=== PATIENT | female | born 1965 | race Caucasian/White ===

== ENCOUNTER 2018-09-20 08:34 | Inpatient (IN) ==
[2018-09-20] MEDS ORDERED: Sod Chloride 0.9% Inj 1,000 ML IV.SIG ONE (09:07)
[2018-09-20] MEDS ORDERED: HYDROmorphone PF Inj 2 MG/ML Vial IV.PUSH ONE ×2 (09:07→11:29)
[2018-09-20] MEDS ORDERED: Sod Chloride 0.9% Inj 1,000 ML IV.CONT SCH (09:15)
[2018-09-20 10:16] LABS: Baso # (Auto) 0.1 th/mm3 (0.0-0.2); Baso % (Auto) 0.9 % (0.0-2.0); Eos # (Auto) 0.1 th/mm3 (0.0-0.4); Eos % (Auto) 0.5 % (0.0-4.0); Hematocrit 38.1 % (35.0-46.0); Hemoglobin 12.7 gm/dL (11.6-15.3); Lymph # (Auto) 0.9 th/mm3 (1.0-4.8); Lymph % (Auto) 7.9 % (9.0-44.0); Mean Corpuscular HGB Conc 33.2 % (32.0-36.0); Mean Corpuscular Hemoglobin 32.4 pg (27.0-34.0); Mean Corpuscular Volume 97.5 fL (80.0-100.0); Mean Platelet Volume 8.7 fL (7.0-11.0); Mono # (Auto) 0.9 th/mm3 (0.0-0.9); Mono % (Auto) 7.9 % (0.0-8.0); Neut # (Auto) 9.1 th/mm3 (1.8-7.7); Neut % (Auto) 82.8 % (16.0-70.0); Platelet Count 534 th/mm3 (150-450); Red Blood Count 3.91 mil/mm3 (4.00-5.30); Red Cell Distribution Width 16.3 % (11.6-17.2)
[2018-09-20 10:45] LABS: Alanine Aminotransferase 22 U/L (10-53); Alkaline Phosphatase 183 U/L (45-117); Total Protein 8.3 g/dL (6.4-8.2)
[2018-09-20 10:50] LABS: Albumin 2.8 g/dL (3.4-5.0); Anion Gap 12 meq/L (5-15); Aspartate Aminotransferase 58 U/L (15-37); Blood Urea Nitrogen 14 mg/dL (7-18); Calcium 8.9 mg/dL (8.5-10.1); Carbon Dioxide 25.1 meq/L (21.0-32.0); Chloride 104 meq/L (98-107); Glomerular Filtration Rate 57 mL/min (>89); Glucose,Random 136 mg/dL (74-106); Lipase 25 U/L (73-393); Magnesium 1.8 mg/dL (1.5-2.5); Sodium 141 meq/L (136-145)
[2018-09-20 11:01] LABS: Potassium 5.1 meq/L (3.5-5.1)
[2018-09-20] MEDS ORDERED: Sod Chloride 0.9% Inj 1,000 ML IV.SIG SCH (11:30)
--- NOTE | 2018-09-20 11:39 | ED ---
HPI General Chief complaint: Weakness Stated complaint: weakness/back pain Time Seen by Provider: 09/20/18 08:55 Source: patient, family and RN notes reviewed Mode of arrival: ambulatory Limitations: no limitations History of Present Illness HPI Narrative: Is a 52-year-old woman presents emergency department complaining of back and abdominal pain, and generalized weakness. In January of this year she reportedly had a bowel perforation treated with abdominal surgery complicated by wound infection and fistula formation. This was done in [place]. She also then had recurring surgeries for repair. Her most recent surgery was August 07 for repair of the fistula. She still has a wound but apparently is no longer having drainage of fluid. She has had persistent abdominal pain. She had a history of chronic abdominal pain prior to her surgery in January. They have been weaning her off opiates. She has not been on opiates for the past month or so since her surgery. She states today she is been having worsening generalized weakness, unable to walk for the past several days, with worsening back pain that she attributes to her pain. They apparently did some kind of muscle flap feels a rib puller to cover the abdominal wound. She had back pain since. Other abdominal surgical history includes hysterectomy, gastric bypass surgery in 2003, as well as a gallbladder removal. Related Data Home Medications Medication Instructions Recorded Confirmed amitriptyline 200 mg PO DAILY 09/20/18 09/20/18 baclofen 20 mg PO TID 09/20/18 09/20/18 levothyroxine 50 mcg PO DAILY 09/20/18 09/20/18 metoprolol tartrate 25 mg PO BID 09/20/18 09/20/18 Allergies Allergy/AdvReac Type Severity Reaction Status Date / Time bee venom protein (honey bee) Allergy Unconscious Verified 09/20/18 08:43 codeine Allergy Itching Verified 09/20/18 08:43 Penicillins Allergy Itching Verified 09/20/18 08:43 Review of Systems ROS: all other systems reviewed are negative [facility] Medical History Medical History Patient denies medical problems (Acute) Surgical History Surgical History H/O abdominal surgery (Acute) Social History Social History Second Hand Smoke Exposure: No Smoking Status: Never smoker How Often Do You Have a Drink Containing Alcohol: Never Recent Travel in [place] within the Last 8 Weeks: No Recent Out of Country Travel within the Last 8 Weeks: No Immunization History Tetanus Immunization: Unsure Exam Narrative Exam Narrative: GENERAL: Frail 52-year-old woman, moaning in pain, nontoxic. SKIN: Focused skin assessment warm/dry. HEAD: Atraumatic. Normocephalic. EYES: Pupils equal and round. No scleral icterus. No injection or drainage. ENT: No nasal bleeding or discharge. Mucous membranes pink and moist. NECK: Trachea midline. No JVD. CARDIOVASCULAR: Rapid but regular rate. No murmur appreciated. RESPIRATORY: No accessory muscle use. Clear to auscultation. Breath sounds equal bilaterally. GASTROINTESTINAL: Abdomen soft. Mild diffuse tenderness. No rebound or guarding. There is an abdominal wound in the middle. There is a gauze dressing over that. Wound is about 3 x 3 cm in size or so. No drainage. MUSCULOSKELETAL: No obvious deformities. No clubbing. No cyanosis. No edema. NEUROLOGICAL: Awake and alert. No obvious cranial nerve deficits. Motor grossly within normal limits. Normal speech. PSYCHIATRIC: Appropriate mood and affect; insight and judgment normal. Course Initial Documented Vital Signs Temperature 97.9 F 09/20/18 08:38 Pulse Rate 144 H 09/20/18 08:38 Respiratory Rate 22 09/20/18 08:38 Blood Pressure 131/73 09/20/18 08:38 Pulse Oximetry 100 09/20/18 08:38 Last Documented Vital Signs Temperature 97.9 F 09/20/18 08:38 Pulse Rate 120 H 09/20/18 12:57 Respiratory Rate 17 09/20/18 12:57 Blood Pressure 133/81 09/20/18 12:57 Pulse Oximetry 100 09/20/18 12:57 Medical Decision Making [facility] Narrative Medical decision making narrative: 52-year-old woman with complex abdominal surgical history presented with worsening abdominal and back pain associate with generalized weakness. She eats normal food now. Has since her last surgery. She was on TPN in the past. She states her bowel movements been relatively normal for her, she does have some alternating constipation and diarrhea since her surgeries. She looks dehydrated. Heart rate rapid. We will give IV fluid rehydration, pain control, imaging, electrolyte check, reassess. Medical Screen Exam Complete: Yes Emergency Medical Condition: Yes Lab Data Result diagrams: 09/20/18 09:30 09/20/18 09:30 Lab Results 09/20/18 09/20/18 Range/Units 09:30 09:30 WBC 11.0 (4.0-11.0) th/mm3 RBC 3.91 L (4.00-5.30) mil/mm3 Hgb 12.7 (11.6-15.3) gm/dL Hct 38.1 (35.0-46.0) % MCV 97.5 (80.0-100.0) fL MCH 32.4 (27.0-34.0) pg MCHC 33.2 (32.0-36.0) % RDW 16.3 (11.6-17.2) % Plt Count 534 H (150-450) th/mm3 MPV 8.7 (7.0-11.0) fL Neut % (Auto) 82.8 H (16.0-70.0) % Lymph % (Auto) 7.9 L (9.0-44.0) % [place] % (Auto) 7.9 (0.0-8.0) % Eos % (Auto) 0.5 (0.0-4.0) % Baso % (Auto) 0.9 (0.0-2.0) % Neut # (Auto) 9.1 H (1.8-7.7) th/mm3 Lymph # (Auto) 0.9 L (1.0-4.8) th/mm3 [place] # (Auto) 0.9 (0.0-0.9) th/mm3 Eos # (Auto) 0.1 (0.0-0.4) th/mm3 Baso # (Auto) 0.1 (0.0-0.2) th/mm3 WBC Differential . Differential Comment Auto diff final Sodium 141 (136-145) meq/L Potassium 5.1 (3.5-5.1) meq/L Chloride 104 (98-107) meq/L Carbon Dioxide 25.1 (21.0-32.0) meq/L Anion Gap 12 (5-15) meq/L BUN 14 (7-18) mg/dL Creatinine 1.02 H (0.50-1.00) mg/dL Estimated GFR 57 L (>89) mL/min Random Glucose 136 H (74-106) mg/dL Calcium 8.9 (8.5-10.1) mg/dL Magnesium 1.8 (1.5-2.5) mg/dL Total Bilirubin 0.4 (0.2-1.0) mg/dL AST 58 H (15-37) U/L ALT 22 (10-53) U/L Alkaline Phosphatase 183 H (45-117) U/L Total Protein 8.3 H (6.4-8.2) g/dL Albumin 2.8 L (3.4-5.0) g/dL Lipase 25 L (73-393) U/L Imaging Data Radiologist's impression: Abdomen/Pelvis CT 09/20/18 09:07 CONCLUSION: 1. Status post extensive abdominal surgery with partial bowel resection. There is a nonspecific bowel gas pattern present with a high density structure in the right mid pelvis of unclear significance. This could represent inspissated barium outside the bowel. Correlation with any old outside studies and clinical history would be helpful. 2. Status post splenectomy. 3. The osseous structures are intact. There is mild osteopenia and scoliosis. 4. Status post cholecystectomy with gas in the central biliary system which may be secondary to anastomosis. 5. Moderate hepatic steatosis. ECG Data Attestation: I personally reviewed and interpreted this ECG as follows: Interpretation: Sinus tachycardia 133, nonspecific lateral ST changes could represent rate ischemia, no definite ischemia, normal axis, and normal intervals. Discharge Plan Discharge Disposition Patient Disposition: 30 Still Patient Physicians Team ED Provider: Antoine Fontaine Primary Care Provider: UNKNOWN, Attending Provider: Blaine Freeman Interventions Interventions: Vital Signs Last Done: 09/20/18 12:57 Status ED Status: Admitted Observation Patient
--- NOTE | 2018-09-20 12:46 | CT ---
EXAM DATE: 09/20/2018 12:09 PM EDT AGE/SEX: 52 years / Female INDICATIONS: Fatigue and back pain since yesterday CLINICAL DATA: This is the patient's initial encounter. Patient reports that signs and symptoms have been present for 1 day and indicates a pain score of 10/10. MEDICAL/SURGICAL HISTORY: None. . Abdomen surgery ORAL CONTRAST: No oral contrast ingested. RADIATION DOSE: 9.46 CTDI (mGy) COMPARISON: No prior exams available for comparison. TECHNIQUE: Multiple contiguous axial images were obtained through the abdomen and pelvis following b olus infusion of 97 ml Omnipaque 350 (iohexol) nonionic water-soluble contrast as a single exam dos e. No oral contrast ingested. Using automated exposure control and adjustment of the mA and/or kV ac cording to patient size, radiation dose was kept as low as reasonably achievable to obtain optimal di agnostic quality images. DICOM format image data is available electronically for review and comparis on. FINDINGS: Lower Lungs: The visualized lower lungs are clear. Liver: The liver has a homogeneous density without space-occupying lesion. There is no dilation of th e biliary tree. There is moderate hepatic steatosis. The patient is status post cholecystectomy and t here is air in the central biliary system. Spleen: The patient is status post splenectomy. Pancreas: Unremarkable without mass or calcification. Kidneys: Normal in size and shape. No evidence of mass or hydronephrosis. Adrenal Glands: Unremarkable. Aorta: The aorta and proximal iliac vessels are grossly unremarkable without aneurysmal dilation. T here is an inferior vena caval filter present. Bowel/Mesentery: No oral contrast was given limiting the sensitivity of the exam. Extensive postsurg ical changes are noted with multiple surgical clips and chandan. There are multiple loops of nondilat ed air-containing small bowel with several small air-fluid levels. The patient is status post partial bowel resection. There is no free air or fluid. There is a high density structure in the right mid p ree measuring up to approximately 1.5 x 2.3 cm in greatest diameter. This measures 3000 Hounsfield units. Abdominal Wall: Intact. Retroperitoneum: No evidence of adenopathy in the retrocrural, para-aortic, or deep pelvic regions. Bladder: Contours are smooth. Reproductive Organs: No abnormal masses or calcifications seen. Inguinal: The inguinal region is unremarkable without evidence of adenopathy. Bony Structures: Osteopenia, degenerative changes and mild scoliosis are present. Patient is status post left hip arthroplasty. There is an old healed right inferior pubic rami fracture. CONCLUSION: 1. Status post extensive abdominal surgery with partial bowel resection. There is a nonspecific raya l gas pattern present with a high density structure in the right mid pelvis of unclear significance. This could represent inspissated barium outside the bowel. Correlation with any old outside studies a nd clinical history would be helpful. 2. Status post splenectomy. 3. The osseous structures are intact. There is mild osteopenia and scoliosis. 4. Status post cholecystectomy with gas in the central biliary system which may be secondary to anas tomosis. 5. Moderate hepatic steatosis. Electronically signed by: Blaine Cameron MD 09/20/2018 12:44 PM EDT
[2018-09-20] MEDS ORDERED: Acetaminophen 325 MG Tablet PO PRN (14:32)
[2018-09-20] MEDS ORDERED: Vancomycin Consult Pharmacy OTHER PRN (15:28)
--- NOTE | 2018-09-20 15:33 | P.HPIM ---
History of Present Illness Primary Care Physician: UNKNOWN Chief Complaint: Abdominal and back pain History of Present Illness: The patient is a 52-year-old female with past medical history of bowel obstruction and fistula formation who is presenting to the hospital with severe back and abdominal pain. She says yesterday she developed upper back pain. She says she noticed it when she was trying to ambulate. She associated weakness with it. She says the upper back pain is a 10 out of 10 in severity and has no radiation. She describes it as a squeezing type of ache. She denies any shortness of breath or chest pain. She does endorse palpitations. The patient says she also developed abdominal pain about 2 weeks ago. She says in July she had abdominal surgery which led to fistula formation. She says over the past couple of weeks she developed generalized severe abdominal pain. She is able to tolerate a diet. She has not been nauseous. She has been having normal bowel movements. She says she follows up with a surgeon at an outside hospital but has not seen the surgeon since she started to have the abdominal pain. She says she has an abdominal wound which has been bandaged. She follows up with her surgeon for that. She denies any drainage from the wound. Review of Systems All other systems reviewed negative except as stated in HPI PMFSH - History History Provided By: Patient, Family Member - Medical History Medical History: Medical History (Last Updated 09/20/18 @ 15:37 by Blaine Freeman DO) Bowel obstruction Hypothyroidism Pulmonary embolism TIA (transient ischemic attack) - Surgical History Surgical History: Surgical History (Last Reviewed 09/20/18 @ 15:37 by Blaine Freeman DO) H/O abdominal surgery - Family History Family History: Family History (Last Updated 09/20/18 @ 15:37 by Blaine Freeman DO) Other No pertinent family history - Social History I have reviewed the patient's Social History: Yes - Tobacco History Second Hand Smoke Exposure: No Tobacco Use In Past 30 Days: No Smoking Status: Never smoker - Alcohol History How Often Do You Have a Drink Containing Alcohol: Never - Travel History Recent Travel in the [place] Within the Last 8 Weeks: No Recent Travel Out of the Country Within the Last 8 Weeks: No - Immunization History Tetanus Immunization: Unsure Medications and Allergies Active Medications: Active Medications Acetaminophen (Tylenol) 650 mg PO Q4H PRN PRN Reason: Temp > 100.4, pain 1-2 Amitriptyline HCl (Elavil) 200 mg PO DAILY [facility] Baclofen (Lioresal) 20 mg PO TID [facility] Enoxaparin Sodium (Lovenox Inj) 30 mg SQ Q24H [facility] Sodium Chloride (Ns Inj) 1,000 mls @ 125 mls/hr IV.CONT .Q8H [facility] Stop: 09/20/18 17:14 Last Admin: 09/20/18 09:40 Dose: 125 mls/hr Cefepime HCl 2,000 mg/ Sodium (Chloride) 100 mls @ 200 mls/hr IV.SIG Q8H [facility] Levothyroxine Sodium (Synthroid) 50 mcg PO DAILY@0600 [facility] Metoprolol Tartrate (Lopressor) 25 mg PO BID [facility] Ondansetron HCl (Zofran Inj) 4 mg IV.PUSH Q6H PRN PRN Reason: NAUSEA OR VOMITING Pharmacy Profile Note (Vancomycin Consult Pharmacy) 1 each OTHER UNSCH PRN PRN Reason: Pharmacy to dose Senna/Docusate Sodium (Lin-Colace) 1 tab PO BID [facility] Sodium Chloride (Ns Flush) 2 ml IV.FLUSH PRN PRN PRN Reason: FLUSH AFTER USING IV ACCESS Allergies Allergy/AdvReac Type Severity Reaction Status Date / Time bee venom protein (honey bee) Allergy Unconscious Verified 09/20/18 08:43 codeine Allergy Itching Verified 09/20/18 08:43 Penicillins Allergy Itching Verified 09/20/18 08:43 Home Medications Medication Instructions Recorded Confirmed Type amitriptyline 200 mg PO DAILY 09/20/18 09/20/18 History baclofen 20 mg PO TID 09/20/18 09/20/18 History levothyroxine 50 mcg PO DAILY 09/20/18 09/20/18 History metoprolol tartrate 25 mg PO BID 09/20/18 09/20/18 History Exam Vital signs: Vital Signs 09/20/18 08:38 09/20/18 10:26 09/20/18 12:57 Temperature 97.9 F Pulse Rate 144 H 120 H 120 H Respiratory Rate 22 17 17 Blood Pressure 131/73 118/82 133/81 Pulse Oximetry 100 100 100 09/20/18 15:25 Temperature Pulse Rate 107 H Respiratory Rate 18 Blood Pressure 132/78 Pulse Oximetry 99 Intake & Output 09/19/18 09/20/18 09/20/18 18:59 06:59 18:59 Intake Total 1999 Balance 1999 Weight 54.431 kg Intake: IV 1999 NS Inj 1,000 ML @ 1000 mls/hr 1999 IV.SIG BOLUS [facility] Rx#:[id number] Narrative: GENERAL: No distress. SKIN: Focused skin assessment warm/dry. HEAD: Atraumatic. Normocephalic. EYES: Pupils equal and round. No scleral icterus. No injection or drainage. ENT: No nasal bleeding or discharge. Mucous membranes pink and moist. NECK: Trachea midline. No JVD. CARDIOVASCULAR: Tachycardic. No murmur appreciated. RESPIRATORY: No accessory muscle use. Clear to auscultation. Breath sounds equal bilaterally. GASTROINTESTINAL: Abdomen soft. Mild diffuse tenderness. No rebound or guarding. There is an abdominal wound in the middle. Wound is about 3 x 3 cm with purulent drainage. MUSCULOSKELETAL: No obvious deformities. No clubbing. No cyanosis. No edema. NEUROLOGICAL: Awake and alert. No obvious cranial nerve deficits. Motor grossly within normal limits. Normal speech. PSYCHIATRIC: Appropriate mood and affect; insight and judgment normal. Results - Labs CBC & Chem 7: 09/20/18 09:30 09/20/18 09:30 Labs: Short CBC 09/20/18 Range/Units 09:30 WBC 11.0 (4.0-11.0) th/mm3 Hgb 12.7 (11.6-15.3) gm/dL Hct 38.1 (35.0-46.0) % Plt Count 534 H (150-450) th/mm3 BMP 09/20/18 09:30 Sodium 141 Potassium 5.1 Chloride 104 Carbon Dioxide 25.1 BUN 14 Creatinine 1.02 H Calcium 8.9 Liver Function 09/20/18 Range/Units 09:30 Total Bilirubin 0.4 (0.2-1.0) mg/dL AST 58 H (15-37) U/L ALT 22 (10-53) U/L Alkaline Phosphatase 183 H (45-117) U/L Albumin 2.8 L (3.4-5.0) g/dL - Imaging Impressions Abdomen/Pelvis CT 09/20/18 09:07 CONCLUSION: 1. Status post extensive abdominal surgery with partial bowel resection. There is a nonspecific bowel gas pattern present with a high density structure in the right mid pelvis of unclear significance. This could represent inspissated barium outside the bowel. Correlation with any old outside studies and clinical history would be helpful. 2. Status post splenectomy. 3. The osseous structures are intact. There is mild osteopenia and scoliosis. 4. Status post cholecystectomy with gas in the central biliary system which may be secondary to anastomosis. 5. Moderate hepatic steatosis. Caprini VTE Risk Assessment Caprini VTE Risk Assessment: Moderate/High Risk (score >= 2) Caprini Risk Assessment Model: Point Value = 1 Point Value = 2 Point Value = 3 Point Value = 5 Age 41-60 Minor surgery BMI > 25 kg/m2 Swollen legs Varicose veins or History of unexplained or recurrent spontaneous Oral contraceptives or hormone replacement Sepsis (< 1 month) Serious lung disease, including pneumonia (< 1 month) Abnormal pulmonary function Acute myocardial infarction Congestive heart failure (< 1 month) History of inflammatory bowel disease Medical patient at bed rest Age 61-74 Arthroscopic surgery Major open surgery (> 45 min) Laparoscopic surgery (> 45 min) Malignancy Confined to bed (> 72 hours) Immobilizing plaster cast Central venous access Age >= 75 History of VTE Family history of VTE Factor V Leiden Prothrombin [id number] Lupus anticoagulant Anticardiolipin antibodies Elevated serum homocysteine Heparin-induced thrombocytopenia Other congenital or acquired thrombophilia Stroke (< 1 month) Elective arthroplasty Hip, pelvis, or leg fracture Acute spinal cord injury (< 1 month) Prophylaxis Regimen: Total Risk Factor Score Risk Level Prophylaxis Regimen 0-1 Low Early ambulation 2 Moderate Order ONE of the following: *Sequential Compression Device (SCD) *Heparin 5000 units SQ BID 3-4 Higher Order ONE of the following medications: *Heparin 5000 units SQ TID *Enoxaparin/Lovenox 40 mg SQ daily (WT < 150 kg, CrCl > 30 mL/min) *Enoxaparin/Lovenox 30 mg SQ daily (WT < 150 kg, CrCl > 10-29 mL/min) *Enoxaparin/Lovenox 30 mg SQ BID (WT < 150 kg, CrCl > 30 mL/min) AND/OR *Sequential Compression Device (SCD) 5 or more Highest Order ONE of the following medications: *Heparin 5000 units SQ TID (Preferred with Epidurals) *Enoxaparin/Lovenox 40 mg SQ daily (WT < 150 kg, CrCl > 30 mL/min) *Enoxaparin/Lovenox 30 mg SQ daily (WT < 150 kg, CrCl > 10-29 mL/min) *Enoxaparin/Lovenox 30 mg SQ BID (WT < 150 kg, CrCl > 30 mL/min) AND *Sequential Compression Device (SCD) Assessment and Plan - Plan Abdominal fistula/Abdominal pain The pt says she had surgery in July. She has had severe abdominal pain for two weeks. CT abdomen: Status post extensive abdominal surgery with partial bowel resection; There is a nonspecific bowel gas pattern present with a high density structure in the right mid pelvis of unclear significance, this could represent inspissated barium outside the bowel. She has an abdominal fistula with purulent drainage. -general surgery evaluation requested. -wound and blood cultures. -IV cefepime and vancomycin. -IVFs. -pain control with a bowel regimen. Severe back pain Pain in the upper back starting one day prior to admission. EKG with sinus tachycardia. Oxygen saturation is normal. No chest pain or shortness of breath. Tender to palpation of upper back, may be musculoskeletal. -trend trops. -CXR pending. -telemetry. -pain control. -PT eval. -check a D-dimer. CTA if positive. The pt does have a history of PE. Renal insufficiency Creatinine is elevated. -IVFs and monitor. -avoid nephrotoxins. Tachycardia Sinus, likely s/t above. -telemetry. -continue Lopressor. PPx: Lovenox
--- NOTE | 2018-09-20 15:55 | XR ---
EXAM DATE: 09/20/2018 3:51 PM EDT AGE/SEX: 52 years / Female INDICATIONS: Chest pain. CLINICAL DATA: This is the patient's initial encounter. Patient reports that signs and symptoms have been present for 1 day and indicates a pain score of 6/10. MEDICAL/SURGICAL HISTORY: None. . Abdominal surgery. COMPARISON: No prior exams available for comparison. FINDINGS: The heart is minimally enlarged. There is mild interstitial prominence. There is no evidence consolid ation, pleural effusion or pneumothorax. Degenerative changes are present about the right shoulder. Surgical clips are seen in the left hemidiaphragm. CONCLUSION: Cardiomegaly with probable mild interstitial edema. Electronically signed by: Aditya Dougherty MD 09/20/2018 3:54 PM EDT
[2018-09-20] MEDS: Enoxaparin Inj 30 MG/0.3 ML Syringe SQ SCH (15:57)
[2018-09-20] MEDS ORDERED: Vancomycin Inj 1,000 MG in Sodium Chlor 0.9% Inj 250 ML IV.SIG SCH (17:00)
[2018-09-20] MEDS ORDERED: Morphine Inj 4 MG/ML Vial IV.PUSH PRN (17:00)
[2018-09-20] MEDS: HYDROmorphone PF Inj 1 MG/ML Ampul IV.PUSH PRN (17:03)
--- NOTE | 2018-09-20 17:45 | P.CONGS ---
[facility] Gen Surgery Consult Note Consult date: 09/20/18 Narrative: 52 yo F extensive previous surgical history presented with abdominal pain and abdominal wound. She has had worsening abdominal pain for the last 2 weeks. She has continued to have bowel movements and seems to be tolerating diet. Unfortunately, she has had a extensive surgical history and she is not a very good historian. It sounds like she has had a gastric bypass, and exploratory laparotomy for bowel obstruction including a splenectomy, and 6 months ago in [place] exploratory laparotomy for small bowel obstruction. She relates that she followed up with her surgeon once. She does not remember his name. She has had a large abdominal wound possible fistula since that time and it sounds like she may be following up with another physician for this. Again it is hard to obtain an accurate history as far as what has been going on in the distant past and recently. CT abdomen and pelvis was performed showing extensive previous surgery, clips throughout the abdomen, history of splenectomy and cholecystectomy, air in the central biliary tree, some calcified mass in the right lower abdomen quite possibly outside the bowel. Review of Systems All other systems reviewed negative except as stated in [facility] - History History Provided By: Patient - Medical History Medical History: Medical History (Last Updated 09/20/18 @ 15:37 by Blaine rFeeman DO) Bowel obstruction Hypothyroidism Pulmonary embolism TIA (transient ischemic attack) - Surgical History Surgical History: Surgical History (Last Reviewed 09/20/18 @ 15:37 by Blaine Freeman DO) H/O abdominal surgery - Family History Family History: Family History (Last Updated 09/20/18 @ 15:37 by Blaine Freeman DO) Other No pertinent family history - Tobacco History Second Hand Smoke Exposure: No Tobacco Use In Past 30 Days: No Smoking Status: Never smoker - Alcohol History How Often Do You Have a Drink Containing Alcohol: Never - Substance Use History Substance History: No History of Abuse - Travel History Recent Travel in the [place] Within the Last 8 Weeks: No Recent Travel Out of the Country Within the Last 8 Weeks: No - Immunization History Tetanus Immunization: Unsure Medications and Allergies Active Medications: Active Medications Acetaminophen (Tylenol) 650 mg PO Q4H PRN PRN Reason: Temp > 100.4, pain 1-2 Hydrocodone Bitart/Acetaminophen ([place] 7.5/325) 1 tab PO Q4H PRN PRN Reason: pain 3-10 Amitriptyline HCl (Elavil) 200 mg PO DAILY [facility] Baclofen (Lioresal) 20 mg PO TID [facility] Last Admin: 09/20/18 16:41 Dose: 20 mg Enoxaparin Sodium (Lovenox Inj) 30 mg SQ Q24H [facility] Last Admin: 09/20/18 15:57 Dose: 30 mg Hydromorphone HCl (Dilaudid Pf Inj) 1 mg IV.PUSH Q4H PRN PRN Reason: BREAKTHROUGH PAIN Last Admin: 09/20/18 17:03 Dose: 1 mg Cefepime HCl 2,000 mg/ Sodium (Chloride) 100 mls @ 200 mls/hr IV.SIG Q8H [facility] Last Admin: 09/20/18 16:37 Dose: Not Given Vancomycin HCl 1,000 mg/ (Sodium Chloride) 250 mls @ 250 mls/hr IV.SIG Q24H [facility] Last Admin: 09/20/18 16:41 Dose: 250 mls/hr Levothyroxine Sodium (Synthroid) 50 mcg PO DAILY@0600 [facility] Metoprolol Tartrate (Lopressor) 25 mg PO BID [facility] Miscellaneous Information ([facility] Ordered Lab Info) 0 each OTHER ONCE ONE Stop: 09/23/18 16:46 Ondansetron HCl (Zofran Inj) 4 mg IV.PUSH Q6H PRN PRN Reason: NAUSEA OR VOMITING Pharmacy Profile Note (Vancomycin Consult Pharmacy) 1 each OTHER UNSCH PRN PRN Reason: Pharmacy to dose Senna/Docusate Sodium (Lin-Colace) 1 tab PO BID [facility] Sodium Chloride (Ns Flush) 2 ml IV.FLUSH PRN PRN PRN Reason: FLUSH AFTER USING IV ACCESS Allergies Allergy/AdvReac Type Severity Reaction Status Date / Time bee venom protein (honey bee) Allergy Unconscious Verified 09/20/18 08:43 codeine Allergy Itching Verified 09/20/18 08:43 Penicillins Allergy Itching Verified 09/20/18 08:43 Home Medications Medication Instructions Recorded Confirmed Type amitriptyline 200 mg PO DAILY 09/20/18 09/20/18 History baclofen 20 mg PO TID 09/20/18 09/20/18 History levothyroxine 50 mcg PO DAILY 09/20/18 09/20/18 History metoprolol tartrate 25 mg PO BID 09/20/18 09/20/18 History Exam Vital signs: Vital Signs 09/20/18 08:38 09/20/18 10:26 09/20/18 12:57 Temperature 97.9 F Pulse Rate 144 H 120 H 120 H Respiratory Rate 22 17 17 Blood Pressure 131/73 118/82 133/81 Pulse Oximetry 100 100 100 09/20/18 15:25 09/20/18 16:17 09/20/18 16:25 Temperature 98.9 F Pulse Rate 107 H 120 H 123 H Respiratory Rate 18 18 Blood Pressure 132/78 115/91 H Pulse Oximetry 99 100 Intake & Output 09/19/18 09/20/18 09/20/18 18:59 06:59 18:59 Intake Total 2099 Balance 2099 Weight 54.431 kg Intake: IV 2099 Maxipime Inj 2,000 MG In NS Inj 100 / 100 100 ML @ 200 mls/hr IV.SIG Q8H [facility] Rx#:[id number] NS Inj 1,000 ML @ 1000 mls/hr 1999 IV.SIG BOLUS [facility] Rx#:[id number] Narrative: GENERAL: Awake and alert. No acute distress. Cooperative. Somewhat chronically ill-appearing. Appears older than stated age. HEAD: Normocephalic. Atraumatic. EYES: Pupils equal round and reactive to light bilaterally. No scleral icterus. ENT: Moist oral mucosa. NECK: Trachea midline. CHEST: Nonlabored breathing. No respiratory distress. CARDIOVASCULAR: Regular rate and rhythm. ABDOMEN: Diffuse moderate tenderness. Extensive scarring of the abdominal wall. Granulating wound with some exudate in the midportion as well as visible fascial suture deeply. This is in the midline approximately 10 x 6 cm. No obvious intestinal drainage from this wound. EXTREMITIES: No cyanosis or edema. SKIN: Warm, dry, nonjaundiced. Results - Labs 09/20/18 09:30 09/21/18 03:12 Laboratory Results - last 24 hr 09/20/18 09/20/18 09/20/18 09:30 09:30 16:14 WBC 11.0 RBC 3.91 L Hgb 12.7 Hct 38.1 MCV 97.5 MCH 32.4 MCHC 33.2 RDW 16.3 Plt Count 534 H MPV 8.7 Neut % (Auto) 82.8 H Lymph % (Auto) 7.9 L [place] % (Auto) 7.9 Eos % (Auto) 0.5 Baso % (Auto) 0.9 Neut # (Auto) 9.1 H Lymph # (Auto) 0.9 L [place] # (Auto) 0.9 Eos # (Auto) 0.1 Baso # (Auto) 0.1 WBC Differential . Differential Comment Auto diff final Sodium 141 Potassium 5.1 Chloride 104 Carbon Dioxide 25.1 Anion Gap 12 BUN 14 Creatinine 1.02 H Estimated GFR 57 L POC Glucose 94 Random Glucose 136 H Calcium 8.9 Magnesium 1.8 Total Bilirubin 0.4 AST 58 H ALT 22 Alkaline Phosphatase 183 H Total Protein 8.3 H Albumin 2.8 L Lipase 25 L - Imaging Imaging: ITS Impressions Abdomen/Pelvis CT 09/20/18 09:07 CONCLUSION: 1. Status post extensive abdominal surgery with partial bowel resection. There is a nonspecific bowel gas pattern present with a high density structure in the right mid pelvis of unclear significance. This could represent inspissated barium outside the bowel. Correlation with any old outside studies and clinical history would be helpful. 2. Status post splenectomy. 3. The osseous structures are intact. There is mild osteopenia and scoliosis. 4. Status post cholecystectomy with gas in the central biliary system which may be secondary to anastomosis. 5. Moderate hepatic steatosis. Chest X-Ray 09/20/18 15:31 CONCLUSION: Cardiomegaly with probable mild interstitial edema. CT scan - abdomen: report reviewed, image reviewed CT scan - pelvis: report reviewed, image reviewed Assessment and Plan - Assessment (1) Open abdominal wall wound Code(s): S31.109A - Unspecified open wound of abdominal wall, unspecified quadrant without penetration into peritoneal cavity, initial encounter Status : Acute (2) History of splenectomy Code(s): Z90.81 - Acquired absence of spleen Status: Acute (3) History of gastric bypass Code(s): Z98.84 - Bariatric surgery status Status: Acute (4) Abdominal pain Code(s): R10.9 - Unspecified abdominal pain Status: Acute - Plan Large deep abdominal wall wound possible fistula. It is unclear who has been caring for this. Will consult wound care. Monitor for intestinal drainage. Abdominal pain with extensive abdominal surgical history. Obtain recent op reports from [place] and from [facility] in [place]. Ok for soft diet for now. Will repeat CT a/p with oral contrast for better evaluation.
[2018-09-21] MEDS: Metoprolol Tartrate 25 MG Tablet PO SCH ×3 (00:07→22:32)
[2018-09-21] MEDS: Senna/Docusate Sodium 8.6/50 MG Tablet PO SCH ×3 (00:07→22:47)
[2018-09-21 01:16] LABS: Bilirubin,Urine Negative (Negative); Clarity,Urine Slightly Cloudy (Clear); Glucose,Urine (UA) Negative (Negative); Leukocyte Esterase,Urine Small (Negative); Nitrite,Urine Negative (Negative); PH,Urine 6.5 (5.0-8.5); Urobilinogen,Urine 0.2 mg/dL (Less than 2)
[2018-09-21] MEDS: HYDROmorphone PF Inj 1 MG/ML Ampul IV.PUSH PRN ×3 (01:36→10:56)
[2018-09-21 01:52] LABS: Specific Gravity,Urine 1.019 (1.002-1.035); WBC,Urine 21-50 /hpf (0-5)
[2018-09-21 01:53] LABS: Squamous Epithelial Cell,Urine 0-5 /hpf (0-5)
[2018-09-21 01:54] LABS: Bacteria,Urine Few /hpf
[2018-09-21 04:25] LABS: Alanine Aminotransferase 16 U/L (10-53); Albumin 2.6 g/dL (3.4-5.0); Alkaline Phosphatase 161 U/L (45-117); Anion Gap 11 meq/L (5-15); Aspartate Aminotransferase 19 U/L (15-37); Blood Urea Nitrogen 8 mg/dL (7-18); Calcium 7.8 mg/dL (8.5-10.1); Carbon Dioxide 27.5 meq/L (21.0-32.0); Chloride 106 meq/L (98-107); Glomerular Filtration Rate Greater Than 89 mL/min (>89); Glucose,Random 94 mg/dL (74-106); Sodium 144 meq/L (136-145); Total Protein 7.3 g/dL (6.4-8.2)
[2018-09-21] MEDS: Levothyroxine 50 MCG Tablet PO SCH (05:32)
[2018-09-21 07:26] LABS: Baso # (Auto) 0.1 th/mm3 (0.0-0.2); Baso % (Auto) 1.5 % (0.0-2.0); Eos # (Auto) 0.6 th/mm3 (0.0-0.4); Eos % (Auto) 6.1 % (0.0-4.0); Hematocrit 34.6 % (35.0-46.0); Hemoglobin 11.5 gm/dL (11.6-15.3); Lymph # (Auto) 1.7 th/mm3 (1.0-4.8); Lymph % (Auto) 17.2 % (9.0-44.0); Mean Corpuscular HGB Conc 33.1 % (32.0-36.0); Mean Corpuscular Hemoglobin 31.7 pg (27.0-34.0); Mean Corpuscular Volume 95.7 fL (80.0-100.0); Mono # (Auto) 0.9 th/mm3 (0.0-0.9); Mono % (Auto) 8.8 % (0.0-8.0); Neut # (Auto) 6.5 th/mm3 (1.8-7.7); Neut % (Auto) 66.4 % (16.0-70.0); Platelet Count 424 th/mm3 (150-450); Red Blood Count 3.62 mil/mm3 (4.00-5.30); White Blood Count 9.8 th/mm3 (4.0-11.0)
[2018-09-21] MEDS ORDERED: Diatrizoate Meglum/Diatrizoate Sod Liq 9 ML UDC PO ONE (07:27)
[2018-09-21] MEDS: Amitriptyline 100 MG Tablet PO SCH (09:33)
--- NOTE | 2018-09-21 12:47 | P.PNIM ---
Subjective Interval history: Mrs. Morrison is a 52-year-old female admitted secondary to abdominal pain related to fistula Abdominal fistula Abdominal pain General surgery following Continue wound care Continue Comycin Continue cefepime Continue IV hydration Continue pain control Chronic back pain Continue pain management Follow clinically D-dimer is positive CTA of chest ordered Renal insufficiency IV hydration Continue monitoring renal function Avoid nephrotoxins Tachycardia May be related to pain Continue Lopressor Continue on telemetry DVT prophylaxis SCDs Lovenox Physical Exam Vital signs: Vital Signs 09/20/18 12:57 09/20/18 15:25 09/20/18 16:17 Temperature 98.9 F Pulse Rate 120 H 107 H 120 H Respiratory Rate 17 18 18 Blood Pressure 133/81 132/78 115/91 H Pulse Oximetry 100 99 100 09/20/18 16:25 09/20/18 20:00 09/20/18 22:35 Temperature 98.1 F 98.1 F Pulse Rate 123 H 104 H 109 H Respiratory Rate 14 14 Blood Pressure 133/75 149/78 H Pulse Oximetry 98 09/21/18 00:00 09/21/18 04:00 09/21/18 05:30 Temperature 98.0 F 97.9 F 98.7 F Pulse Rate 93 H 100 H 85 Respiratory Rate 20 20 20 Blood Pressure 142/82 H 118/77 122/63 Pulse Oximetry 98 99 95 09/21/18 08:00 09/21/18 11:55 Temperature 98.8 F 98.3 F Pulse Rate 105 H 106 H Respiratory Rate 18 18 Blood Pressure 145/89 H 108/67 Pulse Oximetry 99 96 Intake & Output 09/20/18 09/21/18 09/21/18 18:59 06:59 18:59 Intake Total 2350 / 2350 100 / 100 100 / 100 Balance 2350 / 2350 100 / 100 100 / 100 Weight 54.431 kg Intake: IV 2350 / 2350 100 / 100 100 / 100 Maxipime Inj 2,000 MG In NS Inj 100 / 100 100 / 100 100 / 100 100 ML @ 200 mls/hr IV.SIG Q8H [facility] Rx#:[id number] NS Inj 1,000 ML @ 1000 mls/hr 2000 / 1999 IV.SIG BOLUS [facility] Rx#:[id number] Vancomycin Inj 1,000 MG In NS 250 / 250 Inj 250 ML @ 250 mls/hr IV.SIG Q24H [facility] Rx#:[id number] Results - Labs CBC & Chem 7: 09/21/18 05:41 09/21/18 03:12 Laboratory Results - last 24 hr 09/20/18 09/20/18 09/20/18 16:14 21:09 21:09 WBC RBC Hgb Hct MCV MCH MCHC RDW Plt Count MPV Neut % (Auto) Lymph % (Auto) [place] % (Auto) Eos % (Auto) Baso % (Auto) Neut # (Auto) Lymph # (Auto) [place] # (Auto) Eos # (Auto) Baso # (Auto) WBC Differential Differential Comment D-Dimer Quant (PE/DVT) 1.36 H Sodium Potassium Chloride Carbon Dioxide Anion Gap BUN Creatinine Estimated GFR POC Glucose 94 Random Glucose Calcium Total Bilirubin AST ALT Alkaline Phosphatase Troponin I Less than 0.02 L Total Protein Albumin Urine Color Urine Clarity Urine pH Ur Specific [place] Urine Protein Urine Glucose (UA) Urine Ketones Urine Occult Blood Urine Nitrate Urine Bilirubin Urine Urobilinogen Ur Leukocyte Esterase Urine WBC Urine WBC Clumps Ur Squamous Epith Cells Urine Bacteria Micro UA Comment Ur Microscopic Review Urine Culture Comments 09/20/18 09/21/18 09/21/18 22:37 00:41 03:12 WBC RBC Hgb Hct MCV MCH MCHC RDW Plt Count MPV Neut % (Auto) Lymph % (Auto) [place] % (Auto) Eos % (Auto) Baso % (Auto) Neut # (Auto) Lymph # (Auto) [place] # (Auto) Eos # (Auto) Baso # (Auto) WBC Differential Differential Comment D-Dimer Quant (PE/DVT) Sodium 144 Potassium 3.0 L D Chloride 106 Carbon Dioxide 27.5 Anion Gap 11 BUN 8 Creatinine 0.62 Estimated GFR Greater than 89 POC Glucose 89 Random Glucose 94 Calcium 7.8 L D Total Bilirubin 0.3 AST 19 ALT 16 Alkaline Phosphatase 161 H Troponin I Less than 0.02 L Total Protein 7.3 D Albumin 2.6 L Urine Color Light-yellow Urine Clarity Slightly cloudy Urine pH 6.5 Ur Specific [place] 1.019 Urine Protein Negative Urine Glucose (UA) Negative Urine Ketones 15 H Urine Occult Blood Negative Urine Nitrate Negative Urine Bilirubin Negative Urine Urobilinogen 0.2 Ur Leukocyte Esterase Small H Urine WBC 21-50 H Urine WBC Clumps Few H Ur Squamous Epith Cells 0-5 Urine Bacteria Few H Micro UA Comment Culture indicated Ur Microscopic Review Not Reportable Urine Culture Comments Culture indicated 09/21/18 09/21/18 09/21/18 05:38 05:41 10:53 WBC 9.8 RBC 3.62 L Hgb 11.5 L Hct 34.6 L MCV 95.7 MCH 31.7 MCHC 33.1 RDW 16.0 Plt Count 424 MPV 9.0 Neut % (Auto) 66.4 Lymph % (Auto) 17.2 [place] % (Auto) 8.8 H Eos % (Auto) 6.1 H Baso % (Auto) 1.5 Neut # (Auto) 6.5 Lymph # (Auto) 1.7 [place] # (Auto) 0.9 Eos # (Auto) 0.6 H Baso # (Auto) 0.1 WBC Differential . Differential Comment Auto diff final D-Dimer Quant (PE/DVT) Sodium Potassium Chloride Carbon Dioxide Anion Gap BUN Creatinine Estimated GFR POC Glucose 81 Random Glucose Calcium Total Bilirubin AST ALT Alkaline Phosphatase Troponin I Less than 0.02 L Total Protein Albumin Urine Color Urine Clarity Urine pH Ur Specific [place] Urine Protein Urine Glucose (UA) Urine Ketones Urine Occult Blood Urine Nitrate Urine Bilirubin Urine Urobilinogen Ur Leukocyte Esterase Urine WBC Urine WBC Clumps Ur Squamous Epith Cells Urine Bacteria Micro UA Comment Ur Microscopic Review Urine Culture Comments 09/21/18 11:37 WBC RBC Hgb Hct MCV MCH MCHC RDW Plt Count MPV Neut % (Auto) Lymph % (Auto) [place] % (Auto) Eos % (Auto) Baso % (Auto) Neut # (Auto) Lymph # (Auto) [place] # (Auto) Eos # (Auto) Baso # (Auto) WBC Differential Differential Comment D-Dimer Quant (PE/DVT) Sodium Potassium Chloride Carbon Dioxide Anion Gap BUN Creatinine Estimated GFR POC Glucose 102 Random Glucose Calcium Total Bilirubin AST ALT Alkaline Phosphatase Troponin I Total Protein Albumin Urine Color Urine Clarity Urine pH Ur Specific [place] Urine Protein Urine Glucose (UA) Urine Ketones Urine Occult Blood Urine Nitrate Urine Bilirubin Urine Urobilinogen Ur Leukocyte Esterase Urine WBC Urine WBC Clumps Ur Squamous Epith Cells Urine Bacteria Micro UA Comment Ur Microscopic Review Urine Culture Comments Microbiology 09/20/18 21:05 Blood - Peripheral Aerobic Blood Culture - Preliminary No growth in 1 day 09/20/18 21:05 Blood - Peripheral Anaerobic Blood Culture - Preliminary No growth in 1 day 09/20/18 20:50 Blood - Peripheral Aerobic Blood Culture - Preliminary No growth in 1 day 09/20/18 20:50 Blood - Peripheral Anaerobic Blood Culture - Preliminary No growth in 1 day 09/20/18 16:00 Wound - Abdominal Gram Stain - Final - Imaging Impressions Abdomen/Pelvis CT 09/20/18 09:07 CONCLUSION: 1. Status post extensive abdominal surgery with partial bowel resection. There is a nonspecific bowel gas pattern present with a high density structure in the right mid pelvis of unclear significance. This could represent inspissated barium outside the bowel. Correlation with any old outside studies and clinical history would be helpful. 2. Status post splenectomy. 3. The osseous structures are intact. There is mild osteopenia and scoliosis. 4. Status post cholecystectomy with gas in the central biliary system which may be secondary to anastomosis. 5. Moderate hepatic steatosis. Chest X-Ray 09/20/18 15:31 CONCLUSION: Cardiomegaly with probable mild interstitial edema.
[2018-09-21] MEDS: oxyCODONE/Acetaminophen 10/325 Tablet PO PRN ×2 (13:27→17:03)
--- NOTE | 2018-09-21 13:39 | P.PNGS ---
Subjective Interval history: Persistent pain. Stable. WBC nml. No outside records yet despite request last night. Physical Exam Vital signs: Vital Signs 09/20/18 15:25 09/20/18 16:17 09/20/18 16:25 Temperature 98.9 F Pulse Rate 107 H 120 H 123 H Respiratory Rate 18 18 Blood Pressure 132/78 115/91 H Pulse Oximetry 99 100 09/20/18 20:00 09/20/18 22:35 09/21/18 00:00 Temperature 98.1 F 98.1 F 98.0 F Pulse Rate 104 H 109 H 93 H Respiratory Rate 14 14 20 Blood Pressure 133/75 149/78 H 142/82 H Pulse Oximetry 98 98 09/21/18 04:00 09/21/18 05:30 09/21/18 08:00 Temperature 97.9 F 98.7 F 98.8 F Pulse Rate 100 H 85 105 H Respiratory Rate 20 20 18 Blood Pressure 118/77 122/63 145/89 H Pulse Oximetry 99 95 99 09/21/18 11:55 Temperature 98.3 F Pulse Rate 106 H Respiratory Rate 18 Blood Pressure 108/67 Pulse Oximetry 96 Intake & Output 09/20/18 09/21/18 09/21/18 18:59 06:59 18:59 Intake Total 2350 / 2350 100 / 100 100 / 100 Balance 2350 / 2350 100 / 100 100 / 100 Weight 54.431 kg Intake: IV 2350 / 2350 100 / 100 100 / 100 Maxipime Inj 2,000 MG In NS Inj 100 / 100 100 / 100 100 / 100 100 ML @ 200 mls/hr IV.SIG Q8H [facility] Rx#:[id number] NS Inj 1,000 ML @ 1000 mls/hr 1999 / 1999 IV.SIG BOLUS [facility] Rx#:[id number] Vancomycin Inj 1,000 MG In NS 250 / 250 Inj 250 ML @ 250 mls/hr IV.SIG Q24H [facility] Rx#:[id number] Narrative: NAD Abd: soft, moderate diffuse ttp, midline wound granulating, purulent drainage, fascial suture visible. Results - Labs 09/21/18 05:41 09/21/18 03:12 Laboratory Results - last 24 hr 09/20/18 09/20/18 09/20/18 16:14 21:09 21:09 WBC RBC Hgb Hct MCV MCH MCHC RDW Plt Count MPV Neut % (Auto) Lymph % (Auto) [place] % (Auto) Eos % (Auto) Baso % (Auto) Neut # (Auto) Lymph # (Auto) [place] # (Auto) Eos # (Auto) Baso # (Auto) WBC Differential Differential Comment D-Dimer Quant (PE/DVT) 1.36 H Sodium Potassium Chloride Carbon Dioxide Anion Gap BUN Creatinine Estimated GFR POC Glucose 94 Random Glucose Calcium Total Bilirubin AST ALT Alkaline Phosphatase Troponin I Less than 0.02 L Total Protein Albumin Urine Color Urine Clarity Urine pH Ur Specific [place] Urine Protein Urine Glucose (UA) Urine Ketones Urine Occult Blood Urine Nitrate Urine Bilirubin Urine Urobilinogen Ur Leukocyte Esterase Urine WBC Urine WBC Clumps Ur Squamous Epith Cells Urine Bacteria Micro UA Comment Ur Microscopic Review Urine Culture Comments 09/20/18 09/21/18 09/21/18 22:37 00:41 03:12 WBC RBC Hgb Hct MCV MCH MCHC RDW Plt Count MPV Neut % (Auto) Lymph % (Auto) [place] % (Auto) Eos % (Auto) Baso % (Auto) Neut # (Auto) Lymph # (Auto) [place] # (Auto) Eos # (Auto) Baso # (Auto) WBC Differential Differential Comment D-Dimer Quant (PE/DVT) Sodium 144 Potassium 3.0 L D Chloride 106 Carbon Dioxide 27.5 Anion Gap 11 BUN 8 Creatinine 0.62 Estimated GFR Greater than 89 POC Glucose 89 Random Glucose 94 Calcium 7.8 L D Total Bilirubin 0.3 AST 19 ALT 16 Alkaline Phosphatase 161 H Troponin I Less than 0.02 L Total Protein 7.3 D Albumin 2.6 L Urine Color Light-yellow Urine Clarity Slightly cloudy Urine pH 6.5 Ur Specific [place] 1.019 Urine Protein Negative Urine Glucose (UA) Negative Urine Ketones 15 H Urine Occult Blood Negative Urine Nitrate Negative Urine Bilirubin Negative Urine Urobilinogen 0.2 Ur Leukocyte Esterase Small H Urine WBC 21-50 H Urine WBC Clumps Few H Ur Squamous Epith Cells 0-5 Urine Bacteria Few H Micro UA Comment Culture indicated Ur Microscopic Review Not Reportable Urine Culture Comments Culture indicated 09/21/18 09/21/18 09/21/18 05:38 05:41 10:53 WBC 9.8 RBC 3.62 L Hgb 11.5 L Hct 34.6 L MCV 95.7 MCH 31.7 MCHC 33.1 RDW 16.0 Plt Count 424 MPV 9.0 Neut % (Auto) 66.4 Lymph % (Auto) 17.2 [place] % (Auto) 8.8 H Eos % (Auto) 6.1 H Baso % (Auto) 1.5 Neut # (Auto) 6.5 Lymph # (Auto) 1.7 [place] # (Auto) 0.9 Eos # (Auto) 0.6 H Baso # (Auto) 0.1 WBC Differential . Differential Comment Auto diff final D-Dimer Quant (PE/DVT) Sodium Potassium Chloride Carbon Dioxide Anion Gap BUN Creatinine Estimated GFR POC Glucose 81 Random Glucose Calcium Total Bilirubin AST ALT Alkaline Phosphatase Troponin I Less than 0.02 L Total Protein Albumin Urine Color Urine Clarity Urine pH Ur Specific [place] Urine Protein Urine Glucose (UA) Urine Ketones Urine Occult Blood Urine Nitrate Urine Bilirubin Urine Urobilinogen Ur Leukocyte Esterase Urine WBC Urine WBC Clumps Ur Squamous Epith Cells Urine Bacteria Micro UA Comment Ur Microscopic Review Urine Culture Comments 09/21/18 11:37 WBC RBC Hgb Hct MCV MCH MCHC RDW Plt Count MPV Neut % (Auto) Lymph % (Auto) [place] % (Auto) Eos % (Auto) Baso % (Auto) Neut # (Auto) Lymph # (Auto) [place] # (Auto) Eos # (Auto) Baso # (Auto) WBC Differential Differential Comment D-Dimer Quant (PE/DVT) Sodium Potassium Chloride Carbon Dioxide Anion Gap BUN Creatinine Estimated GFR POC Glucose 102 Random Glucose Calcium Total Bilirubin AST ALT Alkaline Phosphatase Troponin I Total Protein Albumin Urine Color Urine Clarity Urine pH Ur Specific [place] Urine Protein Urine Glucose (UA) Urine Ketones Urine Occult Blood Urine Nitrate Urine Bilirubin Urine Urobilinogen Ur Leukocyte Esterase Urine WBC Urine WBC Clumps Ur Squamous Epith Cells Urine Bacteria Micro UA Comment Ur Microscopic Review Urine Culture Comments - Imaging Imaging: ITS Impressions Abdomen/Pelvis CT 09/20/18 09:07 CONCLUSION: 1. Status post extensive abdominal surgery with partial bowel resection. There is a nonspecific bowel gas pattern present with a high density structure in the right mid pelvis of unclear significance. This could represent inspissated barium outside the bowel. Correlation with any old outside studies and clinical history would be helpful. 2. Status post splenectomy. 3. The osseous structures are intact. There is mild osteopenia and scoliosis. 4. Status post cholecystectomy with gas in the central biliary system which may be secondary to anastomosis. 5. Moderate hepatic steatosis. Chest X-Ray 09/20/18 15:31 CONCLUSION: Cardiomegaly with probable mild interstitial edema. Assessment and Plan - Assessment (1) Open abdominal wall wound Code(s): S31.109A - Unspecified open wound of abdominal wall, unspecified quadrant without penetration into peritoneal cavity, initial encounter Status : Acute (2) History of splenectomy Code(s): Z90.81 - Acquired absence of spleen Status: Acute (3) History of gastric bypass Code(s): Z98.84 - Bariatric surgery status Status: Acute (4) Abdominal pain Code(s): R10.9 - Unspecified abdominal pain Status: Acute - Plan Large deep abdominal wall wound possible fistula. She has given more information now- was operated on most recently by Dr. Mackenzie at [facility] for fistula takedown. She most recently saw him two weeks ago and has another visit in a month or so. I called his office and spoke with his director of medical education who will be faxing medical records and we've also requested records from the hospital. Repeat CT a/p now with oral contrast for further evaluation.
--- NOTE | 2018-09-21 14:27 | P.PNWCN ---
Wound Care Nurse Consult Description: Consult for Wound Management of abdomen per Dr Chang Communicated with: DR Kevin Berry, RN Patient Recommendation: Cleanse abdominal wound with Normal Saline and gauze daily. Apply Santyl nickel thick to NS moistened 4x4 gauze [address] down into wound bed. Cover with Optifoam gentle border. Additional information: Patient seen in [facility] for wound evaluation of abdomen. Wound/Pressure Injury - Patient Status Premedicated for Pain Prior to Dressing Change: No - Wound Midline Abdomen Wound Assessment: Admission (post surgical closure of fistula at other surgical center) Requested from Provider a Wound Care Consult: Yes (Dr Chang) Length (cm): 9 (cm) Width (cm): 5 (cm) Depth (cm): 1.4 (cm) Wound Bed Appearance: Red (~60% non granulation tissue), Yellow (~40% adherent slough) Wound Bed Appearance: moist, not actively draining, fascial suture visible, pieces of wound VAC still in wound were removed. No odor noted. Hypergranulation tissue noted @6 o'clock and 8 o'clock. Wound margins are open. Surrounding Tissue Appearance: Shiny, Taut Drainage Description: removed dressing of gauze had dark yellow thin exudate Drainage Amount: Scant Drainage Odor: No Odor Dressing Status: Changed Cleansing Solution: Saline Wound Packing Type: Gauze Pads (Normal Saline moistened gauze ) Primary Dressing: Gauze Pad Cover Dressing: Gauze Pads Tape Type: Paper Wound Dressing Change Date: 09/21/18
[2018-09-21] MEDS: Collagenase Oint 30 GM Tube TOPICAL SCH (15:08)
[2018-09-21] MEDS: Enoxaparin Inj 30 MG/0.3 ML Syringe SQ SCH (15:08)
[2018-09-21] MEDS: Vancomycin Inj 750 MG in Sodium Chlor 0.9% Inj 250 ML IV.SIG SCH (15:29)
--- NOTE | 2018-09-21 17:41 | CT ---
EXAM DATE: 09/21/2018 5:33 PM EDT AGE/SEX: 52 years / Female INDICATIONS: Elevated D dimer. Back pain. CLINICAL DATA: This is the patient's initial encounter. Patient reports that signs and symptoms have been present for 1 day and indicates a pain score of 7/10. MEDICAL/SURGICAL HISTORY: Transient ischemic attack. Pulmonary emboli, bowel obstruction. . Left h ip surgery, stent. RADIATION DOSE: 14.31 CTDI (mGy) COMPARISON: . TECHNIQUE: Volumetric scanning was performed using a multi-row detector CT scanner during bolus infu abhay of 75 ml Omnipaque 350 (iohexol) nonionic water-soluble contrast as a cumulative dose for multi ple exams. The data was post processed with a variety of visualization algorithms including full volu me maximum intensity projection and sliding thin slab reformation. Using automated exposure control a nd adjustment of the mA and/or kV according to patient size, radiation dose was kept as low as reason ably achievable to obtain optimal diagnostic quality images. DICOM format image data is available el ectronically for review and comparison. FINDINGS: Pulmonary Arteries: No filling defects are seen in the pulmonary arteries out to the subsegmental ve ssels. The left and right pulmonary arteries are normal in diameter. Lung: No infiltrates seen. Effusion: None. Mediastinum: No evidence of mediastinal or hilar adenopathy. Other: The axilla is unremarkable. There are numerous surgical chandan and IVC filter in the upper a bdomen. There is air within the biliary tree in the liver I suspect related previous surgery or inter vention. Chronic compression fracture of T10. CONCLUSION: 1. No evidence of pulmonary embolism. Lungs are grossly clear. No concerning infiltrate or mass. No substantial pleural effusion. 2. There is a 6 mm pulmonary nodule in the right upper lobe (image 36). There is a 6 mm pulmonary no dule along the major fissure on the right (image 65). 3 mm pulmonary nodule in the left upper lobe on image 39. Follow-up noncontrast chest CT in 6 months is recommended. Electronically signed by: Antoine Cardona MD 09/21/2018 5:39 PM EDT
--- NOTE | 2018-09-21 17:51 | CT ---
EXAM DATE: 09/21/2018 5:41 PM EDT AGE/SEX: 52 years / Female INDICATIONS: Abdominal pain. CLINICAL DATA: This is the patient's initial encounter. Patient reports that signs and symptoms have been present for 1 day and indicates a pain score of 6/10. MEDICAL/SURGICAL HISTORY: Transient ischemic attack. Pulmonary emboli, bowel obstruction. . Le ft hip surgery, stent. ORAL CONTRAST: Prescribed oral contrast ingested. RADIATION DOSE: 8.11 CTDI (mGy) COMPARISON: [facility] [place] & PELVIS W CONTRAST, 09/20/2018. . TECHNIQUE: Multiple contiguous axial images were obtained through the abdomen and pelvis following b olus infusion of 75 ml Omnipaque 350 (iohexol) nonionic water-soluble contrast as a cumulative dose for multiple exams. Prescribed oral contrast ingested. Using automated exposure control and adjustm ent of the mA and/or kV according to patient size, radiation dose was kept as low as reasonably achie vable to obtain optimal diagnostic quality images. DICOM format image data is available electronical ly for review and comparison. FINDINGS: Lower Lungs: The visualized lower lungs are clear. Liver: There are some air within the liver I suspect in the biliary tree related to previous surgery. There are numerous surgical clips in the josé hepatis. There is no fluid around the liver. Spleen: Surgically absent. Pancreas: Unremarkable without mass or calcification. No obvious ductal dilatation. Kidneys: Normal in size and shape. No evidence of mass or hydronephrosis. Adrenal Glands: Unremarkable. Aorta: The aorta and proximal iliac vessels are grossly unremarkable without aneurysmal dilation. Bowel/Mesentery: There is a prominent area of inflammation in the left anterior pelvis. This retract ion with some small bowel (image 62). There is contrast now surrounding the dense calcifications seen on the previous days film. There is also significant contrast throughout the colon. Surgical clips left upper abdomen Abdominal Wall: Diffuse edema throughout the subcutaneous fat. No drainable fluid collections are id entified. Retroperitoneum: No evidence of adenopathy in the retrocrural, para-aortic, or deep pelvic regions. IVC filter in place. Bladder: Contours are smooth. Reproductive Organs: No abnormal masses or calcifications seen. Inguinal: The inguinal region is unremarkable without evidence of adenopathy. Bony Structures: Patient is a left hip arthroplasty. CONCLUSION: 1. The left anterior pelvis there is a area of distortion with some small bowel thickening. There is a large calcification that is actually slightly smaller today but most of the midline that was noted on the last study. There is a small locule of air (series 606 image 35) which is mildly concerning f or air within the mesentery. There certainly is some soft tissue thickening around that region. There is also dense contrast throughout the colon. Patient is not obstructed. There are some loops of smal l bowel that are distended but not dilated. Electronically signed by: Antoine Cardona MD 09/21/2018 5:49 PM EDT
[2018-09-21] MEDS ORDERED: HYDROmorphone PF Inj 2 MG/ML Vial IV.PUSH ONE (20:45)
[2018-09-22] MEDS: Vancomycin Inj 750 MG in Sodium Chlor 0.9% Inj 250 ML IV.SIG SCH ×2 (03:40→14:54)
[2018-09-22] MEDS: oxyCODONE/Acetaminophen 10/325 Tablet PO PRN ×5 (05:21→23:56)
[2018-09-22] MEDS: Levothyroxine 50 MCG Tablet PO SCH (05:21)
[2018-09-22 06:59] LABS: Baso # (Auto) 0.1 th/mm3 (0.0-0.2); Baso % (Auto) 1.5 % (0.0-2.0); Eos # (Auto) 0.7 th/mm3 (0.0-0.4); Eos % (Auto) 7.9 % (0.0-4.0); Hematocrit 33.6 % (35.0-46.0); Hemoglobin 11.3 gm/dL (11.6-15.3); Lymph # (Auto) 0.8 th/mm3 (1.0-4.8); Lymph % (Auto) 8.3 % (9.0-44.0); Mean Corpuscular HGB Conc 33.8 % (32.0-36.0); Mean Corpuscular Hemoglobin 32.2 pg (27.0-34.0); Mean Corpuscular Volume 95.3 fL (80.0-100.0); Mean Platelet Volume 9.3 fL (7.0-11.0); Mono # (Auto) 0.9 th/mm3 (0.0-0.9); Mono % (Auto) 9.2 % (0.0-8.0); Neut # (Auto) 6.8 th/mm3 (1.8-7.7); Neut % (Auto) 73.1 % (16.0-70.0); Platelet Count 386 th/mm3 (150-450); Red Blood Count 3.52 mil/mm3 (4.00-5.30); Red Cell Distribution Width 16.3 % (11.6-17.2); White Blood Count 9.3 th/mm3 (4.0-11.0)
[2018-09-22 07:33] LABS: Alanine Aminotransferase 16 U/L (10-53); Albumin 2.3 g/dL (3.4-5.0); Anion Gap 9 meq/L (5-15); Aspartate Aminotransferase 14 U/L (15-37); Blood Urea Nitrogen 11 mg/dL (7-18); Calcium 7.8 mg/dL (8.5-10.1); Carbon Dioxide 28.1 meq/L (21.0-32.0); Chloride 105 meq/L (98-107); Glomerular Filtration Rate Greater Than 89 mL/min (>89); Glucose,Random 80 mg/dL (74-106); Sodium 142 meq/L (136-145)
[2018-09-22 07:40] LABS: Alkaline Phosphatase 149 U/L (45-117); Total Protein 6.7 g/dL (6.4-8.2)
[2018-09-22 07:43] LABS: Potassium 2.8 meq/L (3.5-5.1)
[2018-09-22] MEDS ORDERED: Mag Sulf 1 gm/100 ml Premix 100 ML IV.SIG ONE (08:00)
[2018-09-22] MEDS: Amitriptyline 100 MG Tablet PO SCH (09:57)
[2018-09-22] MEDS: Senna/Docusate Sodium 8.6/50 MG Tablet PO SCH ×2 (09:58→21:12)
[2018-09-22] MEDS: Metoprolol Tartrate 25 MG Tablet PO SCH ×2 (09:58→21:12)
--- NOTE | 2018-09-22 10:03 | P.PNGS ---
Subjective Interval history: C/o pain throughout abdomen and in left thigh. Physical Exam Vital signs: Vital Signs 09/21/18 11:55 09/21/18 16:00 09/21/18 20:00 Temperature 98.3 F 98.2 F 98.7 F Pulse Rate 106 H 104 H 110 H Respiratory Rate 18 18 20 Blood Pressure 108/67 118/77 113/71 Pulse Oximetry 96 97 97 09/22/18 00:00 09/22/18 02:42 09/22/18 03:51 Temperature 98.7 F 99.0 F Pulse Rate 79 84 86 Respiratory Rate 16 16 Blood Pressure 109/60 122/64 Pulse Oximetry 97 97 09/22/18 07:20 Temperature 98.6 F Pulse Rate 103 H Respiratory Rate 20 Blood Pressure 98/71 L Pulse Oximetry 95 Intake & Output 09/21/18 09/22/18 09/22/18 18:59 06:59 18:59 Intake Total 1957.5 / 1957.5 357.5 / 357.5 Output Total 950 / 950 Balance 1007.5 / 1007.5 357.5 / 357.5 Intake: IV 1457.5 / 1457.5 357.5 / 357.5 Maxipime Inj 2,000 MG In NS Inj 200 / 200 100 / 100 100 ML @ 200 mls/hr IV.SIG Q8H [facility] Rx#:[id number] Vancomycin Inj 750 MG In NS Inj 257.5 / 257.5 257.5 / 257.5 250 ML @ 250 mls/hr IV.SIG Q12H [facility] Rx#:[id number] Oral 500 / 500 Output: Urine 950 / 950 Other: # Voids 3 Narrative: NAD Abd: bandage in place. Moderate diffuse ttp. LLE no erythema or obvious edema Results - Labs 09/22/18 05:47 09/22/18 05:47 Laboratory Results - last 24 hr 09/21/18 09/21/18 09/21/18 10:53 11:37 18:08 WBC RBC Hgb Hct MCV MCH MCHC RDW Plt Count MPV Neut % (Auto) Lymph % (Auto) [place] % (Auto) Eos % (Auto) Baso % (Auto) Neut # (Auto) Lymph # (Auto) [place] # (Auto) Eos # (Auto) Baso # (Auto) WBC Differential Differential Comment Sodium Potassium Chloride Carbon Dioxide Anion Gap BUN Creatinine Estimated GFR POC Glucose 102 94 Random Glucose Calcium Magnesium Total Bilirubin AST ALT Alkaline Phosphatase Troponin I Less than 0.02 L Total Protein Albumin 09/22/18 09/22/18 09/22/18 00:50 05:27 05:47 WBC 9.3 RBC 3.52 L Hgb 11.3 L Hct 33.6 L MCV 95.3 MCH 32.2 MCHC 33.8 RDW 16.3 Plt Count 386 MPV 9.3 Neut % (Auto) 73.1 H Lymph % (Auto) 8.3 L [place] % (Auto) 9.2 H Eos % (Auto) 7.9 H Baso % (Auto) 1.5 Neut # (Auto) 6.8 Lymph # (Auto) 0.8 L [place] # (Auto) 0.9 Eos # (Auto) 0.7 H Baso # (Auto) 0.1 WBC Differential . Differential Comment Auto diff final Sodium Potassium Chloride Carbon Dioxide Anion Gap BUN Creatinine Estimated GFR POC Glucose 88 80 Random Glucose Calcium Magnesium Total Bilirubin AST ALT Alkaline Phosphatase Troponin I Total Protein Albumin 09/22/18 09/22/18 09/22/18 05:47 05:47 08:38 WBC RBC Hgb Hct MCV MCH MCHC RDW Plt Count MPV Neut % (Auto) Lymph % (Auto) [place] % (Auto) Eos % (Auto) Baso % (Auto) Neut # (Auto) Lymph # (Auto) [place] # (Auto) Eos # (Auto) Baso # (Auto) WBC Differential Differential Comment Sodium 142 Potassium 2.8 L* Chloride 105 Carbon Dioxide 28.1 Anion Gap 9 BUN 11 Creatinine 0.50 Estimated GFR Greater than 89 POC Glucose 84 Random Glucose 80 Calcium 7.8 L Magnesium 2.1 Total Bilirubin 0.3 AST 14 L ALT 16 Alkaline Phosphatase 149 H Troponin I Total Protein 6.7 D Albumin 2.3 L - Imaging Imaging: ITS Impressions Chest X-Ray 09/20/18 15:31 CONCLUSION: Cardiomegaly with probable mild interstitial edema. Abdomen/Pelvis CT 09/21/18 00:00 CONCLUSION: 1. The left anterior pelvis there is a area of distortion with some small bowel thickening. There is a large calcification that is actually slightly smaller today but most of the midline that was noted on the last study. There is a small locule of air (series 606 image 35) which is mildly concerning for air within the mesentery. There certainly is some soft tissue thickening around that region. There is also dense contrast throughout the colon. Patient is not obstructed. There are some loops of small bowel that are distended but not dilated. Chest CTA 09/21/18 00:00 CONCLUSION: 1. No evidence of pulmonary embolism. Lungs are grossly clear. No concerning infiltrate or mass. No substantial pleural effusion. 2. There is a 6 mm pulmonary nodule in the right upper lobe (image 36). There is a 6 mm pulmonary nodule along the major fissure on the right (image 65). 3 mm pulmonary nodule in the left upper lobe on image 39. Follow-up noncontrast chest CT in 6 months is recommended. Assessment and Plan - Assessment (1) Open abdominal wall wound Code(s): S31.109A - Unspecified open wound of abdominal wall, unspecified quadrant without penetration into peritoneal cavity, initial encounter Status : Acute (2) History of splenectomy Code(s): Z90.81 - Acquired absence of spleen Status: Acute (3) History of gastric bypass Code(s): Z98.84 - Bariatric surgery status Status: Acute (4) Abdominal pain Code(s): R10.9 - Unspecified abdominal pain Status: Acute - Plan Abdominal painextremely extensive surgical history primarily associated with complications of previous Chivo-en-Y gastric bypass. I spoke with her surgeon who she is still following with Dr. Mackenzie in [place]. He initially saw her for perforated jejunojejunostomy where he performed extensive lysis of adhesions and repair. She developed enterocutaneous fistula in about 6 months ago she underwent an enterocutaneous fistula takedown. She had a wound VAC on the large abdominal wound until about 2 weeks ago where it was removed at his office. She has been on chronic narcotics until about 2 weeks ago when he stopped her narcotics. She had recently also seen a pain management physician but she was not given a prescription for narcotics. CT abdomen and pelvis repeated with oral contrast was reviewed by me as well as in person discussed with Dr. Navarro of radiology. There is evidence of complicated and extensive multiple prior surgeries. In the lower abdomen there is an area of some bowel wall thickening possible fistulous tracts between bowel loops. There does not appear to be any acute perforation. I have placed her on Flagyl to see if this inflammation could be improved. Will consult gastroenterology to consider upper endoscopy to be sure she does not have complications such as gastric jejunal marginal ulcer. I do think there could be a component of drug-seeking here due to chronic narcotic dependence with recent cessation of narcotics. History of DVT PE complaint of left thigh pain and concern for DVTwill order left lower extremity venous Doppler. The patient does not require any acute surgical intervention. She does not have a current enterocutaneous fistula.. I am going to follow peripherally. She requires continued wound care and she needs to follow-up closely with her surgeon.
--- NOTE | 2018-09-22 10:43 | US ---
EXAM DATE: 09/22/2018 10:35 AM EDT AGE/SEX: 52 years / Female INDICATIONS: Left leg pain. CLINICAL DATA: This is the patient's initial encounter. Patient reports that signs and symptoms have been present for 1 day and indicates a pain score of 4/10. MEDICAL/SURGICAL HISTORY: Hypothyroidism. Bowel obstruction. Pulmonary embolism. Transient isch emic attack. . Abdominal surgery. COMPARISON: No prior exams available for comparison. TECHNIQUE: Venous ultrasound of both lower extremities was performed from the inguinal ligament to t he proximal calf. Real-time, color Doppler and spectral tracing, compression and augmentation techni ques were used. FINDINGS: Normal compression of the deep venous system from the inguinal region to the proximal calf . No echogenic clot is seen. Normal response of the venous system to augmentation and respiration. CONCLUSION: No venous thrombosis is identified within the left lower extremity. Electronically signed by: Avinash Bass MD 09/22/2018 10:42 AM EDT
[2018-09-22] MEDS: Potassium Chlor 20 mEq Premix 20 MEQ/100 ML PIGGYBACK IV.SIG SCH ×2 (11:02→13:30)
[2018-09-22] MEDS: Sod Chloride 0.9% Inj 1,000 ML IV.CONT SCH ×2 (11:03→19:48)
--- NOTE | 2018-09-22 11:52 | P.PNIM ---
Subjective Interval history: Chief Complaint: Abdominal and back pain History of Present Illness: The patient is a 52-year-old female with past medical history of bowel obstruction and fistula formation who is presenting to the hospital with severe back and abdominal pain. She says yesterday she developed upper back pain. She says she noticed it when she was trying to ambulate. She associated weakness with it. She says the upper back pain is a 10 out of 10 in severity and has no radiation. She describes it as a squeezing type of ache. She denies any shortness of breath or chest pain. She does endorse palpitations. The patient says she also developed abdominal pain about 2 weeks ago. She says in July she had abdominal surgery which led to fistula formation. She says over the past couple of weeks she developed generalized severe abdominal pain. She is able to tolerate a diet. She has not been nauseous. She has been having normal bowel movements. She says she follows up with a surgeon at an outside hospital but has not seen the surgeon since she started to have the abdominal pain. She says she has an abdominal wound which has been bandaged. She follows up with her surgeon for that. She denies any drainage from the wound. 11-2 SEEN BY SURGERY AND MY [employer]LE[employer]UE HAD CAT SCANS GI WILL BE CONSULTED LEFT LE SHOWS NO DVT SEEN BY A SURGEON AT [facility] AM LABS HYPOKALEMIA WILL REPLACE WITH IV DUE TO ?ABSORPTION AM LABS Physical Exam Vital signs: Vital Signs 09/21/18 11:55 09/21/18 16:00 09/21/18 20:00 Temperature 98.3 F 98.2 F 98.7 F Pulse Rate 106 H 104 H 110 H Respiratory Rate 18 18 20 Blood Pressure 108/67 118/77 113/71 Pulse Oximetry 96 97 97 09/22/18 00:00 09/22/18 02:42 09/22/18 03:51 Temperature 98.7 F 99.0 F Pulse Rate 79 84 86 Respiratory Rate 16 16 Blood Pressure 109/60 122/64 Pulse Oximetry 97 97 09/22/18 07:20 09/22/18 11:11 Temperature 98.6 F 98.5 F Pulse Rate 103 H 105 H Respiratory Rate 20 16 Blood Pressure 98/71 L 106/61 Pulse Oximetry 95 95 Intake & Output 09/21/18 09/22/18 09/22/18 18:59 06:59 18:59 Intake Total 1957.5 / 1957.5 357.5 / 357.5 100 / 100 Output Total 950 / 950 Balance 1007.5 / 1007.5 357.5 / 357.5 100 / 100 Intake: IV 1457.5 / 1457.5 357.5 / 357.5 100 / 100 Maxipime Inj 2,000 MG In NS Inj 200 / 200 100 / 100 100 ML @ 200 mls/hr IV.SIG Q8H [facility] Rx#:[id number] Magnesium Sulfate 1 gm/D5W 100 100 / 100 ml Premix 100 ML @ 100 mls/hr IV.SIG ONCE ONE Rx#:[id number] Vancomycin Inj 750 MG In NS Inj 257.5 / 257.5 257.5 / 257.5 250 ML @ 250 mls/hr IV.SIG Q12H [facility] Rx#:[id number] Oral 500 / 500 Output: Urine 950 / 950 Other: # Voids 3 Narrative: GENERAL: No distress. SKIN: Focused skin assessment warm/dry. HEAD: Atraumatic. Normocephalic. EYES: Pupils equal and round. No scleral icterus. No injection or drainage. ENT: No nasal bleeding or discharge. Mucous membranes pink and moist. NECK: Trachea midline. No JVD. CARDIOVASCULAR: Tachycardic. No murmur appreciated. RESPIRATORY: No accessory muscle use. Clear to auscultation. Breath sounds equal bilaterally. GASTROINTESTINAL: Abdomen soft. Mild diffuse tenderness. No rebound or guarding. There is an abdominal wound in the middle. Wound is about 3 x 3 cm with purulent drainage. CURRENTLY DRESSED MUSCULOSKELETAL: No obvious deformities. No clubbing. No cyanosis. No edema. NEUROLOGICAL: Awake and alert. No obvious cranial nerve deficits. Motor grossly within normal limits. Normal speech. PSYCHIATRIC: Appropriate mood and affect; insight and judgment normal. Results - Labs CBC & Chem 7: 09/22/18 05:47 09/22/18 05:47 Laboratory Results - last 24 hr 09/21/18 09/21/18 09/21/18 00:41 10:53 11:37 WBC RBC Hgb Hct MCV MCH MCHC RDW Plt Count MPV Neut % (Auto) Lymph % (Auto) [place] % (Auto) Eos % (Auto) Baso % (Auto) Neut # (Auto) Lymph # (Auto) [place] # (Auto) Eos # (Auto) Baso # (Auto) WBC Differential Differential Comment Sodium Potassium Chloride Carbon Dioxide Anion Gap BUN Creatinine Estimated GFR POC Glucose 102 Random Glucose Calcium Magnesium Total Bilirubin AST ALT Alkaline Phosphatase Troponin I Less than 0.02 L Total Protein Albumin Urine Color Light-yellow Urine Clarity Slightly cloudy Urine pH 6.5 Ur Specific [place] 1.019 Urine Protein Negative Urine Glucose (UA) Negative Urine Ketones 15 H Urine Occult Blood Negative Urine Nitrate Negative Urine Bilirubin Negative Urine Urobilinogen 0.2 Ur Leukocyte Esterase Small H Urine WBC 21-50 H Urine WBC Clumps Few H Ur Squamous Epith Cells 0-5 Urine Bacteria Few H Micro UA Comment Culture indicated Urine Culture Comments Culture indicated 09/21/18 09/22/18 09/22/18 18:08 00:50 05:27 WBC RBC Hgb Hct MCV MCH MCHC RDW Plt Count MPV Neut % (Auto) Lymph % (Auto) [place] % (Auto) Eos % (Auto) Baso % (Auto) Neut # (Auto) Lymph # (Auto) [place] # (Auto) Eos # (Auto) Baso # (Auto) WBC Differential Differential Comment Sodium Potassium Chloride Carbon Dioxide Anion Gap BUN Creatinine Estimated GFR POC Glucose 94 88 80 Random Glucose Calcium Magnesium Total Bilirubin AST ALT Alkaline Phosphatase Troponin I Total Protein Albumin Urine Color Urine Clarity Urine pH Ur Specific [place] Urine Protein Urine Glucose (UA) Urine Ketones Urine Occult Blood Urine Nitrate Urine Bilirubin Urine Urobilinogen Ur Leukocyte Esterase Urine WBC Urine WBC Clumps Ur Squamous Epith Cells Urine Bacteria Micro UA Comment Urine Culture Comments 09/22/18 09/22/18 09/22/18 05:47 05:47 05:47 WBC 9.3 RBC 3.52 L Hgb 11.3 L Hct 33.6 L MCV 95.3 MCH 32.2 MCHC 33.8 RDW 16.3 Plt Count 386 MPV 9.3 Neut % (Auto) 73.1 H Lymph % (Auto) 8.3 L [place] % (Auto) 9.2 H Eos % (Auto) 7.9 H Baso % (Auto) 1.5 Neut # (Auto) 6.8 Lymph # (Auto) 0.8 L [place] # (Auto) 0.9 Eos # (Auto) 0.7 H Baso # (Auto) 0.1 WBC Differential . Differential Comment Auto diff final Sodium 142 Potassium 2.8 L* Chloride 105 Carbon Dioxide 28.1 Anion Gap 9 BUN 11 Creatinine 0.50 Estimated GFR Greater than 89 POC Glucose Random Glucose 80 Calcium 7.8 L Magnesium 2.1 Total Bilirubin 0.3 AST 14 L ALT 16 Alkaline Phosphatase 149 H Troponin I Total Protein 6.7 D Albumin 2.3 L Urine Color Urine Clarity Urine pH Ur Specific [place] Urine Protein Urine Glucose (UA) Urine Ketones Urine Occult Blood Urine Nitrate Urine Bilirubin Urine Urobilinogen Ur Leukocyte Esterase Urine WBC Urine WBC Clumps Ur Squamous Epith Cells Urine Bacteria Micro UA Comment Urine Culture Comments 09/22/18 08:38 WBC RBC Hgb Hct MCV MCH MCHC RDW Plt Count MPV Neut % (Auto) Lymph % (Auto) [place] % (Auto) Eos % (Auto) Baso % (Auto) Neut # (Auto) Lymph # (Auto) [place] # (Auto) Eos # (Auto) Baso # (Auto) WBC Differential Differential Comment Sodium Potassium Chloride Carbon Dioxide Anion Gap BUN Creatinine Estimated GFR POC Glucose 84 Random Glucose Calcium Magnesium Total Bilirubin AST ALT Alkaline Phosphatase Troponin I Total Protein Albumin Urine Color Urine Clarity Urine pH Ur Specific [place] Urine Protein Urine Glucose (UA) Urine Ketones Urine Occult Blood Urine Nitrate Urine Bilirubin Urine Urobilinogen Ur Leukocyte Esterase Urine WBC Urine WBC Clumps Ur Squamous Epith Cells Urine Bacteria Micro UA Comment Urine Culture Comments Microbiology 09/21/18 00:41 Clean Catch Urine Urine Culture - Preliminary Group D Enterococcus 09/20/18 21:05 Blood - Peripheral Aerobic Blood Culture - Preliminary No growth in 2 days 09/20/18 21:05 Blood - Peripheral Anaerobic Blood Culture - Preliminary No growth in 2 days 09/20/18 20:50 Blood - Peripheral Aerobic Blood Culture - Preliminary No growth in 2 days 09/20/18 20:50 Blood - Peripheral Anaerobic Blood Culture - Preliminary No growth in 2 days 09/20/18 16:00 Wound - Abdominal Gram Stain - Final 09/20/18 16:00 Wound - Abdominal Wound Culture - Preliminary Staphylococcus aureus - Imaging Impressions Abdomen/Pelvis CT 09/21/18 00:00 CONCLUSION: 1. The left anterior pelvis there is a area of distortion with some small bowel thickening. There is a large calcification that is actually slightly smaller today but most of the midline that was noted on the last study. There is a small locule of air (series 606 image 35) which is mildly concerning for air within the mesentery. There certainly is some soft tissue thickening around that region. There is also dense contrast throughout the colon. Patient is not obstructed. There are some loops of small bowel that are distended but not dilated. Chest CTA 09/21/18 00:00 CONCLUSION: 1. No evidence of pulmonary embolism. Lungs are grossly clear. No concerning infiltrate or mass. No substantial pleural effusion. 2. There is a 6 mm pulmonary nodule in the right upper lobe (image 36). There is a 6 mm pulmonary nodule along the major fissure on the right (image 65). 3 mm pulmonary nodule in the left upper lobe on image 39. Follow-up noncontrast chest CT in 6 months is recommended. Venous Doppler Study 09/22/18 00:00 CONCLUSION: No venous thrombosis is identified within the left lower extremity. Assessment and Plan - Plan Mrs. Morrison is a 52-year-old female admitted secondary to abdominal pain related to fistula Abdominal fistula Abdominal pain General surgery following Continue wound care Continue Comycin Continue cefepime Continue IV hydration Continue pain control Chronic back pain Continue pain management Follow clinically D-dimer is positive CTA of chest ordered Renal insufficiency IV hydration Continue monitoring renal function Avoid nephrotoxins Tachycardia May be related to pain Continue Lopressor Continue on telemetry HYPOKALEMIA- REPLACE WITH IV MEDS DVT prophylaxis SCDs Lovenox AM LABS Code Status: FULL CODE Discussed Condition With: RN AND PT AND CM Discharge Planning: CONSULTED GI BY SURGERY AND US OF LEFT LE WAS NEGATIVE AM LABS
--- NOTE | 2018-09-22 13:25 | P.CONGI ---
History of Present Illness Consult date: 09/22/18 Consult reason: History of gastric bypass Abdominal pain Chief complaint: Abdominal pain, Tachycardia History of Present Illness: This patient is a 52-year-old female with a past medical history of small bowel obstruction with resection and fistula formation. Patient presented to the emergency room at [facility] on 09/20/2018 with complaint of back and abdominal pain. Patient endorses that she had small bowel resection done in July 2018. This surgery led to a formation of a fistula. She had a wound vacuum but surgeon removed the same and abdominal wound is now covered with bandage. Upon consultation patient endorses gastric bypass surgery in 2002. She states that she has been experiencing epigastric pain with generalized weakness for 1 week. She endorses nausea but denies any associated vomiting. Patient describes her epigastric pain is burning and aching. She denies any aggravating or alleviating factors. States she takes pantoprazole twice daily and has been doing so for 6 months. She reports EGD done in 2016 at a hospital in [place] where she needed dilation of stricture. Patient states she has been having the sensation of food getting stuck in her throat(solid food and medications) for a few months. She reports multiple EGDs in the past done for esophageal strictures. Patient denies odynophagia or unintended weight loss. Patient reports last colonoscopy done estimated 10 years ago and to her recollection the findings were normal. Patient states she has normal soft brown bowel movements daily and denies any constipation or diarrhea. Patient denies any noted bleeding. Denies any tobacco use or use of alcohol products. Discussed possible need for EGD with dilation, patient verbalizes understanding and agreement. <Gela Lizarraga - Last Filed: 09/22/18 13:13> Review of Systems All other systems reviewed negative except as stated in HPI <Gela Lizarraga - Last Filed: 09/22/18 13:13> PMFSH - History History Provided By: Patient - Medical History Medical History: Medical History (Last Reviewed 09/21/18 @ 07:47 by Jael Brito) Bowel obstruction Hypothyroidism Pulmonary embolism TIA (transient ischemic attack) - Surgical History Surgical History: Surgical History (Last Reviewed 09/21/18 @ 07:47 by Jael Brito) H/O abdominal surgery - Family History Family History: Family History (Last Updated 09/20/18 @ 15:37 by Blaine Freeman DO) Other No pertinent family history - Tobacco History Second Hand Smoke Exposure: No Tobacco Use In Past 30 Days: No Smoking Status: Never smoker - Alcohol History How Often Do You Have a Drink Containing Alcohol: Never - Substance Use History Substance History: No History of Abuse - Travel History Recent Travel in the [place] Within the Last 8 Weeks: No Recent Travel Out of the Country Within the Last 8 Weeks: No - Immunization History Tetanus Immunization: Unsure <Gela Lizarraga - Last Filed: 09/22/18 13:13> - Medical History Medical History: Medical History (Last Reviewed 09/21/18 @ 07:47 by Jael Brito) Bowel obstruction Hypothyroidism Pulmonary embolism TIA (transient ischemic attack) - Surgical History Surgical History: Surgical History (Last Reviewed 09/21/18 @ 07:47 by Jael Brito) H/O abdominal surgery - Family History Family History: Family History (Last Updated 09/20/18 @ 15:37 by Blaine Freeman DO) Other No pertinent family history <Yony Garcia - Last Filed: 09/22/18 18:46> Medications and Allergies Active Medications: Active Medications Acetaminophen (Tylenol) 650 mg PO Q4H PRN PRN Reason: Temp > 100.4, pain 1-2 Amitriptyline HCl (Elavil) 200 mg PO DAILY [facility] Last Admin: 09/22/18 09:57 Dose: 200 mg Baclofen (Lioresal) 20 mg PO TID [facility] Last Admin: 09/22/18 09:57 Dose: 20 mg Collagenase (Santyl Oint) 1 applicatio TOPICAL DAILY [facility] Last Admin: 09/21/18 15:08 Dose: 1 applicatio Enoxaparin Sodium (Lovenox Inj) 30 mg SQ Q24H [facility] Last Admin: 09/21/18 15:08 Dose: 30 mg Cefepime HCl 2,000 mg/ Sodium (Chloride) 100 mls @ 200 mls/hr IV.SIG Q8H [facility] Last Infusion: 09/22/18 12:56 Dose: Infused Vancomycin HCl 750 mg/ Sodium (Chloride) 257.5 mls @ 250 mls/hr IV.SIG Q12H [facility] Last Infusion: 09/22/18 06:31 Dose: Infused Potassium Chloride (Kcl 10 Meq Premix Inj) 10 meq in 100 mls @ 100 mls/hr IV.SIG Q1H [facility] Stop: 09/22/18 15:59 Sodium Chloride (Ns Inj) 1,000 mls @ 100 mls/hr IV.CONT .Q10H [facility] Last Admin: 09/22/18 11:03 Dose: 100 mls/hr Levothyroxine Sodium (Synthroid) 50 mcg PO DAILY@0600 [facility] Last Admin: 09/22/18 05:21 Dose: 50 mcg Metoprolol Tartrate (Lopressor) 25 mg PO BID [facility] Last Admin: 09/22/18 09:58 Dose: 25 mg Metronidazole (Flagyl) 500 mg PO Q8HR [facility] Miscellaneous Information ([facility] Ordered Lab Info) 0 each OTHER ONCE ONE Stop: 09/23/18 02:46 Ondansetron HCl (Zofran Inj) 4 mg IV.PUSH Q6H PRN PRN Reason: NAUSEA OR VOMITING Last Admin: 09/22/18 10:05 Dose: 4 mg Oxycodone/Acetaminophen (Percocet 5/325 Mg) 1 tab PO Q4H PRN PRN Reason: Pain 3 to 6 Oxycodone/Acetaminophen (Percocet 10/325 Mg) 1 tab PO Q4H PRN PRN Reason: Pain 7 to 10 Last Admin: 09/22/18 09:15 Dose: 1 tab Pharmacy Profile Note (Vancomycin Consult Pharmacy) 1 each OTHER UNSCH PRN PRN Reason: Pharmacy to dose Senna/Docusate Sodium (Lin-Colace) 1 tab PO BID [facility] Last Admin: 09/22/18 09:58 Dose: 1 tab Sodium Chloride (Ns Flush) 2 ml IV.FLUSH PRN PRN PRN Reason: FLUSH AFTER USING IV ACCESS <Gela Lizarraga - Last Filed: 09/22/18 13:13> Active Medications: Active Medications Acetaminophen (Tylenol) 650 mg PO Q4H PRN PRN Reason: Temp > 100.4, pain 1-2 Amitriptyline HCl (Elavil) 200 mg PO DAILY [facility] Last Admin: 09/22/18 09:57 Dose: 200 mg Baclofen (Lioresal) 20 mg PO TID [facility] Last Admin: 09/22/18 13:52 Dose: 20 mg Collagenase (Santyl Oint) 1 applicatio TOPICAL DAILY [facility] Last Admin: 09/22/18 13:32 Dose: 1 applicatio Enoxaparin Sodium (Lovenox Inj) 30 mg SQ Q24H [facility] Last Admin: 09/21/18 15:08 Dose: 30 mg Cefepime HCl 2,000 mg/ Sodium (Chloride) 100 mls @ 200 mls/hr IV.SIG Q8H [facility] Last Infusion: 09/22/18 16:56 Dose: Infused Vancomycin HCl 750 mg/ Sodium (Chloride) 257.5 mls @ 250 mls/hr IV.SIG Q12H [facility] Last Infusion: 09/22/18 16:56 Dose: Infused Sodium Chloride (Ns Inj) 1,000 mls @ 100 mls/hr IV.CONT .Q10H [facility] Last Admin: 09/22/18 11:03 Dose: 100 mls/hr Potassium Chloride (Kcl 10 Meq Premix Inj) 10 meq in 100 mls @ 100 mls/hr IV.SIG Q1H [facility] Stop: 09/22/18 18:59 Last Infusion: 09/22/18 18:22 Dose: Infused Levothyroxine Sodium (Synthroid) 50 mcg PO DAILY@0600 [facility] Last Admin: 09/22/18 05:21 Dose: 50 mcg Metoprolol Tartrate (Lopressor) 25 mg PO BID [facility] Last Admin: 09/22/18 09:58 Dose: 25 mg Metronidazole (Flagyl) 500 mg PO Q8HR [facility] Last Admin: 09/22/18 13:52 Dose: 500 mg Miscellaneous Information ([facility] Ordered Lab Info) 0 each OTHER ONCE ONE Stop: 09/23/18 02:46 Ondansetron HCl (Zofran Inj) 4 mg IV.PUSH Q6H PRN PRN Reason: NAUSEA OR VOMITING Last Admin: 09/22/18 10:05 Dose: 4 mg Oxycodone/Acetaminophen (Percocet 5/325 Mg) 1 tab PO Q4H PRN PRN Reason: Pain 3 to 6 Oxycodone/Acetaminophen (Percocet 10/325 Mg) 1 tab PO Q4H PRN PRN Reason: Pain 7 to 10 Last Admin: 09/22/18 15:04 Dose: 1 tab Pantoprazole Sodium (Protonix) 40 mg PO BID [facility] Pharmacy Profile Note (Vancomycin Consult Pharmacy) 1 each OTHER UNSCH PRN PRN Reason: Pharmacy to dose Senna/Docusate Sodium (Lin-Colace) 1 tab PO BID [facility] Last Admin: 09/22/18 09:58 Dose: 1 tab Sodium Chloride (Ns Flush) 2 ml IV.FLUSH PRN PRN PRN Reason: FLUSH AFTER USING IV ACCESS <JoseYony mcdonnell - Last Filed: 09/22/18 18:46> Allergies Allergy/AdvReac Type Severity Reaction Status Date / Time bee venom protein (honey bee) Allergy Unconscious Verified 09/20/18 08:43 codeine Allergy Itching Verified 09/20/18 08:43 Penicillins Allergy Itching Verified 09/20/18 08:43 Home Medications Medication Instructions Recorded Confirmed Type amitriptyline 200 mg PO DAILY 09/20/18 09/20/18 History baclofen 20 mg PO TID 09/20/18 09/20/18 History levothyroxine 50 mcg PO DAILY 09/20/18 09/20/18 History metoprolol tartrate 25 mg PO BID 09/20/18 09/20/18 History Exam Vital signs: Vital Signs 09/21/18 16:00 09/21/18 20:00 09/22/18 00:00 Temperature 98.2 F 98.7 F 98.7 F Pulse Rate 104 H 110 H 79 Respiratory Rate 18 20 16 Blood Pressure 118/77 113/71 109/60 Pulse Oximetry 97 97 97 09/22/18 02:42 09/22/18 03:51 09/22/18 07:20 Temperature 99.0 F 98.6 F Pulse Rate 84 86 103 H Respiratory Rate 16 20 Blood Pressure 122/64 98/71 L Pulse Oximetry 97 95 09/22/18 11:11 Temperature 98.5 F Pulse Rate 105 H Respiratory Rate 16 Blood Pressure 106/61 Pulse Oximetry 95 Intake & Output 09/21/18 09/22/18 09/22/18 18:59 06:59 18:59 Intake Total 1957.5 / 1957.5 357.5 / 357.5 300 / 300 Output Total 950 / 950 Balance 1007.5 / 1007.5 357.5 / 357.5 300 / 300 Intake: IV 1457.5 / 1457.5 357.5 / 357.5 300 / 300 Maxipime Inj 2,000 MG In NS Inj 200 / 200 100 / 100 100 / 100 100 ML @ 200 mls/hr IV.SIG Q8H [facility] Rx#:[id number] Magnesium Sulfate 1 gm/D5W 100 100 / 100 ml Premix 100 ML @ 100 mls/hr IV.SIG ONCE ONE Rx#:[id number] KCl 20 mEq Premix Inj 20 meq In 100 / 100 100 ml @ 50 mls/hr IV.SIG Q2H [facility] Rx#:[id number] Vancomycin Inj 750 MG In NS Inj 257.5 / 257.5 257.5 / 257.5 250 ML @ 250 mls/hr IV.SIG Q12H [facility] Rx#:[id number] Oral 500 / 500 Output: Urine 950 / 950 Other: # Voids 3 - Constitutional no acute distress - Routine HEENT Exam Head: Present: normocephalic - Routine Neck Exam Present: supple - Routine Respiratory Exam Present: CTA bilaterally. Absent: accessory muscle use - Routine Cardiovascular Exam Present: S1, S2 - Routine Abdominal Exam Present: soft, normoactive bowel sounds, surgical scars, wound. Absent: tenderness, distended, guarding, firm - Routine Extremities Exam Present: full ROM, pulses intact. Absent: edema - Routine Skin Exam Present: dry, warm - Routine Neurological Exam Present: alert, oriented X3 <Lizarraga,Gela - Last Filed: 09/22/18 13:13> Vital signs: Vital Signs 09/21/18 20:00 09/22/18 00:00 09/22/18 02:42 Temperature 98.7 F 98.7 F Pulse Rate 110 H 79 84 Respiratory Rate 20 16 Blood Pressure 113/71 109/60 Pulse Oximetry 97 97 09/22/18 03:51 09/22/18 07:20 09/22/18 08:00 Temperature 99.0 F 98.6 F Pulse Rate 86 103 H 107 H Respiratory Rate 16 20 Blood Pressure 122/64 98/71 L Pulse Oximetry 97 95 09/22/18 11:11 09/22/18 15:00 Temperature 98.5 F 98.5 F Pulse Rate 105 H 102 H Respiratory Rate 16 18 Blood Pressure 106/61 118/61 Pulse Oximetry 95 98 Intake & Output 09/21/18 09/22/18 09/22/18 18:59 06:59 18:59 Intake Total 1957.5 / 1957.5 357.5 / 357.5 757.5 / 757.5 Output Total 950 / 950 Balance 1007.5 / 1007.5 357.5 / 357.5 757.5 / 757.5 Weight 63.1 kg Intake: IV 1457.5 / 1457.5 357.5 / 357.5 757.5 / 757.5 Maxipime Inj 2,000 MG In NS Inj 200 / 200 100 / 100 200 / 200 100 ML @ 200 mls/hr IV.SIG Q8H [facility] Rx#:[id number] Magnesium Sulfate 1 gm/D5W 100 100 / 100 ml Premix 100 ML @ 100 mls/hr IV.SIG ONCE ONE Rx#:[id number] KCl 10 mEq Premix Inj 10 meq In 100 / 100 100 ml @ 100 mls/hr IV.SIG Q1H [facility] Rx#:[id number] KCl 20 mEq Premix Inj 20 meq In 100 / 100 100 ml @ 50 mls/hr IV.SIG Q2H [facility] Rx#:[id number] Vancomycin Inj 750 MG In NS Inj 257.5 / 257.5 257.5 / 257.5 257.5 / 257.5 250 ML @ 250 mls/hr IV.SIG Q12H [facility] Rx#:[id number] Oral 500 / 500 Output: Urine 950 / 950 Other: # Voids 3 <Yony Garcia E - Last Filed: 09/22/18 18:46> Results - Labs CBC & Chem 7: 09/22/18 05:47 09/22/18 05:47 Labs: Laboratory Results - last 24 hr 09/21/18 09/21/18 09/22/18 00:41 18:08 00:50 WBC RBC Hgb Hct MCV MCH MCHC RDW Plt Count MPV Neut % (Auto) Lymph % (Auto) [place] % (Auto) Eos % (Auto) Baso % (Auto) Neut # (Auto) Lymph # (Auto) [place] # (Auto) Eos # (Auto) Baso # (Auto) WBC Differential Differential Comment Sodium Potassium Chloride Carbon Dioxide Anion Gap BUN Creatinine Estimated GFR POC Glucose 94 88 Random Glucose Calcium Magnesium Total Bilirubin AST ALT Alkaline Phosphatase Total Protein Albumin Urine Color Light-yellow Urine Clarity Slightly cloudy Urine pH 6.5 Ur Specific [place] 1.019 Urine Protein Negative Urine Glucose (UA) Negative Urine Ketones 15 H Urine Occult Blood Negative Urine Nitrate Negative Urine Bilirubin Negative Urine Urobilinogen 0.2 Ur Leukocyte Esterase Small H Urine WBC 21-50 H Urine WBC Clumps Few H Ur Squamous Epith Cells 0-5 Urine Bacteria Few H Micro UA Comment Culture indicated Urine Culture Comments Culture indicated 09/22/18 09/22/18 09/22/18 05:27 05:47 05:47 WBC 9.3 RBC 3.52 L Hgb 11.3 L Hct 33.6 L MCV 95.3 MCH 32.2 MCHC 33.8 RDW 16.3 Plt Count 386 MPV 9.3 Neut % (Auto) 73.1 H Lymph % (Auto) 8.3 L [place] % (Auto) 9.2 H Eos % (Auto) 7.9 H Baso % (Auto) 1.5 Neut # (Auto) 6.8 Lymph # (Auto) 0.8 L [place] # (Auto) 0.9 Eos # (Auto) 0.7 H Baso # (Auto) 0.1 WBC Differential . Differential Comment Auto diff final Sodium 142 Potassium 2.8 L* Chloride 105 Carbon Dioxide 28.1 Anion Gap 9 BUN 11 Creatinine 0.50 Estimated GFR Greater than 89 POC Glucose 80 Random Glucose 80 Calcium 7.8 L Magnesium Total Bilirubin 0.3 AST 14 L ALT 16 Alkaline Phosphatase 149 H Total Protein 6.7 D Albumin 2.3 L Urine Color Urine Clarity Urine pH Ur Specific [place] Urine Protein Urine Glucose (UA) Urine Ketones Urine Occult Blood Urine Nitrate Urine Bilirubin Urine Urobilinogen Ur Leukocyte Esterase Urine WBC Urine WBC Clumps Ur Squamous Epith Cells Urine Bacteria Micro UA Comment Urine Culture Comments 09/22/18 09/22/18 05:47 08:38 WBC RBC Hgb Hct MCV MCH MCHC RDW Plt Count MPV Neut % (Auto) Lymph % (Auto) [place] % (Auto) Eos % (Auto) Baso % (Auto) Neut # (Auto) Lymph # (Auto) [place] # (Auto) Eos # (Auto) Baso # (Auto) WBC Differential Differential Comment Sodium Potassium Chloride Carbon Dioxide Anion Gap BUN Creatinine Estimated GFR POC Glucose 84 Random Glucose Calcium Magnesium 2.1 Total Bilirubin AST ALT Alkaline Phosphatase Total Protein Albumin Urine Color Urine Clarity Urine pH Ur Specific [place] Urine Protein Urine Glucose (UA) Urine Ketones Urine Occult Blood Urine Nitrate Urine Bilirubin Urine Urobilinogen Ur Leukocyte Esterase Urine WBC Urine WBC Clumps Ur Squamous Epith Cells Urine Bacteria Micro UA Comment Urine Culture Comments - Imaging Impressions Abdomen/Pelvis CT 09/21/18 00:00 CONCLUSION: 1. The left anterior pelvis there is a area of distortion with some small bowel thickening. There is a large calcification that is actually slightly smaller today but most of the midline that was noted on the last study. There is a small locule of air (series 606 image 35) which is mildly concerning for air within the mesentery. There certainly is some soft tissue thickening around that region. There is also dense contrast throughout the colon. Patient is not obstructed. There are some loops of small bowel that are distended but not dilated. Chest CTA 09/21/18 00:00 CONCLUSION: 1. No evidence of pulmonary embolism. Lungs are grossly clear. No concerning infiltrate or mass. No substantial pleural effusion. 2. There is a 6 mm pulmonary nodule in the right upper lobe (image 36). There is a 6 mm pulmonary nodule along the major fissure on the right (image 65). 3 mm pulmonary nodule in the left upper lobe on image 39. Follow-up noncontrast chest CT in 6 months is recommended. Venous Doppler Study 09/22/18 00:00 CONCLUSION: No venous thrombosis is identified within the left lower extremity. <Gela Lizarraga - Last Filed: 09/22/18 13:13> - Labs CBC & Chem 7: 09/22/18 05:47 09/22/18 05:47 Labs: Laboratory Results - last 24 hr 09/21/18 09/22/18 09/22/18 00:41 00:50 05:27 WBC RBC Hgb Hct MCV MCH MCHC RDW Plt Count MPV Neut % (Auto) Lymph % (Auto) [place] % (Auto) Eos % (Auto) Baso % (Auto) Neut # (Auto) Lymph # (Auto) [place] # (Auto) Eos # (Auto) Baso # (Auto) WBC Differential Differential Comment Sodium Potassium Chloride Carbon Dioxide Anion Gap BUN Creatinine Estimated GFR POC Glucose 88 80 Random Glucose Calcium Magnesium Total Bilirubin AST ALT Alkaline Phosphatase Total Protein Albumin Urine Color Light-yellow Urine Clarity Slightly cloudy Urine pH 6.5 Ur Specific [place] 1.019 Urine Protein Negative Urine Glucose (UA) Negative Urine Ketones 15 H Urine Occult Blood Negative Urine Nitrate Negative Urine Bilirubin Negative Urine Urobilinogen 0.2 Ur Leukocyte Esterase Small H Urine WBC 21-50 H Urine WBC Clumps Few H Ur Squamous Epith Cells 0-5 Urine Bacteria Few H Micro UA Comment Culture indicated Urine Culture Comments Culture indicated 09/22/18 09/22/18 09/22/18 05:47 05:47 05:47 WBC 9.3 RBC 3.52 L Hgb 11.3 L Hct 33.6 L MCV 95.3 MCH 32.2 MCHC 33.8 RDW 16.3 Plt Count 386 MPV 9.3 Neut % (Auto) 73.1 H Lymph % (Auto) 8.3 L [place] % (Auto) 9.2 H Eos % (Auto) 7.9 H Baso % (Auto) 1.5 Neut # (Auto) 6.8 Lymph # (Auto) 0.8 L [place] # (Auto) 0.9 Eos # (Auto) 0.7 H Baso # (Auto) 0.1 WBC Differential . Differential Comment Auto diff final Sodium 142 Potassium 2.8 L* Chloride 105 Carbon Dioxide 28.1 Anion Gap 9 BUN 11 Creatinine 0.50 Estimated GFR Greater than 89 POC Glucose Random Glucose 80 Calcium 7.8 L Magnesium 2.1 Total Bilirubin 0.3 AST 14 L ALT 16 Alkaline Phosphatase 149 H Total Protein 6.7 D Albumin 2.3 L Urine Color Urine Clarity Urine pH Ur Specific [place] Urine Protein Urine Glucose (UA) Urine Ketones Urine Occult Blood Urine Nitrate Urine Bilirubin Urine Urobilinogen Ur Leukocyte Esterase Urine WBC Urine WBC Clumps Ur Squamous Epith Cells Urine Bacteria Micro UA Comment Urine Culture Comments 09/22/18 08:38 WBC RBC Hgb Hct MCV MCH MCHC RDW Plt Count MPV Neut % (Auto) Lymph % (Auto) [place] % (Auto) Eos % (Auto) Baso % (Auto) Neut # (Auto) Lymph # (Auto) [place] # (Auto) Eos # (Auto) Baso # (Auto) WBC Differential Differential Comment Sodium Potassium Chloride Carbon Dioxide Anion Gap BUN Creatinine Estimated GFR POC Glucose 84 Random Glucose Calcium Magnesium Total Bilirubin AST ALT Alkaline Phosphatase Total Protein Albumin Urine Color Urine Clarity Urine pH Ur Specific [place] Urine Protein Urine Glucose (UA) Urine Ketones Urine Occult Blood Urine Nitrate Urine Bilirubin Urine Urobilinogen Ur Leukocyte Esterase Urine WBC Urine WBC Clumps Ur Squamous Epith Cells Urine Bacteria Micro UA Comment Urine Culture Comments - Imaging Impressions Venous Doppler Study 09/22/18 00:00 CONCLUSION: No venous thrombosis is identified within the left lower extremity. <Yony Garcia E - Last Filed: 09/22/18 18:46> Assessment and Plan (1) Abdominal pain Status: Acute Code(s): R10.9 - Unspecified abdominal pain - Plan This patient is a 52-year-old female with a past medical history of small bowel obstruction with resection and fistula formation. Patient presented to the emergency room at [facility] on 09/20/2018 with complaint of back and abdominal pain. Patient endorses that she had small bowel resection done in July 2018. This surgery led to a formation of a fistula. She had a wound vacuum but surgeon removed the same and abdominal wound is now covered with bandage. Upon consultation patient endorses gastric bypass surgery in 2002. She states that she has been experiencing epigastric pain with generalized weakness for 1 week. She endorses nausea but denies any associated vomiting. Patient describes her epigastric pain is burning and aching. She denies any aggravating or alleviating factors. States she takes pantoprazole twice daily and has been doing so for 6 months. She reports EGD done in 2017 at a hospital in [place] where she needed dilation of stricture. Patient states she has been having the sensation of food getting stuck in her throat(solid food and medications) for a few months. She reports multiple EGDs in the past done for esophageal strictures. Patient denies odynophagia or unintended weight loss. Patient reports last colonoscopy done estimated 10 years ago and to her recollection the findings were normal. Patient states she has normal soft brown bowel movements daily and denies any constipation or diarrhea. Patient denies any noted bleeding. Denies any tobacco use or use of alcohol products. Discussed possible need for EGD with dilation, patient verbalizes understanding and agreement. Abdominal pain Patient reporting epigastric pain times 1 week describes same as burning sensation. Associated nausea but denies vomiting. Patient endorses history of esophageal strictures with need for dilation. Last EGD 2017 done for same. States she currently takes pantoprazole twice daily and has been doing so for the last 6 months. Plan -N.p.o. -Obtain consent for EGD -EGD planned for today -PPI -Antiemetics as per attending -Supportive care -Further recommendations to follow based on patient status and findings This patient has been seen by myself and Dr. Garcia and this note is written on his behalf - Attending Attestation Dr. Garcia <Gela Lizarraga - Last Filed: 09/22/18 13:13> (1) Abdominal pain Status: Acute Code(s): R10.9 - Unspecified abdominal pain - Plan Patient seen and examined Agree with above Continue with current supportive care Monitor labs We will proceed with an upper endoscopy <Yony Garcia - Last Filed: 09/22/18 18:46>
[2018-09-22] MEDS: Collagenase Oint 30 GM Tube TOPICAL SCH (13:32)
[2018-09-22] MEDS: Potassium Chlor 10 mEq Premix 10 MEQ/100 ML PIGGYBACK IV.SIG SCH ×7 (13:51→23:08)
[2018-09-22] MEDS: metroNIDAZOLE 500 MG Tablet PO SCH ×2 (13:52→21:12)
--- NOTE | 2018-09-22 18:50 | P.PCN ---
Date of procedure: 09/22/18 Pre-op diagnosis: Abdominal pain Procedure: PROCEDURE PERFORMED EGD with biopsy PROCEDURE: The procedure, risks and benefits were discussed with Patient/POA and informed consent was obtained. Anesthesia sedated Patient with Diprivan. Patient was placed in the left lateral decubitus position. EGD: The Pentax videoscope was introduced through the oropharynx and advanced to the second portion of the duodenum under direct visualization. Retroflexion was performed in the stomach. FINDINGS: The esophagus this appeared to be unremarkable but the Z line was irregular and this was biopsied The stomach there were surgical changes consistent with subtotal gastrectomy with direct anastomosis to the small bowel the gastric pouch was normal and the anastomosis was normal The small bowel this appeared to be unremarkable and within normal limits ESTIMATED BLOOD LOSS: None SPECIMENS REMOVED: Esophageal biopsies COMPLICATIONS: None IMPRESSION: Irregular Z line Surgical changes of the stomach consistent with subtotal gastrectomy and gastric duodenal or jejunal anastomosis PLAN: Await biopsies Continue with current supportive care Anesthesia: MAC Surgeon: Yony Garcia Condition: stable Disposition: floor
[2018-09-22] MEDS: Potassium Chloride Inj 10 MEQ in Dextrose 5%/NaCl 0.9% Inj 1,000 ML IV.CONT SCH (22:04)
[2018-09-23] MEDS ORDERED: Butalbital/APAP/Caff 50/325/40 MG Tablet PO ONE (00:05)
[2018-09-23] MEDS ORDERED: Pharmacy Ordered Lab Info OTHER ONE (02:45)
[2018-09-23] MEDS: oxyCODONE/Acetaminophen 10/325 Tablet PO PRN ×5 (04:01→21:49)
[2018-09-23 04:10] LABS: Alanine Aminotransferase 13 U/L (10-53); Albumin 1.9 g/dL (3.4-5.0); Anion Gap 7 meq/L (5-15); Aspartate Aminotransferase 16 U/L (15-37); Blood Urea Nitrogen 11 mg/dL (7-18); Calcium 7.4 mg/dL (8.5-10.1); Carbon Dioxide 26.1 meq/L (21.0-32.0); Chloride 110 meq/L (98-107); Glomerular Filtration Rate Greater Than 89 mL/min (>89); Glucose,Random 98 mg/dL (74-106); Magnesium 1.8 mg/dL (1.5-2.5); Phosphorus 2.3 mg/dL (2.5-4.9); Potassium 3.6 meq/L (3.5-5.1); Sodium 143 meq/L (136-145)
[2018-09-23 04:14] LABS: Alkaline Phosphatase 118 U/L (45-117); Total Protein 5.9 g/dL (6.4-8.2); Vancomycin,Trough 11.9 mcg/mL (5.0-10.0)
[2018-09-23] MEDS: Vancomycin Inj 750 MG in Sodium Chlor 0.9% Inj 250 ML IV.SIG SCH (04:43)
[2018-09-23] MEDS: metroNIDAZOLE 500 MG Tablet PO SCH ×3 (05:40→21:48)
[2018-09-23] MEDS: Levothyroxine 50 MCG Tablet PO SCH (05:40)
[2018-09-23 07:31] LABS: Baso # (Auto) 0.1 th/mm3 (0.0-0.2); Baso % (Auto) 1.5 % (0.0-2.0); Eos # (Auto) 0.8 th/mm3 (0.0-0.4); Eos % (Auto) 12.9 % (0.0-4.0); Hematocrit 31.4 % (35.0-46.0); Hemoglobin 10.3 gm/dL (11.6-15.3); Lymph # (Auto) 0.8 th/mm3 (1.0-4.8); Lymph % (Auto) 13.1 % (9.0-44.0); Mean Corpuscular HGB Conc 32.8 % (32.0-36.0); Mean Corpuscular Volume 97.4 fL (80.0-100.0); Mean Platelet Volume 9.1 fL (7.0-11.0); Mono # (Auto) 0.8 th/mm3 (0.0-0.9); Mono % (Auto) 12.4 % (0.0-8.0); Neut # (Auto) 3.7 th/mm3 (1.8-7.7); Neut % (Auto) 60.1 % (16.0-70.0); Platelet Count 348 th/mm3 (150-450); Red Blood Count 3.23 mil/mm3 (4.00-5.30); Red Cell Distribution Width 16.3 % (11.6-17.2); White Blood Count 6.2 th/mm3 (4.0-11.0)
[2018-09-23 08:08] LABS: Free T4 (Free Thyroxine) 0.92 ng/dL (0.76-1.46); Thyroid Stimulating Hormone 0.407 uIU/mL (0.358-3.740)
[2018-09-23] MEDS: Metoprolol Tartrate 25 MG Tablet PO SCH ×2 (08:16→21:48)
[2018-09-23] MEDS: Senna/Docusate Sodium 8.6/50 MG Tablet PO SCH ×2 (08:16→21:49)
[2018-09-23] MEDS: Amitriptyline 100 MG Tablet PO SCH (08:17)
[2018-09-23] MEDS: Potassium Chloride Inj 10 MEQ in Dextrose 5%/NaCl 0.9% Inj 1,000 ML IV.CONT SCH ×3 (08:36→20:09)
[2018-09-23] MEDS: Collagenase Oint 30 GM Tube TOPICAL SCH (09:46)
--- NOTE | 2018-09-23 12:06 | P.PN ---
Subjective Interval history: Follow up for abdominal pain, s/p EGD 09/22-Pt. seen and examined, c/o epigastric discomfort with occ. spasms radiating. Mild nausea, no vomiting. No fever. Some pain around abdominal wound, which is chronic. Was seen by Dr. Mackenzie in [place] who has been managing wound vac and weaning off Dilaudid. Saw Dr. Bland pain management approx 1 week ago, was not prescribed any narcotics. Indicates that she is being considered for spinal cord stimulator placement for chronic pain. At this point, pain management doctor wants the wound to heal before proceeding with insertion of stimulator. Patient is asking for something to eat. No fever overnight. No acute changes. Did have a headache overnight that Fioricet resolved Physical Exam Vital signs: Vital Signs 09/22/18 15:00 09/22/18 18:49 09/22/18 19:00 Temperature 98.5 F 98.5 F Pulse Rate 102 H 98 H 97 H Respiratory Rate 18 14 14 Blood Pressure 118/61 123/67 124/64 Pulse Oximetry 98 100 100 09/22/18 19:15 09/22/18 20:00 09/23/18 00:00 Temperature 98.5 F 98.2 F 98.3 F Pulse Rate 100 H 114 H 92 H Respiratory Rate 14 18 18 Blood Pressure 133/66 120/65 121/65 Pulse Oximetry 100 100 97 09/23/18 04:00 09/23/18 08:00 Temperature 98.3 F 97.7 F Pulse Rate 100 H 83 Respiratory Rate 18 18 Blood Pressure 133/70 143/67 H Pulse Oximetry 96 100 Intake & Output 09/22/18 09/23/18 09/23/18 18:59 06:59 18:59 Intake Total 1257.5 / 1257.5 2057.5 / 2057.5 1105 / 1105 Output Total 200 / 200 1050 / 1050 Balance 1057.5 / 1057.5 1007.5 / 1007.5 1105 / 1105 Weight 63.1 kg 61.3 kg Intake: IV 857.5 / 857.5 1857.5 / 1857.5 1105 / 1105 KCl Inj 10 MEQ In D5W/Normal 1005 / 1005 Saline Inj 1,000 ML @ 100 mls/ hr IV.CONT .Q10H3M [facility] Rx#: [id number] NS Inj 1,000 ML @ 100 mls/hr IV 1200 / 1200 .CONT .Q10H [facility] Rx#:[id number] Maxipime Inj 2,000 MG In NS Inj 200 / 200 100 / 100 100 / 100 100 ML @ 200 mls/hr IV.SIG Q8H [facility] Rx#:[id number] Magnesium Sulfate 1 gm/D5W 100 100 / 100 ml Premix 100 ML @ 100 mls/hr IV.SIG ONCE ONE Rx#:[id number] KCl 10 mEq Premix Inj 10 meq In 100 / 100 300 / 300 100 ml @ 100 mls/hr IV.SIG Q1H [facility] Rx#:[id number] KCl 20 mEq Premix Inj 20 meq In 200 / 200 100 ml @ 50 mls/hr IV.SIG Q2H [facility] Rx#:[id number] Vancomycin Inj 750 MG In NS Inj 257.5 / 257.5 257.5 / 257.5 250 ML @ 250 mls/hr IV.SIG Q12H [facility] Rx#:[id number] Oral 200 / 200 Anesthesia Amount 400 / 400 Output: Urine 200 / 200 1050 / 1050 Other: # Voids 6 Narrative: GENERAL: 52-year-old female, frail-appearing. SKIN: Focused skin assessment warm/dry. HEAD: Atraumatic. Normocephalic. EYES: Pupils equal and round. No scleral icterus. No injection or drainage. ENT: No nasal bleeding or discharge. Mucous membranes pink and moist. NECK: Trachea midline. No JVD. CARDIOVASCULAR: Tachycardic. No murmur appreciated. RESPIRATORY: No accessory muscle use. Clear to auscultation. Breath sounds equal bilaterally. GASTROINTESTINAL: Abdomen soft. Mild diffuse tenderness. No rebound or guarding. There is an abdominal wound in the middle. Wound is about 3 x 3 cm with with bellamy drainage, granulation tissue noted. MUSCULOSKELETAL: No obvious deformities. No clubbing. No cyanosis. No edema. NEUROLOGICAL: Awake and alert and oriented x 3. No obvious cranial nerve deficits. Motor grossly within normal limits. Normal speech. PSYCHIATRIC: Appropriate mood and affect; insight and judgment normal. Results - Labs CBC & Chem 7: 09/23/18 05:29 09/23/18 03:20 Laboratory Results - last 24 hr 09/22/18 09/23/18 09/23/18 19:40 00:04 03:20 WBC RBC Hgb Hct MCV MCH MCHC RDW Plt Count MPV Neut % (Auto) Lymph % (Auto) [place] % (Auto) Eos % (Auto) Baso % (Auto) Neut # (Auto) Lymph # (Auto) [place] # (Auto) Eos # (Auto) Baso # (Auto) WBC Differential Differential Comment Sodium 143 Potassium 3.6 D Chloride 110 H Carbon Dioxide 26.1 Anion Gap 7 BUN 11 Creatinine 0.43 L Estimated GFR Greater than 89 POC Glucose 72 120 H Random Glucose 98 Calcium 7.4 L* Prot Corrected Calcium 8.1 L Phosphorus 2.3 L Magnesium 1.8 Total Bilirubin 0.3 AST 16 ALT 13 Alkaline Phosphatase 118 H Total Protein 5.9 L D Albumin 1.9 L TSH Free T4 Vancomycin Trough 11.9 H 09/23/18 09/23/18 09/23/18 05:29 05:29 05:53 WBC 6.2 RBC 3.23 L Hgb 10.3 L Hct 31.4 L MCV 97.4 MCH 32.0 MCHC 32.8 RDW 16.3 Plt Count 348 MPV 9.1 Neut % (Auto) 60.1 Lymph % (Auto) 13.1 [place] % (Auto) 12.4 H Eos % (Auto) 12.9 H Baso % (Auto) 1.5 Neut # (Auto) 3.7 Lymph # (Auto) 0.8 L [place] # (Auto) 0.8 Eos # (Auto) 0.8 H Baso # (Auto) 0.1 WBC Differential . Differential Comment Auto diff final Sodium Potassium Chloride Carbon Dioxide Anion Gap BUN Creatinine Estimated GFR POC Glucose 104 Random Glucose Calcium Prot Corrected Calcium Phosphorus Magnesium Total Bilirubin AST ALT Alkaline Phosphatase Total Protein Albumin TSH 0.407 Free T4 0.92 Vancomycin Trough Microbiology 09/20/18 21:05 Blood - Peripheral Aerobic Blood Culture - Preliminary No growth in 3 days 09/20/18 21:05 Blood - Peripheral Anaerobic Blood Culture - Preliminary No growth in 3 days 09/20/18 20:50 Blood - Peripheral Aerobic Blood Culture - Preliminary No growth in 3 days 09/20/18 20:50 Blood - Peripheral Anaerobic Blood Culture - Preliminary No growth in 3 days 09/21/18 00:41 Clean Catch Urine Urine Culture - Final Enterococcus faecalis 09/20/18 16:00 Wound - Abdominal Gram Stain - Final 09/20/18 16:00 Wound - Abdominal Wound Culture - Final Staphylococcus aureus Group B beta Strep Assessment and Plan - Assessment (1) Abdominal pain Code(s): R10.9 - Unspecified abdominal pain Status: Acute (2) Chronic pain Code(s): G89.29 - Other chronic pain Status: Chronic (3) Open abdominal wall wound Code(s): S31.109A - Unspecified open wound of abdominal wall, unspecified quadrant without penetration into peritoneal cavity, initial encounter Status : Chronic (4) History of splenectomy Code(s): Z90.81 - Acquired absence of spleen Status: Chronic (5) History of gastric bypass Code(s): Z98.84 - Bariatric surgery status Status: Chronic (6) Hypokalemia Code(s): E87.6 - Hypokalemia Status: Acute - Plan Mrs. Morrison is a 52-year-old female admitted secondary to abdominal pain related to fistula, hx of extensive surgical history primarily associated with complications of previous Chivo-en-Y gastric bypass. Abdominal pain, patient describes epigastric pain with spasms. 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 Had a wound VAC placed which was discontinued about [address] of abdomen completed with findings as noted. -Appreciate surgical input, discussed with Dr. Chang. He was able to speak to her surgeon. He reviewed CT findings, No acute perforation. There was some small bowel thickening possible fistulous tracts between bowel loops. Flagyl was added. Per Dr. Chang, he will sign off and follow peripherally. -GI evaluated patient. Input appreciated Status post EGD, no significant findings other than irregular Z line, biopsy pending Continue with PPI -We will start clear liquid diet Continue with hydration Replace electrolytes as needed If patient tolerates clears today, will advance as tolerated -Continue with empiric antibiotics for now, cefepime and Flagyl. -Continue with localized wound care per recommendations Chronic back pain Patient follows up with Dr. Marcus as outpatient, he is considering a spinal cord stimulator once her wound heals. She had been weaned off her Dilaudid by her surgeon, her last refill was on September 15. d-dimer positive, CTA negative for PE Could be that her symptoms may be withdrawal. -Continue pain management with Percocet Discussed with patient about weaning off narcotics and not continuing any upon discharge, she would like only a few days wort of narcotis She understands about concern with dependency. -Eforce verified. -Needs to follow-up as outpatient with pain management Renal insufficiency Renal function improving -Continue with IV hydration -Continue monitoring renal function -Avoid nephrotoxins Tachycardia, possibly withdrawal from narcotics May be related to pain Heart rate improving -Continue Lopressor -Continue on telemetry Hypokalemia Potassium stable Replace electrolytes as needed Left thigh pain Ultrasound negative for DVT DVT prophylaxis SCDs Lovenox Labs reviewed, stable We will see how she tolerates diet and advance as tolerated Possible discharge tomorrow Discussed with patient at length, she is encouraged to follow-up with her surgeon for future needs as she has a complex surgical history. She is encouraged to continue weaning of narcotics. Code Status: Full code Discussed Condition With: RN, pt, Dr. Chang Discharge Planning: Poss dc tomorrow (1) Abdominal pain Qualifiers: Abdominal location: epigastric Qualified Code(s): R10.13 - Epigastric pain (2) Chronic pain Qualifiers: Chronic pain type: chronic pain syndrome Qualified Code(s): G89.4 - Chronic pain syndrome (3) Open abdominal wall wound Qualifiers: Encounter type: sequela Qualified Code(s): S31.109S - Unspecified open wound of abdominal wall, unspecified quadrant without penetration into peritoneal cavity, sequela
[2018-09-23 13:16] LABS: Hemoglobin A1c 4.8 % (4.3-6.0)
[2018-09-23] MEDS: Vancomycin Inj 1,000 MG in Sodium Chlor 0.9% Inj 250 ML IV.SIG SCH (14:08)
--- NOTE | 2018-09-23 14:48 | P.PNGI ---
Subjective Interval history: Pt is resting in bed, still with abd pain , but no nausea or vomiting Physical Exam Vital signs: Vital Signs 09/22/18 15:00 09/22/18 18:49 09/22/18 19:00 Temperature 98.5 F 98.5 F Pulse Rate 102 H 98 H 97 H Respiratory Rate 18 14 14 Blood Pressure 118/61 123/67 124/64 Pulse Oximetry 98 100 100 09/22/18 19:15 09/22/18 20:00 09/23/18 00:00 Temperature 98.5 F 98.2 F 98.3 F Pulse Rate 100 H 114 H 92 H Respiratory Rate 14 18 18 Blood Pressure 133/66 120/65 121/65 Pulse Oximetry 100 100 97 09/23/18 04:00 09/23/18 08:00 09/23/18 12:00 Temperature 98.3 F 97.7 F Pulse Rate 100 H 83 87 Respiratory Rate 18 18 Blood Pressure 133/70 143/67 H Pulse Oximetry 96 100 Intake & Output 09/22/18 09/23/18 09/23/18 18:59 06:59 18:59 Intake Total 1257.5 / 1257.5 2057.5 / 2057.5 1105 / 1105 Output Total 200 / 200 1050 / 1050 Balance 1057.5 / 1057.5 1007.5 / 1007.5 1105 / 1105 Weight 63.1 kg 61.3 kg Intake: IV 857.5 / 857.5 1857.5 / 1857.5 1105 / 1105 KCl Inj 10 MEQ In D5W/Normal 1005 / 1005 Saline Inj 1,000 ML @ 100 mls/ hr IV.CONT .Q10H3M [facility] Rx#: [id number] NS Inj 1,000 ML @ 100 mls/hr IV 1200 / 1200 .CONT .Q10H [facility] Rx#:[id number] Maxipime Inj 2,000 MG In NS Inj 200 / 200 100 / 100 100 / 100 100 ML @ 200 mls/hr IV.SIG Q8H [facility] Rx#:[id number] Magnesium Sulfate 1 gm/D5W 100 100 / 100 ml Premix 100 ML @ 100 mls/hr IV.SIG ONCE ONE Rx#:[id number] KCl 10 mEq Premix Inj 10 meq In 100 / 100 300 / 300 100 ml @ 100 mls/hr IV.SIG Q1H [facility] Rx#:[id number] KCl 20 mEq Premix Inj 20 meq In 200 / 200 100 ml @ 50 mls/hr IV.SIG Q2H [facility] Rx#:[id number] Vancomycin Inj 750 MG In NS Inj 257.5 / 257.5 257.5 / 257.5 250 ML @ 250 mls/hr IV.SIG Q12H [facility] Rx#:[id number] Oral 200 / 200 Anesthesia Amount 400 / 400 Output: Urine 200 / 200 1050 / 1050 Other: # Voids 6 Narrative: GENERAL: 52-year-old female, in no acute distress ENT: No nasal bleeding or discharge. Mucous membranes pink and moist. NECK: Trachea midline. No JVD. CARDIOVASCULAR: Tachycardic. No murmur appreciated. RESPIRATORY: No accessory muscle use. Clear to auscultation. Breath sounds equal bilaterally. GASTROINTESTINAL: Abdomen soft. Mild diffuse tenderness. No rebound or guarding. There is an abdominal wound in the middle with gauze dressing MUSCULOSKELETAL: No obvious deformities. No clubbing. No cyanosis. No edema. NEUROLOGICAL: Awake and alert and oriented x 3. PSYCHIATRIC: Appropriate mood and affect; insight and judgment normal. Results - Labs CBC & Chem 7: 09/23/18 05:29 09/23/18 03:20 Laboratory Results - last 24 hr 09/22/18 09/23/18 09/23/18 19:40 00:04 03:20 WBC RBC Hgb Hct MCV MCH MCHC RDW Plt Count MPV Neut % (Auto) Lymph % (Auto) [place] % (Auto) Eos % (Auto) Baso % (Auto) Neut # (Auto) Lymph # (Auto) [place] # (Auto) Eos # (Auto) Baso # (Auto) WBC Differential Differential Comment Sodium 143 Potassium 3.6 D Chloride 110 H Carbon Dioxide 26.1 Anion Gap 7 BUN 11 Creatinine 0.43 L Estimated GFR Greater than 89 POC Glucose 72 120 H Random Glucose 98 Calcium 7.4 L* Prot Corrected Calcium 8.1 L Phosphorus 2.3 L Magnesium 1.8 Total Bilirubin 0.3 AST 16 ALT 13 Alkaline Phosphatase 118 H Total Protein 5.9 L D Albumin 1.9 L TSH Free T4 Vancomycin Trough 11.9 H 09/23/18 09/23/18 09/23/18 05:29 05:29 05:53 WBC 6.2 RBC 3.23 L Hgb 10.3 L Hct 31.4 L MCV 97.4 MCH 32.0 MCHC 32.8 RDW 16.3 Plt Count 348 MPV 9.1 Neut % (Auto) 60.1 Lymph % (Auto) 13.1 [place] % (Auto) 12.4 H Eos % (Auto) 12.9 H Baso % (Auto) 1.5 Neut # (Auto) 3.7 Lymph # (Auto) 0.8 L [place] # (Auto) 0.8 Eos # (Auto) 0.8 H Baso # (Auto) 0.1 WBC Differential . Differential Comment Auto diff final Sodium Potassium Chloride Carbon Dioxide Anion Gap BUN Creatinine Estimated GFR POC Glucose 104 Random Glucose Calcium Prot Corrected Calcium Phosphorus Magnesium Total Bilirubin AST ALT Alkaline Phosphatase Total Protein Albumin TSH 0.407 Free T4 0.92 Vancomycin Trough Microbiology 09/20/18 21:05 Blood - Peripheral Aerobic Blood Culture - Preliminary No growth in 3 days 09/20/18 21:05 Blood - Peripheral Anaerobic Blood Culture - Preliminary No growth in 3 days 09/20/18 20:50 Blood - Peripheral Aerobic Blood Culture - Preliminary No growth in 3 days 09/20/18 20:50 Blood - Peripheral Anaerobic Blood Culture - Preliminary No growth in 3 days 09/21/18 00:41 Clean Catch Urine Urine Culture - Final Enterococcus faecalis 09/20/18 16:00 Wound - Abdominal Gram Stain - Final 09/20/18 16:00 Wound - Abdominal Wound Culture - Final Staphylococcus aureus Group B beta Strep - Imaging Abdomen/Pelvis CT 09/20/18 09:07 CONCLUSION: 1. Status post extensive abdominal surgery with partial bowel resection. There is a nonspecific bowel gas pattern present with a high density structure in the right mid pelvis of unclear significance. This could represent inspissated barium outside the bowel. Correlation with any old outside studies and clinical history would be helpful. 2. Status post splenectomy. 3. The osseous structures are intact. There is mild osteopenia and scoliosis. 4. Status post cholecystectomy with gas in the central biliary system which may be secondary to anastomosis. 5. Moderate hepatic steatosis. Chest X-Ray 09/20/18 15:31 CONCLUSION: Cardiomegaly with probable mild interstitial edema. Abdomen/Pelvis CT 09/21/18 00:00 CONCLUSION: 1. The left anterior pelvis there is a area of distortion with some small bowel thickening. There is a large calcification that is actually slightly smaller today but most of the midline that was noted on the last study. There is a small locule of air (series 606 image 35) which is mildly concerning for air within the mesentery. There certainly is some soft tissue thickening around that region. There is also dense contrast throughout the colon. Patient is not obstructed. There are some loops of small bowel that are distended but not dilated. Chest CTA 09/21/18 00:00 CONCLUSION: 1. No evidence of pulmonary embolism. Lungs are grossly clear. No concerning infiltrate or mass. No substantial pleural effusion. 2. There is a 6 mm pulmonary nodule in the right upper lobe (image 36). There is a 6 mm pulmonary nodule along the major fissure on the right (image 65). 3 mm pulmonary nodule in the left upper lobe on image 39. Follow-up noncontrast chest CT in 6 months is recommended. Venous Doppler Study 09/22/18 00:00 CONCLUSION: No venous thrombosis is identified within the left lower extremity. Assessment and Plan (1) Abdominal pain Status: Acute Code(s): R10.9 - Unspecified abdominal pain - Plan This patient is a 52-year-old female with a past medical history of small bowel obstruction with resection and fistula formation. Patient presented to the emergency room at [facility] [place] on 09/20/2018 with complaint of back and abdominal pain. Patient endorses that she had small bowel resection done in July 2018. This surgery led to a formation of a fistula. She had a wound vacuum but surgeon removed the same and abdominal wound is now covered with bandage. Upon consultation patient endorses gastric bypass surgery in 2002. She states that she has been experiencing epigastric pain with generalized weakness for 1 week. She endorses nausea but denies any associated vomiting. Patient describes her epigastric pain is burning and aching. She denies any aggravating or alleviating factors. States she takes pantoprazole twice daily and has been doing so for 6 months. She reports EGD done in 2017 at a hospital in [place] where she needed dilation of stricture. Patient states she has been having the sensation of food getting stuck in her throat(solid food and medications) for a few months. She reports multiple EGDs in the past done for esophageal strictures. Patient denies odynophagia or unintended weight loss. Patient reports last colonoscopy done estimated 10 years ago and to her recollection the findings were normal. Patient states she has normal soft brown bowel movements daily and denies any constipation or diarrhea. Patient denies any noted bleeding. Denies any tobacco use or use of alcohol products. Discussed possible need for EGD with dilation, patient verbalizes understanding and agreement. Abdominal pain EGD on 09/22/18 - Irregular Z line, bx Surgical changes of the stomach consistent with subtotal gastrectomy and gastric duodenal or jejunal anastomosis Abdomen/Pelvis CT 09/20/18 1. Status post extensive abdominal surgery with partial bowel resection. There is a nonspecific bowel gas pattern present with a high density structure in the right mid pelvis of unclear significance. This could represent inspissated barium outside the bowel. Correlation with any old outside studies and clinical history would be helpful. 2. Status post splenectomy. 3. The osseous structures are intact. There is mild osteopenia and scoliosis. 4. Status post cholecystectomy with gas in the central biliary system which may be secondary to anastomosis. 5. Moderate hepatic steatosis. GS on the case, no intervention planned, possibly secondary to narcotics cessation Plan: - Advance diet, discussed with Mrs. Holly - Await bx - GS on the case - Supportive care - Pt seen and examined by Dr. Ochoa and myself and this note is written on her behalf. (1) Abdominal pain Qualifiers: Abdominal location: epigastric Qualified Code(s): R10.13 - Epigastric pain
[2018-09-23] MEDS: Enoxaparin Inj 30 MG/0.3 ML Syringe SQ SCH (16:20)
[2018-09-24] MEDS: oxyCODONE/Acetaminophen 10/325 Tablet PO PRN ×2 (01:46→05:51)
[2018-09-24] MEDS: Vancomycin Inj 1,000 MG in Sodium Chlor 0.9% Inj 250 ML IV.SIG SCH (02:00)
[2018-09-24] MEDS: Levothyroxine 50 MCG Tablet PO SCH (05:51)
[2018-09-24] MEDS: metroNIDAZOLE 500 MG Tablet PO SCH (05:51)
[2018-09-24] MEDS: Potassium Chloride Inj 10 MEQ in Dextrose 5%/NaCl 0.9% Inj 1,000 ML IV.CONT SCH (06:22)
[2018-09-24 07:28] LABS: Anion Gap 6 meq/L (5-15); Blood Urea Nitrogen 5 mg/dL (7-18); Calcium 7.8 mg/dL (8.5-10.1); Carbon Dioxide 29.8 meq/L (21.0-32.0); Chloride 106 meq/L (98-107); Glomerular Filtration Rate Greater Than 89 mL/min (>89); Glucose,Random 106 mg/dL (74-106); Potassium 3.3 meq/L (3.5-5.1); Sodium 142 meq/L (136-145)
--- NOTE | 2018-09-24 08:07 | P.PN ---
Subjective Interval history: Follow up for abdominal pain, s/p EGD 09/22-Pt. seen and examined, tolerating regular diet well, no nausea, no vomiting. Minimal epigastric discomfort. No fever overnight. No chest pain, no shortness of breath. Physical Exam Vital signs: Vital Signs 09/23/18 12:00 09/23/18 16:00 09/23/18 20:00 Temperature 97.9 F 97.5 F L 98.2 F Pulse Rate 83 88 88 Respiratory Rate 18 18 18 Blood Pressure 135/73 145/75 H 133/68 Pulse Oximetry 100 100 99 09/24/18 00:00 09/24/18 04:00 Temperature 97.2 F L 98.3 F Pulse Rate 84 89 Respiratory Rate 18 20 Blood Pressure 125/62 137/64 Pulse Oximetry 98 99 Intake & Output 09/23/18 09/24/18 09/24/18 19:59 06:59 18:59 Intake Total Output Total Balance Weight Intake: IV KCl Inj 10 MEQ In D5W/Normal Saline Inj 1,000 ML @ 100 mls/ hr IV.CONT .Q10H3M MARIELLA Rx#: [id number] Maxipime Inj 2,000 MG In NS Inj 100 ML @ 200 mls/hr IV.SIG Q8H MARIELLA Rx#:[id number] Vancomycin Inj 1,000 MG In NS Inj 250 ML @ 250 mls/hr IV.SIG Q12H MARIELLA Rx#:[id number] Oral Output: Urine Other: Date of Last Bowel Movement # Bowel Movements Narrative: GENERAL: 52-year-old female, frail-appearing. SKIN: Focused skin assessment warm/dry. HEAD: Atraumatic. Normocephalic. EYES: Pupils equal and round. No scleral icterus. No injection or drainage. ENT: No nasal bleeding or discharge. Mucous membranes pink and moist. NECK: Trachea midline. No JVD. CARDIOVASCULAR: S1-S2, RRR, no murmur appreciated. RESPIRATORY: No accessory muscle use. Clear to auscultation. Breath sounds equal bilaterally. GASTROINTESTINAL: Abdomen soft. Mild diffuse tenderness. No rebound or guarding. There is an abdominal wound in the middle. Wound is about 3 x 3 cm with with bellamy drainage, granulation tissue noted. MUSCULOSKELETAL: No obvious deformities. No clubbing. No cyanosis. No edema. NEUROLOGICAL: Awake and alert and oriented x 3. No obvious cranial nerve deficits. Motor grossly within normal limits. Normal speech. PSYCHIATRIC: Appropriate mood and affect; insight and judgment normal. Results - Labs CBC & Chem 7: 09/23/18 05:29 09/24/18 06:30 Laboratory Results - last 24 hr 09/23/18 09/24/18 05:29 06:30 Sodium 142 Potassium 3.3 L Chloride 106 Carbon Dioxide 29.8 Anion Gap 6 BUN 5 L Creatinine 0.53 Estimated GFR Greater than 89 Random Glucose 106 Hemoglobin A1c 4.8 Calcium 7.8 L Microbiology 09/20/18 21:05 Blood - Peripheral Aerobic Blood Culture - Preliminary No growth in 3 days 09/20/18 21:05 Blood - Peripheral Anaerobic Blood Culture - Preliminary No growth in 3 days 09/20/18 20:50 Blood - Peripheral Aerobic Blood Culture - Preliminary No growth in 3 days 09/20/18 20:50 Blood - Peripheral Anaerobic Blood Culture - Preliminary No growth in 3 days 09/21/18 00:41 Clean Catch Urine Urine Culture - Final Enterococcus faecalis Assessment and Plan - Assessment (1) Abdominal pain Code(s): R10.9 - Unspecified abdominal pain Status: Acute (2) Chronic pain Code(s): G89.29 - Other chronic pain Status: Chronic (3) Open abdominal wall wound Code(s): S31.109A - Unspecified open wound of abdominal wall, unspecified quadrant without penetration into peritoneal cavity, initial encounter Status : Chronic (4) History of splenectomy Code(s): Z90.81 - Acquired absence of spleen Status: Chronic (5) History of gastric bypass Code(s): Z98.84 - Bariatric surgery status Status: Chronic (6) Hypokalemia Code(s): E87.6 - Hypokalemia Status: Acute - Plan Mrs. Morrison is a 52-year-old female admitted secondary to abdominal pain related to fistula, hx of extensive surgical history primarily associated with complications of previous Chivo-en-Y gastric bypass. Abdominal pain, patient describes epigastric pain with spasms. 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 Had a wound VAC placed which was discontinued about [address] of abdomen completed with findings as noted. -Appreciate surgical input, discussed with Dr. Chang. He was able to speak to her surgeon. He reviewed CT findings, No acute perforation. There was some small bowel thickening possible fistulous tracts between bowel loops. Flagyl was added. Per Dr. Chang, he will sign off and follow peripherally. -GI evaluated patient. Input appreciated Status post EGD, no significant findings other than irregular Z line, biopsy pending Continue with PPI -Tolerated diet well, no nausea no vomiting. Appreciate GI and surgical input, cleared for surgery. -We will give Rx for 2 more days of Flagyl. -Continue with localized wound care per home health care Chronic back pain Patient follows up with Dr. Marcus as outpatient, he is considering a spinal cord stimulator once her wound heals. She had been weaned off her Dilaudid by her surgeon, her last refill was on September 15. d-dimer positive, CTA negative for PE Could be that her symptoms may be withdrawal. -Continue pain management with Percocet, will give 3 days. Instructed to wean off. Try to use Tylenol in between as needed. Discussed with patient about weaning off narcotics and not continuing any upon discharge, she would like only a few days wort of narcotis She understands about concern with dependency. -Eforce verified. -Needs to follow-up as outpatient with pain management Renal insufficiency Renal function improving -Continue with IV hydration -Continue monitoring renal function -Avoid nephrotoxins Tachycardia, possibly withdrawal from narcotics May be related to pain Tachycardia resolved -Continue Lopressor -Continue on telemetry Hypokalemia Potassium stable Replace electrolytes as needed Left thigh pain Ultrasound negative for DVT DVT prophylaxis SCDs Lovenox Vital signs stable, afebrile. Tolerating diet well Patient stable for discharge Discharge home today with home health care Case management to resume home health care Heart healthy diet Activity as tolerated Continue with wound care Follow-up with her surgeon as well as pain management Heart healthy diet Activity as tolerated Code Status: Full code Discussed Condition With: RN, pt Discharge Planning: DC today [facility] Prescription Drug Monitoring Database has been queried and verified prior to prescribing the controlled substance. Acute pain exception. This patient has normal, predicted, physiological, and time limited response to an adverse mechanical stimulus associated with surgery, trauma, or acute illness as described in my notes. There is a lack of alternative treatment options other than to include the prescribed narcotic treatment for this condition. Last Rx for Dilaudid 2 mg po # 18 for 3 days on 09/15/2018 (1) Abdominal pain Qualifiers: Abdominal location: epigastric Qualified Code(s): R10.13 - Epigastric pain (2) Chronic pain Qualifiers: Chronic pain type: chronic pain syndrome Qualified Code(s): G89.4 - Chronic pain syndrome (3) Open abdominal wall wound Qualifiers: Encounter type: sequela Qualified Code(s): S31.109S - Unspecified open wound of abdominal wall, unspecified quadrant without penetration into peritoneal cavity, sequela
--- NOTE | 2018-09-24 08:13 | P.DCO ---
- Diagnosis (1) Open abdominal wall wound Status: Chronic - Home Health Nursing Order: Medical education, Wound care and dressing changes, Nursing assessment with vital signs - Case Management Consult Yes - Certification I have seen patient Jael Morrison on 09/24/18. My clinical findings support the need for the requested home health care services because: complex abdominal wound Deconditioned with increased weakness I certify that my clinical findings support that this patient is homebound because: Need for psychosocial assistance (1) Open abdominal wall wound Qualifiers: Encounter type: sequela Qualified Code(s): S31.109S - Unspecified open wound of abdominal wall, unspecified quadrant without penetration into peritoneal cavity, sequela
[2018-09-24] MEDS: Senna/Docusate Sodium 8.6/50 MG Tablet PO SCH (08:25)
[2018-09-24] MEDS: Metoprolol Tartrate 25 MG Tablet PO SCH (08:25)
[2018-09-24] MEDS: Collagenase Oint 30 GM Tube TOPICAL SCH (08:27)
[2018-09-24] MEDS: Amitriptyline 100 MG Tablet PO SCH (09:14)
[2018-09-24] MEDS ORDERED: Pharmacy Ordered Lab Info OTHER ONE (13:45)
--- NOTE | 2018-09-24 15:49 | P.DS ---
Date of admission: 09/20/18 15:26 Primary care physician: UNKNOWN Attending physician on discharge: Russ Curry Anticipated date of discharge: 09/24/18 Brief History from admission: The patient is a 52-year-old female with past medical history of bowel obstruction and fistula formation who is presenting to the hospital with severe back and abdominal pain. She says yesterday she developed upper back pain. She says she noticed it when she was trying to ambulate. She associated weakness with it. She says the upper back pain is a 10 out of 10 in severity and has no radiation. She describes it as a squeezing type of ache. She denies any shortness of breath or chest pain. She does endorse palpitations. The patient says she also developed abdominal pain about 2 weeks ago. She says in July she had abdominal surgery which led to fistula formation. She says over the past couple of weeks she developed generalized severe abdominal pain. She is able to tolerate a diet. She has not been nauseous. She has been having normal bowel movements. She says she follows up with a surgeon at an outside hospital but has not seen the surgeon since she started to have the abdominal pain. She says she has an abdominal wound which has been bandaged. She follows up with her surgeon for that. She denies any drainage from the wound. DS: Diagnosis - Discharge Diagnosis (1) Abdominal pain Status: Acute (2) Chronic pain Status: Chronic (3) Open abdominal wall wound Status: Chronic (4) History of splenectomy Status: Chronic (5) History of gastric bypass Status: Chronic (6) Hypokalemia Status: Acute DS: Medications - Discharge Medications Prescriptions: metronidazole 500 mg PO Q8HR 2 Days #6 tab oxycodone-acetaminophen [Percocet] 1 tab PO Q6H PRN 3 Days #12 tab PRN Reason: PAIN 6 TO 10 DS: Summary Hospital Course: Mrs. Morrison is a 52-year-old female admitted secondary to abdominal pain related to fistula, hx of extensive surgical history primarily associated with complications of previous Chivo-en-Y gastric bypass. Abdominal pain, patient describes epigastric pain with spasms. 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 Had a wound VAC placed which was discontinued about [address] of abdomen completed with findings as noted. -Appreciated surgical input, discussed with Dr. Chang. He was able to speak to her surgeon. He reviewed CT findings, No acute perforation. There was some small bowel thickening possible fistulous tracts between bowel loops. Flagyl was added. Recommended GI evaluation Per Dr. Chang, he sign off and follow peripherally. -GI evaluated patient. EGD recommended Status post EGD, no significant findings other than irregular Z line, biopsy pending Continued with PPI -diet initiated, Tolerated well, no nausea no vomiting. -was given Rx for 2 more days of Flagyl. -Continued with localized wound care per home health care. Resumed HHC at home Chronic back pain Patient follows up with Dr. Marcus as outpatient, he is considering a spinal cord stimulator once her wound heals. She had been weaned off her Dilaudid by her surgeon, her last refill was on September 15. d-dimer positive, CTA negative for PE Could be that her symptoms may be withdrawal. -Was continued on pain management with Percocet, Given 3 more days upon discharge. Instructed to wean off. Try to use Tylenol in between as needed. Discussed with patient about weaning off narcotics and not continuing any upon discharge, she wanted only a few days wort of narcotics She understands about concern with dependency. -Eforce was verified. -Needs to follow-up as outpatient with pain management Renal insufficiency Renal function improved -Given IVF, BMP followed -Avoided nephrotoxins Tachycardia, possibly withdrawal from narcotics May be related to pain Tachycardia resolved -Continued Lopressor -Continued on telemetry Hypokalemia Potassium stable was Replaced as needed Left thigh pain Ultrasound negative for DVT Vital signs stable, afebrile. Tolerated diet well Patient was discharged home - Time Spent with Patient Total time spent providing and/or coordinating discharge services: 40 minutes Greater than 30 minutes - Quality: VTE Deep Vein Thrombosis/Pulmonary Embolism Present on Admission: No Exam Vital signs: Vital Signs 09/23/18 20:00 09/24/18 00:00 09/24/18 04:00 Temperature 98.2 F 97.2 F L 98.3 F Pulse Rate 88 84 89 Respiratory Rate 18 18 20 Blood Pressure 133/68 125/62 137/64 Pulse Oximetry 99 98 99 09/24/18 08:00 Temperature Pulse Rate 109 H Respiratory Rate 20 Blood Pressure Pulse Oximetry Intake & Output 09/23/18 09/24/1809/24/18 19:59 06:59 18:59 Intake Total Output Total Balance Weight Intake: IV KCl Inj 10 MEQ In D5W/Normal Saline Inj 1,000 ML @ 100 mls/ hr IV.CONT .Q10H3M MARIELLA Rx#: [id number] Maxipime Inj 2,000 MG In NS Inj 100 ML @ 200 mls/hr IV.SIG Q8H MARIELLA Rx#:[id number] Vancomycin Inj 1,000 MG In NS Inj 250 ML @ 250 mls/hr IV.SIG Q12H MARIELLA Rx#:[id number] Oral Output: Urine Other: Date of Last Bowel Movement 09/24/18 # Bowel Movements Results Procedures completed during hospitalization: Date of procedure: 09/22/18 Pre-op diagnosis: Abdominal pain Procedure: PROCEDURE PERFORMED EGD with biopsy Labs on day of discharge: Labs from last 24 hours 09/24/18 06:30 Sodium 142 Potassium 3.3 L Chloride 106 Carbon Dioxide 29.8 Anion Gap 6 BUN 5 L Creatinine 0.53 Estimated GFR Greater than 89 Random Glucose 106 Calcium 7.8 L Preliminary micro results at discharge 09/20/18 21:05 Aerobic Blood Culture - Preliminary Blood - Peripheral No growth in 4 days Anaerobic Blood Culture - Preliminary No growth in 4 days 09/20/18 20:50 Aerobic Blood Culture - Preliminary Blood - Peripheral No growth in 4 days Anaerobic Blood Culture - Preliminary No growth in 4 days - Impressions ITS Impressions Chest X-Ray 09/20/18 15:31 CONCLUSION: Cardiomegaly with probable mild interstitial edema. Abdomen/Pelvis CT 09/21/18 00:00 CONCLUSION: 1. The left anterior pelvis there is a area of distortion with some small bowel thickening. There is a large calcification that is actually slightly smaller today but most of the midline that was noted on the last study. There is a small locule of air (series 606 image 35) which is mildly concerning for air within the mesentery. There certainly is some soft tissue thickening around that region. There is also dense contrast throughout the colon. Patient is not obstructed. There are some loops of small bowel that are distended but not dilated. Chest CTA 09/21/18 00:00 CONCLUSION: 1. No evidence of pulmonary embolism. Lungs are grossly clear. No concerning infiltrate or mass. No substantial pleural effusion. 2. There is a 6 mm pulmonary nodule in the right upper lobe (image 36). There is a 6 mm pulmonary nodule along the major fissure on the right (image 65). 3 mm pulmonary nodule in the left upper lobe on image 39. Follow-up noncontrast chest CT in 6 months is recommended. Venous Doppler Study 09/22/18 00:00 CONCLUSION: No venous thrombosis is identified within the left lower extremity. Discharge Plan - Discharge Disposition Patient Disposition: /Home Health Service - Discharge Condition Condition: Stable - Discharge Order Discharge Orders: Discharge Order (Routine); Ordered 09/24/18 Ordered By: Yamile Holly - Discharge Details Anticipated Discharge Date: 09/24/18 - Physicians Team Primary Care Provider: UNKNOWN, Attending Provider: Russ Curry Other Providers: Markus Chang MD ; Yony Garcia MD ; [facility] [place] [place]
== END 2018-09-24 10:33 | disposition home health service (06) ==
LOC: NEDA 08:34 → NEPE 08:34 → NEDA 15:50 → NEPGCP 15:55 → N04 09-22 14:24
PROVIDERS: ADMIT Family Medicine; ATTEND Family Medicine
PROC: PANENDO (2018-09-22 18:28)

== ENCOUNTER 2018-10-02 02:40 | Inpatient (IN) ==
[2018-10-02] MEDS ORDERED: Sod Chloride 0.9% Inj 1,000 ML IV.CONT SCH (03:00)
[2018-10-02 03:37] LABS: Baso # (Auto) 0.1 th/mm3 (0.0-0.2); Eos % (Auto) 0.1 % (0.0-4.0); Hematocrit 36.5 % (35.0-46.0); Hemoglobin 11.8 gm/dL (11.6-15.3); Lymph # (Auto) 0.8 th/mm3 (1.0-4.8); Lymph % (Auto) 6.3 % (9.0-44.0); Mean Corpuscular HGB Conc 32.3 % (32.0-36.0); Mean Corpuscular Hemoglobin 30.8 pg (27.0-34.0); Mean Corpuscular Volume 95.3 fL (80.0-100.0); Mean Platelet Volume 9.7 fL (7.0-11.0); Mono # (Auto) 0.8 th/mm3 (0.0-0.9); Mono % (Auto) 6.2 % (0.0-8.0); Neut # (Auto) 11.3 th/mm3 (1.8-7.7); Neut % (Auto) 86.4 % (16.0-70.0); Platelet Count 387 th/mm3 (150-450); Red Blood Count 3.83 mil/mm3 (4.00-5.30); Red Cell Distribution Width 15.7 % (11.6-17.2)
--- NOTE | 2018-10-02 03:43 | CT ---
EXAM DATE: 10/02/2018 3:29 AM EST AGE/SEX: 52 years / Female INDICATIONS: Altered mental status. CLINICAL DATA: This is the patient's initial encounter. Patient reports that signs and symptoms have been present for 1 day and indicates a pain score of Nonresponsive. MEDICAL/SURGICAL HISTORY: Non-responsive. Non-responsive. RADIATION DOSE: 34.24 CTDI (mGy) COMPARISON: No prior exams available for comparison. TECHNIQUE: CT of the head without contrast. Using automated exposure control and adjustment of the mA and/or kV according to patient size, radiation dose was kept as low as reasonably achievable to ob tain optimal diagnostic quality images. DICOM format image data is available electronically for revi ew and comparison. FINDINGS: Cerebrum: The ventricles are normal for age. No evidence of midline shift, mass lesion, hemorrhage or acute infarction. No extraaxial fluid collections are seen. Posterior Fossa: The cerebellum and brainstem are intact. The 4th ventricle is midline. The cerebe llopontine angle is unremarkable. Extracranial: The visualized portion of the orbits is intact. Skull: The calvaria is intact. No evidence of skull fracture. CONCLUSION: Negative CT Head non contrast. . Electronically signed by: Mao De Los Santos MD 10/02/2018 3:42 AM EST
[2018-10-02 03:50] LABS: Prothrombin Time 10.5 sec (9.8-11.6)
[2018-10-02 04:05] LABS: Alkaline Phosphatase 129 U/L (45-117); Thyroid Stimulating Hormone 0.677 uIU/mL (0.358-3.740)
[2018-10-02 04:06] LABS: Alanine Aminotransferase 20 U/L (10-53); Albumin 2.9 g/dL (3.4-5.0); Anion Gap 16 meq/L (5-15); Aspartate Aminotransferase 31 U/L (15-37); Blood Urea Nitrogen 18 mg/dL (7-18); Calcium 8.1 mg/dL (8.5-10.1); Carbon Dioxide 21.3 meq/L (21.0-32.0); Chloride 108 meq/L (98-107); Glomerular Filtration Rate 45 mL/min (>89); Glucose,Random 80 mg/dL (74-106); Magnesium 1.4 mg/dL (1.5-2.5); Potassium 3.5 meq/L (3.5-5.1); Sodium 145 meq/L (136-145)
[2018-10-02] MEDS ORDERED: Mag Sulf 1 gm/100 ml Premix 100 ML IV.SIG ONE (04:12)
[2018-10-02] MEDS ORDERED: Bisacodyl 10 MG Supp RECTAL PRN (04:26)
[2018-10-02] MEDS ORDERED: Acetaminophen 325 MG Tablet PO PRN (04:26)
[2018-10-02] MEDS ORDERED: Gentamicin/NS 80 mg Premix 100 ML IV.SIG ONE ×2 (04:29→05:39)
[2018-10-02] MEDS ORDERED: Sod Chloride 0.9% Inj 1,000 ML IV.SIG SCH (04:30)
--- NOTE | 2018-10-02 05:12 | P.HPIM ---
History of Present Illness Primary Care Physician: No Primary Care Physician History of Present Illness: This is a 52-year-old female with a PMH of HTN, Hypothyroidism, TIA, Migraine, H /o Bowel Obstruction w/ Fistula and Open Abdominal Wound and Bipolar Disorder who was brought to the ER by EMS for AMS. Per report, pt's neighbors called due to bizarre behavior-putting her purse in the microwave, cleaning the house w / alcohol wipes. Multiple ER presentations/admissions recently...Previous admit 09/20-09/24/18 for abdominal wound w/ fistula s/p eval by Dr. Chang w/ surgery and d/c'd on Flagyl, also noted to have significant Opioid Dependence and all opioids discontinued at the time of discharge. Seen in ER on 09/26/18 for c/o headache, CT Head negative and d/c'd home. Seen again 09/30/18 for migraine after Fioricet/Sumatriptan w/ no relief and d/c'd home. Seen on for voluntary Psych eval as pt reporting manic episode w/ hallucinations, stated she was told she had Bipolar Disorder but has not been on medication, ultimately left before Psych eval. Also found to have 2nd/3rd/4th fractures left foot, s/p splint w/ instructions to follow w/ Dr. Truong as outpatient. Seen again on 09/30/18 for c/o generalized pain, U/a from 09/29 + and pt d/c'd on Macrobid. at bedside states he took pt to on 09/30 for another evaluation and was again told she had UTI and was d/c'd home. Today, states pt had been doing better, he went to work this evening and when he returned home found that she had been brought here. Pt not providing meaningful history. Does admit to feeling confused and "not myself". On arrival, BP 143/64, HR 123, O2 sat 98% on RA, Afebrile. WBC 13. INR 1.0. Creatinine 1.25, previously 0.77 on 09/29/2018. Troponin negative. Alcohol negative. CT Head negative. Review of urine culture from 09/29 w/ ESBL +E. Coli , s/p Gent in ER. - Diagnosis (1) Encephalopathy (2) Opioid dependence (3) UTI (urinary tract infection) (4) Open abdominal wall wound (5) Foot fracture (6) LUI (acute kidney injury) Review of Systems PAST FAMILY HISTORY: Reviewed. No h/o DM or CAD All other systems reviewed negative except as stated in HPI [facility] - History History Provided By: Group Supervisor [employer] / EMT - Medical History Medical History: Medical History (Last Reviewed 09/30/18 @ 05:27 by Nikki Nielson MD) Bowel obstruction Hypothyroidism Migraine Pulmonary embolism TIA (transient ischemic attack) - Surgical History Surgical History: Surgical History (Last Reviewed 09/30/18 @ 05:27 by Nikki Nielson MD) H/O abdominal surgery - Family History Family History: Family History (Last Reviewed 09/30/18 @ 05:27 by Nikki Nielson MD) Other No pertinent family history - Tobacco History Second Hand Smoke Exposure: No Smoking Status: Never smoker - Alcohol History How Often Do You Have a Drink Containing Alcohol: Never - Substance Use History Substance History: No History of Abuse - Immunization History Tetanus Immunization: >5 Years Medications and Allergies Active Medications: Active Medications Acetaminophen (Tylenol) 650 mg PO Q4H PRN PRN Reason: Temp > 100.4 Al Hydroxide/Mg Hydroxide (Milk Of Magnesia Liq) 30 ml PO Q12H PRN PRN Reason: Mild Constipation Bisacodyl (Dulcolax Supp) 10 mg RECTAL DAILY PRN PRN Reason: SEVERE CONSITIPATION Sodium Chloride (Ns Inj) 1,000 mls @ 125 mls/hr IV.CONT .Q8H MARIELLA Last Admin: 10/02/18 03:25 Dose: 125 mls/hr Magnesium Sulfate/Dextrose (Magnesium Sulfate 1 Gm/D5w 100 Ml Premix) 100 mls @ 100 mls/hr IV.SIG ONCE ONE Stop: 10/02/18 05:11 Last Admin: 10/02/18 04:34 Dose: 100 mls/hr Sodium Chloride (Ns Inj) 1,000 mls @ 100 mls/hr IV.CONT .Q10H MARIELLA Sodium Chloride (Ns Inj) 1,000 mls @ 1,000 mls/hr IV.SIG BOLUS MARIELLA Stop: 10/02/18 05:29 Gentamicin Sulfate/Sodium Chloride (Gentamicin/Ns 80 Mg Premix) 100 mls @ 200 mls/hr IV.SIG ONCE ONE Stop: 10/02/18 04:58 Lactulose (Lactulose Liq) 30 ml PO DAILY PRN PRN Reason: SEVERE CONSITIPATION Ondansetron HCl (Zofran Inj) 4 mg IV.PUSH Q6H PRN PRN Reason: NAUSEA OR VOMITING Senna/Docusate Sodium (Lin-Colace) 1 tab PO BID MARIELLA Sennosides (Senokot) 17.2 mg PO Q12H PRN PRN Reason: Moderate Constipation Sodium Chloride (Ns Flush) 2 ml IV.FLUSH PRN PRN PRN Reason: FLUSH AFTER USING IV ACCESS Allergies Allergy/AdvReac Type Severity Reaction Status Date / Time adhesive Allergy Itching Verified 09/29/18 15:29 bee venom protein (honey bee) Allergy Unconscious Verified 09/26/18 01:15 cephalexin [From Keflex] Allergy Anaphylaxis Verified 09/26/18 01:15 codeine Allergy Itching Verified 09/26/18 01:15 ketorolac [From Toradol] Allergy Weakness Verified 09/26/18 02:14 Penicillins Allergy Itching Verified 09/26/18 01:15 Home Medications Medication Instructions Recorded Confirmed Type amitriptyline 200 mg PO DAILY 09/20/18 10/02/18 History baclofen 20 mg PO TID 09/20/18 10/02/18 History levothyroxine 50 mcg PO DAILY 09/20/18 10/02/18 History metoprolol tartrate 25 mg PO BID 09/20/18 10/02/18 History xbkitctgoo-yzkldfuqpglpy-kooc 2 cap PO Q4H PRN 09/26/18 10/02/18 History [Fioricet] pyridostigmine bromide 60 mg PO QID 09/26/18 10/02/18 History sumatriptan succinate 100 mg PO Q2-4H PRN 09/26/18 10/02/18 History fluticasone [Flonase Allergy 50 mg INTRANASAL DAILY 09/29/18 10/02/18 History Relief] nitrofurantoin monohyd/m-cryst 100 mg PO BID 09/29/18 10/02/18 History [Macrobid] Exam Vital signs: Vital Signs 10/02/18 03:25 10/02/18 04:04 Temperature 98.6 F Pulse Rate 123 H Respiratory Rate 18 Blood Pressure 143/64 H Pulse Oximetry 98 98 Intake & Output 10/01/18 10/01/18 10/02/18 06:59 18:59 06:59 Weight 60 kg Narrative: PE: GENERAL: Middle-aged white female in no acute distress, mildly anxious but calm/ pleasant. at bedside. SKIN: Focused skin assessment warm and dry. HEENT: PERRLA, EOMI. No scleral icterus or conjunctival pallor. No lid lag or facial droop. CARDIOVASCULAR: Regular rate and rhythm. No obvious murmurs to auscultation. No chest tenderness to palpation. RESPIRATORY: No obvious rhonchi or wheezing. Clear to auscultation. Breath sounds equal bilaterally. GASTROINTESTINAL: Abdomen soft, non-tender, nondistended. BS normal. Abdominal wound open, chronic, appears unchanged, no signs of infection. MUSCULOSKELETAL: Extremities without clubbing, cyanosis, or edema. No obvious deformities. NEUROLOGICAL: Awake, alert, confused, anxious. No focal neurologic deficits. Moving both upper and lower extremities spontaneously. PSYCHIATRIC: Appropriate mood and affect. Insight and judgment normal. Results - Labs CBC & Chem 7: 10/02/18 03:20 10/02/18 03:20 Labs: Short CBC 10/02/18 Range/Units 03:20 WBC 13.0 H (4.0-11.0) th/mm3 Hgb 11.8 (11.6-15.3) gm/dL Hct 36.5 (35.0-46.0) % Plt Count 387 (150-450) th/mm3 BMP 10/02/18 03:20 Sodium 145 Potassium 3.5 Chloride 108 H Carbon Dioxide 21.3 BUN 18 Creatinine 1.25 H Calcium 8.1 L Cardiac Enzymes 10/02/18 Range/Units 03:20 Troponin I Less than 0.02 L (0.02-0.05) ng/mL Liver Function 10/02/18 Range/Units 03:20 Total Bilirubin 0.3 (0.2-1.0) mg/dL AST 31 (15-37) U/L ALT 20 (10-53) U/L Alkaline Phosphatase 129 H (45-117) U/L Albumin 2.9 L (3.4-5.0) g/dL - Imaging Impressions Head CT 10/02/18 02:48 CONCLUSION: Negative CT Head non contrast. . Caprini VTE Risk Assessment Caprini VTE Risk Assessment: No/Low Risk (score <= 1) Caprini Risk Assessment Model: Point Value = 1 Point Value = 2 Point Value = 3 Point Value = 5 Age 41-60 Minor surgery BMI > 25 kg/m2 Swollen legs Varicose veins or History of unexplained or recurrent spontaneous Oral contraceptives or hormone replacement Sepsis (< 1 month) Serious lung disease, including pneumonia (< 1 month) Abnormal pulmonary function Acute myocardial infarction Congestive heart failure (< 1 month) History of inflammatory bowel disease Medical patient at bed rest Age 61-74 Arthroscopic surgery Major open surgery (> 45 min) Laparoscopic surgery (> 45 min) Malignancy Confined to bed (> 72 hours) Immobilizing plaster cast Central venous access Age >= 75 History of VTE Family history of VTE Factor V Leiden Prothrombin [id number] Lupus anticoagulant Anticardiolipin antibodies Elevated serum homocysteine Heparin-induced thrombocytopenia Other congenital or acquired thrombophilia Stroke (< 1 month) Elective arthroplasty Hip, pelvis, or leg fracture Acute spinal cord injury (< 1 month) Prophylaxis Regimen: Total Risk Factor Score Risk Level Prophylaxis Regimen 0-1 Low Early ambulation 2 Moderate Order ONE of the following: *Sequential Compression Device (SCD) *Heparin 5000 units SQ BID 3-4 Higher Order ONE of the following medications: *Heparin 5000 units SQ TID *Enoxaparin/Lovenox 40 mg SQ daily (WT < 150 kg, CrCl > 30 mL/min) *Enoxaparin/Lovenox 30 mg SQ daily (WT < 150 kg, CrCl > 10-29 mL/min) *Enoxaparin/Lovenox 30 mg SQ BID (WT < 150 kg, CrCl > 30 mL/min) AND/OR *Sequential Compression Device (SCD) 5 or more Highest Order ONE of the following medications: *Heparin 5000 units SQ TID (Preferred with Epidurals) *Enoxaparin/Lovenox 40 mg SQ daily (WT < 150 kg, CrCl > 30 mL/min) *Enoxaparin/Lovenox 30 mg SQ daily (WT < 150 kg, CrCl > 10-29 mL/min) *Enoxaparin/Lovenox 30 mg SQ BID (WT < 150 kg, CrCl > 30 mL/min) AND *Sequential Compression Device (SCD) Assessment and Plan - Assessment (1) Encephalopathy Code(s): G93.40 - Encephalopathy, unspecified Status: Acute (2) Opioid dependence Code(s): F11.20 - Opioid dependence, uncomplicated Status: Acute (3) UTI (urinary tract infection) Code(s): N39.0 - Urinary tract infection, site not specified Status: Acute (4) Open abdominal wall wound Code(s): S31.109A - Unspecified open wound of abdominal wall, unspecified quadrant without penetration into peritoneal cavity, initial encounter Status : Chronic (5) Foot fracture Code(s): S92.909A - Unspecified fracture of unspecified foot, initial encounter for closed fracture Status: Acute (6) LUI (acute kidney injury) Code(s): N17.9 - Acute kidney failure, unspecified Status: Acute - Plan A/P: 1. Encephalopathy: acute episode of bizarre behavior-putting purse in the microwave, likely multifactorial-acute UTI, underlying Psych disorder, possible opioid withdrawal and dehydration. CT Head w/ no acute findings, images reviewed. Neuro checks. IV Abx for UTI, IVF for hydration. Ativan prn for agitation/anxiety. Recent ER visit 09/29 for psych eval due to manic symptoms and hallucination-consult Psych for further eval. UDS pending. 2. Opioid Dependence: previous admit 09/20-09/24, found to have significant opioid dependence, weaned off meds and d/c'd w/ no opioids, tachycardic on arrival-possibly related to withdrawal. Ativan prn. 3. Abdominal Wall Infection: Chronic. Stable. Healing well 4. UTI: U/a w/ UTI from 09/29, cultures +ESBL E.Coli, had been on Macrobid previously, s/p Gent in ER, MICs reviewed, limited options for outpatient management, will Consult ID for further eval/recommendations regarding antibiotic regimen, especially in light of LUI-hold off on additional Gent until ID eval 5. LUI: Creatinine 1.25, previously 0.77 on 09/29/18, IVF for hydration, monitor I/O, repeat labs in am, caution w/ nephrotoxic agents. 6. Foot Fx: Left foot 2nd/3rd/4th toe fractures, s/p splint on previous ER visit, outpatient follow up w/ Dr. Truong as scheduled. 7. DVT Prophylaxis: SCD/Teds 8. Social work for d/c planning as needed. 9. Case discussed w/ ER physician at length, labs/records/imaging reviewed by me. (4) Open abdominal wall wound Qualifiers:
--- NOTE | 2018-10-02 05:32 | ED ---
HPI General Chief Complaint: Altered Mental Status Stated Complaint: Psy Time Seen by Provider: 10/02/18 02:43 Source: EMS Mode of arrival: EMS Limitations: altered mental status History of Present Illness HPI narrative: 52-year-old female was found wandering the streets. She was all confused and disheveled. No meaningful history obtained. A bystander called 911. Patient was brought in by EMS. She was tachycardic upon arrival. I had seen this patient 2 days ago. She was here for generalized pain complaint. She had an abdominal surgery a few weeks ago and [place]. She was admitted in this hospital and discharged 4-5 days back and her abdominal wound was healing with secondary intention. Related Data Home Medications Medication Instructions Recorded Confirmed amitriptyline 200 mg PO DAILY 09/20/18 10/02/18 baclofen 20 mg PO TID 09/20/18 10/02/18 levothyroxine 50 mcg PO DAILY 09/20/18 10/02/18 metoprolol tartrate 25 mg PO BID 09/20/18 10/02/18 [id number] 2 cap PO Q4H PRN 09/26/18 10/02/18 [Fioricet] pyridostigmine bromide 60 mg PO QID 09/26/18 10/02/18 sumatriptan succinate 100 mg PO Q2-4H PRN 09/26/18 10/02/18 fluticasone [Flonase Allergy 50 mg INTRANASAL DAILY 09/29/18 10/02/18 Relief] nitrofurantoin monohyd/m-cryst 100 mg PO BID 09/29/18 10/02/18 [Macrobid] Previous Rx's Medication Instructions Recorded pantoprazole 40 mg PO BID tab 09/24/18 prochlorperazine [Compazine] 25 mg RECTAL ONCE #1 each 09/26/18 Allergies Allergy/AdvReac Type Severity Reaction Status Date / Time adhesive Allergy Itching Verified 09/29/18 15:29 bee venom protein (honey bee) Allergy Unconscious Verified 09/26/18 01:15 cephalexin [From Keflex] Allergy Anaphylaxis Verified 09/26/18 01:15 codeine Allergy Itching Verified 09/26/18 01:15 ketorolac [From Toradol] Allergy Weakness Verified 09/26/18 02:14 Penicillins Allergy Itching Verified 09/26/18 01:15 Review of Systems ROS: all other systems reviewed are negative [facility] Medical History Medical History MDRO (multiple drug resistant organisms) resistance (Acute ~09/29/18) Bowel obstruction (Acute) Hypothyroidism (Acute) Migraine (Acute) Pulmonary embolism (Acute) TIA (transient ischemic attack) (Acute) Surgical History Surgical History H/O abdominal surgery (Acute) Social History Social History Substance History: No History of Abuse Second Hand Smoke Exposure: No Smoking Status: Never smoker How Often Do You Have a Drink Containing Alcohol: Never Immunization History Tetanus Immunization: >5 Years Exam Narrative Exam Narrative: GENERAL: Awake, confused, disheveled, no obvious distress SKIN: Focused skin assessment warm/dry. Disheveled. Anterior abdominal wall wound defect closing with secondary intention. HEAD: Atraumatic. Normocephalic. EYES: Pupils equal and round. No scleral icterus. No injection or drainage. ENT: No nasal bleeding or discharge. Mucous membranes pink and moist. NECK: Trachea midline. No JVD. CARDIOVASCULAR: Regular rate and rhythm. Tachycardia. No murmur appreciated. RESPIRATORY: No accessory muscle use. Clear to auscultation. Breath sounds equal bilaterally. GASTROINTESTINAL: Abdomen soft, non-tender, nondistended. Hepatic and splenic margins not palpable. MUSCULOSKELETAL: No obvious deformities. No clubbing. No cyanosis. No edema. NEUROLOGICAL: Confused, GCS of 14. No obvious cranial nerve deficits. Motor grossly within normal limits. Normal speech. PSYCHIATRIC: Appropriate mood and affect; insight and judgment normal. Course Initial Documented Vital Signs Temperature 98.6 F 10/02/18 03:25 Pulse Rate 123 H 10/02/18 03:25 Respiratory Rate 18 10/02/18 03:25 Blood Pressure 143/64 H 10/02/18 03:25 Pulse Oximetry 98 10/02/18 03:25 Last Documented Vital Signs Temperature 98.2 F 10/05/18 07:27 Pulse Rate 120 H 10/05/18 07:27 Respiratory Rate 17 10/05/18 04:00 Blood Pressure 122/64 10/05/18 07:27 Pulse Oximetry 98 10/05/18 07:27 Critical Care Time Critical Care Time: Yes Total Critical Care Time: 30 Attestation: Aggregate critical care time was 30 minutes. Time to perform other separately billable procedures was not included in the critical care time. My time did not include minutes spent treating any other patients simultaneously or on activities that did not directly contribute to the patient's treatment. The services I provided to this patient were to treat and/or prevent clinically significant deterioration that could result in: Altered mental status, possible urosepsis I provided critical care services requiring my management, as noted below: Chart data review, documentation time, medication orders and management, vital sign assessments/reviewing monitor data, ordering and reviewing lab tests, ordering and interpreting/reviewing x-rays and diagnostic studies, care of the patient and discussion of the patient with the admitting physicians. Medical Decision Making MDM Narrative Medical decision making narrative: 4:30 AM patient kept wandering out of the room. She was given IV Ativan 1 mg. Blood test results are back and white blood cell count is higher than 2 days back. Magnesium was low. I have ordered for replacement. Also the urine culture from 2 days back grew ESBL. Sensitive to gentamicin and I have ordered IV gentamicin since patient is allergic to penicillin. Her came in the room and told us that he had last seen her at 9:00 last night before going to work. He came back at 2.30 and noticed that she was gone. He found out just a little while back that she was in this emergency room and hence he is here he says that her mental status has progressively been worsening in terms of the confusion. I explained to him that she would require admission he understands. Medical Screen Exam Complete: Yes Emergency Medical Condition: Yes Lab Data Result diagrams: 10/04/18 16:02 10/04/18 16:02 Lab Results 10/02/18 10/02/18 10/02/18 Range/Units 03:20 03:20 03:20 WBC 13.0 H (4.0-11.0) th/mm3 RBC 3.83 L (4.00-5.30) mil/mm3 Hgb 11.8 (11.6-15.3) gm/dL Hct 36.5 (35.0-46.0) % MCV 95.3 (80.0-100.0) fL MCH 30.8 (27.0-34.0) pg MCHC 32.3 (32.0-36.0) % RDW 15.7 (11.6-17.2) % Plt Count 387 (150-450) th/mm3 MPV 9.7 (7.0-11.0) fL Neut % (Auto) 86.4 H (16.0-70.0) % Lymph % (Auto) 6.3 L (9.0-44.0) % [place] % (Auto) 6.2 (0.0-8.0) % Eos % (Auto) 0.1 (0.0-4.0) % Baso % (Auto) 1.0 (0.0-2.0) % Neut # (Auto) 11.3 H (1.8-7.7) th/mm3 Lymph # (Auto) 0.8 L (1.0-4.8) th/mm3 [place] # (Auto) 0.8 (0.0-0.9) th/mm3 Eos # (Auto) 0.0 (0.0-0.4) th/mm3 Baso # (Auto) 0.1 (0.0-0.2) th/mm3 WBC Differential . Differential Comment Auto diff final PT 10.5 (9.8-11.6) sec INR 1.0 Ratio Sodium 145 (136-145) meq/L Potassium 3.5 (3.5-5.1) meq/L Chloride 108 H (98-107) meq/L Carbon Dioxide 21.3 (21.0-32.0) meq/L Anion Gap 16 H (5-15) meq/L BUN 18 (7-18) mg/dL Creatinine 1.25 H (0.50-1.00) mg/dL Estimated GFR 45 L (>89) mL/min POC Glucose (68-110) mg/dl Random Glucose 80 (74-106) mg/dL Calcium 8.1 L (8.5-10.1) mg/dL Prot Corrected Calcium (8.5-10.1) mg/dL Magnesium 1.4 L (1.5-2.5) mg/dL Total Bilirubin 0.3 (0.2-1.0) mg/dL AST 31 (15-37) U/L ALT 20 (10-53) U/L Alkaline Phosphatase 129 H (45-117) U/L Troponin I Less than 0.02 L (0.02-0.05) ng/mL Total Protein 8.0 D (6.4-8.2) g/dL Albumin 2.9 L (3.4-5.0) g/dL TSH 0.677 (0.358-3.740) uIU/mL Urine Color (Yellw/Straw) Urine Clarity (Clear) Urine pH (5.0-8.5) Ur Specific Omar (1.002-1.035) Urine Protein (Neg-Trace) mg/dL Urine Glucose (UA) (Negative) mg/dL Urine Ketones (Negative) mg/dL Urine Occult Blood (Negative) Urine Nitrate (Negative) Urine Bilirubin (Negative) Urine Urobilinogen (Less than 2) mg/dL Ur Leukocyte Esterase (Negative) Urine RBC (0-3) /hpf Urine WBC (0-5) /hpf Ur Squamous Epith Cells (0-5) /hpf Hyaline Casts (0-3) /lpf Waxy Casts (None) /lpf Urine Mucus (Occasional) /lpf Micro UA Comment Ur Microscopic Review Urine Culture Comments Urine Opiates Screen (Neg) Ur Barbiturates Screen (Neg) Ur Amphetamines Screen (Neg) U Benzodiazepines Scrn (Neg) Urine Cocaine Screen (Neg) U Cannabinoids Screen (Neg) Serum Alcohol Less than 3 (0-5) mg/dL 10/02/18 10/02/18 10/02/18 Range/Units 05:40 05:40 15:19 WBC (4.0-11.0) th/mm3 RBC (4.00-5.30) mil/mm3 Hgb (11.6-15.3) gm/dL Hct (35.0-46.0) % MCV (80.0-100.0) fL MCH (27.0-34.0) pg MCHC (32.0-36.0) % RDW (11.6-17.2) % Plt Count (150-450) th/mm3 MPV (7.0-11.0) fL Neut % (Auto) (16.0-70.0) % Lymph % (Auto) (9.0-44.0) % [place] % (Auto) (0.0-8.0) % Eos % (Auto) (0.0-4.0) % Baso % (Auto) (0.0-2.0) % Neut # (Auto) (1.8-7.7) th/mm3 Lymph # (Auto) (1.0-4.8) th/mm3 [place] # (Auto) (0.0-0.9) th/mm3 Eos # (Auto) (0.0-0.4) th/mm3 Baso # (Auto) (0.0-0.2) th/mm3 WBC Differential Differential Comment PT (9.8-11.6) sec INR Ratio Sodium (136-145) meq/L Potassium (3.5-5.1) meq/L Chloride (98-107) meq/L Carbon Dioxide (21.0-32.0) meq/L Anion Gap (5-15) meq/L BUN (7-18) mg/dL Creatinine (0.50-1.00) mg/dL Estimated GFR (>89) mL/min POC Glucose 122 H (68-110) mg/dl Random Glucose (74-106) mg/dL Calcium (8.5-10.1) mg/dL Prot Corrected Calcium (8.5-10.1) mg/dL Magnesium (1.5-2.5) mg/dL Total Bilirubin (0.2-1.0) mg/dL AST (15-37) U/L ALT (10-53) U/L Alkaline Phosphatase (45-117) U/L Troponin I (0.02-0.05) ng/mL Total Protein (6.4-8.2) g/dL Albumin (3.4-5.0) g/dL TSH (0.358-3.740) uIU/mL Urine Color Yellow (Yellw/Straw) Urine Clarity Hazy H (Clear) Urine pH 5.0 (5.0-8.5) Ur Specific Omar 1.017 (1.002-1.035) Urine Protein Negative (Neg-Trace) mg/dL Urine Glucose (UA) Negative (Negative) mg/dL Urine Ketones 20 (Negative) mg/dL Urine Occult Blood Negative (Negative) Urine Nitrate Negative (Negative) Urine Bilirubin Negative (Negative) Urine Urobilinogen Less than 2 (Less than 2) mg/dL Ur Leukocyte Esterase Trace H (Negative) Urine RBC Less than 1 (0-3) /hpf Urine WBC 3 (0-5) /hpf Ur Squamous Epith Cells 2 (0-5) /hpf Hyaline Casts 16 (0-3) /lpf Waxy Casts 1 (None) /lpf Urine Mucus Few H (Occasional) /lpf Micro UA Comment Cath-culture not ind Ur Microscopic Review Not Reportable Urine Culture Comments Cath-cult not ind Urine Opiates Screen Neg (Neg) Ur Barbiturates Screen Pos H (Neg) Ur Amphetamines Screen Neg (Neg) U Benzodiazepines Scrn Neg (Neg) Urine Cocaine Screen Neg (Neg) U Cannabinoids Screen Neg (Neg) Serum Alcohol (0-5) mg/dL 10/03/18 10/03/18 10/04/18 Range/Units 04:26 04:26 14:07 WBC 9.3 (4.0-11.0) th/mm3 RBC 3.57 L (4.00-5.30) mil/mm3 Hgb 11.2 L (11.6-15.3) gm/dL Hct 34.3 L (35.0-46.0) % MCV 96.1 (80.0-100.0) fL MCH 31.4 (27.0-34.0) pg MCHC 32.7 (32.0-36.0) % RDW 16.1 (11.6-17.2) % Plt Count 327 (150-450) th/mm3 MPV 9.8 (7.0-11.0) fL Neut % (Auto) 68.7 (16.0-70.0) % Lymph % (Auto) 16.9 (9.0-44.0) % [place] % (Auto) 9.5 H (0.0-8.0) % Eos % (Auto) 2.2 (0.0-4.0) % Baso % (Auto) 2.7 H (0.0-2.0) % Neut # (Auto) 6.4 (1.8-7.7) th/mm3 Lymph # (Auto) 1.6 (1.0-4.8) th/mm3 [place] # (Auto) 0.9 (0.0-0.9) th/mm3 Eos # (Auto) 0.2 (0.0-0.4) th/mm3 Baso # (Auto) 0.2 (0.0-0.2) th/mm3 WBC Differential . Differential Comment Auto diff final PT (9.8-11.6) sec INR Ratio Sodium 144 (136-145) meq/L Potassium 3.9 (3.5-5.1) meq/L Chloride 108 H (98-107) meq/L Carbon Dioxide 22.8 (21.0-32.0) meq/L Anion Gap 13 (5-15) meq/L BUN 13 (7-18) mg/dL Creatinine 0.72 (0.50-1.00) mg/dL Estimated GFR 85 L (>89) mL/min POC Glucose 107 (68-110) mg/dl Random Glucose 72 L (74-106) mg/dL Calcium 7.6 L (8.5-10.1) mg/dL Prot Corrected Calcium (8.5-10.1) mg/dL Magnesium (1.5-2.5) mg/dL Total Bilirubin 0.4 (0.2-1.0) mg/dL AST 30 (15-37) U/L ALT 19 (10-53) U/L Alkaline Phosphatase 114 (45-117) U/L Troponin I (0.02-0.05) ng/mL Total Protein 7.0 D (6.4-8.2) g/dL Albumin 2.5 L (3.4-5.0) g/dL TSH (0.358-3.740) uIU/mL Urine Color (Yellw/Straw) Urine Clarity (Clear) Urine pH (5.0-8.5) Ur Specific Omar (1.002-1.035) Urine Protein (Neg-Trace) mg/dL Urine Glucose (UA) (Negative) mg/dL Urine Ketones (Negative) mg/dL Urine Occult Blood (Negative) Urine Nitrate (Negative) Urine Bilirubin (Negative) Urine Urobilinogen (Less than 2) mg/dL Ur Leukocyte Esterase (Negative) Urine RBC (0-3) /hpf Urine WBC (0-5) /hpf Ur Squamous Epith Cells (0-5) /hpf Hyaline Casts (0-3) /lpf Waxy Casts (None) /lpf Urine Mucus (Occasional) /lpf Micro UA Comment Ur Microscopic Review Urine Culture Comments Urine Opiates Screen (Neg) Ur Barbiturates Screen (Neg) Ur Amphetamines Screen (Neg) U Benzodiazepines Scrn (Neg) Urine Cocaine Screen (Neg) U Cannabinoids Screen (Neg) Serum Alcohol (0-5) mg/dL 10/04/18 10/04/18 Range/Units 16:02 16:02 WBC 6.4 (4.0-11.0) th/mm3 RBC 2.95 L (4.00-5.30) mil/mm3 Hgb 9.5 L (11.6-15.3) gm/dL Hct 28.4 L (35.0-46.0) % MCV 96.2 (80.0-100.0) fL MCH 32.4 (27.0-34.0) pg MCHC 33.7 (32.0-36.0) % RDW 16.2 (11.6-17.2) % Plt Count 308 (150-450) th/mm3 MPV 9.6 (7.0-11.0) fL Neut % (Auto) 70.5 H (16.0-70.0) % Lymph % (Auto) 19.3 (9.0-44.0) % [place] % (Auto) 8.6 H (0.0-8.0) % Eos % (Auto) 0.2 (0.0-4.0) % Baso % (Auto) 1.4 (0.0-2.0) % Neut # (Auto) 4.5 (1.8-7.7) th/mm3 Lymph # (Auto) 1.2 (1.0-4.8) th/mm3 [place] # (Auto) 0.5 (0.0-0.9) th/mm3 Eos # (Auto) 0.0 (0.0-0.4) th/mm3 Baso # (Auto) 0.1 (0.0-0.2) th/mm3 WBC Differential . Differential Comment Auto diff final PT (9.8-11.6) sec INR Ratio Sodium 143 (136-145) meq/L Potassium 2.8 L* D (3.5-5.1) meq/L Chloride 109 H (98-107) meq/L Carbon Dioxide 23.4 (21.0-32.0) meq/L Anion Gap 11 (5-15) meq/L BUN 8 (7-18) mg/dL Creatinine 0.47 L (0.50-1.00) mg/dL Estimated GFR Greater than 89 (>89) mL/min POC Glucose (68-110) mg/dl Random Glucose 88 (74-106) mg/dL Calcium 7.2 L* (8.5-10.1) mg/dL Prot Corrected Calcium 7.8 L (8.5-10.1) mg/dL Magnesium (1.5-2.5) mg/dL Total Bilirubin 0.2 (0.2-1.0) mg/dL AST 16 (15-37) U/L ALT 16 (10-53) U/L Alkaline Phosphatase 93 (45-117) U/L Troponin I (0.02-0.05) ng/mL Total Protein 6.0 L D (6.4-8.2) g/dL Albumin 2.1 L (3.4-5.0) g/dL TSH (0.358-3.740) uIU/mL Urine Color (Yellw/Straw) Urine Clarity (Clear) Urine pH (5.0-8.5) Ur Specific Omar (1.002-1.035) Urine Protein (Neg-Trace) mg/dL Urine Glucose (UA) (Negative) mg/dL Urine Ketones (Negative) mg/dL Urine Occult Blood (Negative) Urine Nitrate (Negative) Urine Bilirubin (Negative) Urine Urobilinogen (Less than 2) mg/dL Ur Leukocyte Esterase (Negative) Urine RBC (0-3) /hpf Urine WBC (0-5) /hpf Ur Squamous Epith Cells (0-5) /hpf Hyaline Casts (0-3) /lpf Waxy Casts (None) /lpf Urine Mucus (Occasional) /lpf Micro UA Comment Ur Microscopic Review Urine Culture Comments Urine Opiates Screen (Neg) Ur Barbiturates Screen (Neg) Ur Amphetamines Screen (Neg) U Benzodiazepines Scrn (Neg) Urine Cocaine Screen (Neg) U Cannabinoids Screen (Neg) Serum Alcohol (0-5) mg/dL Imaging Data Radiologist's impression: Head CT 10/02/18 02:48 CONCLUSION: Negative CT Head non contrast. . Head CT 10/04/18 14:25 CONCLUSION: 1. No acute intracranial abnormality. . Chest X-Ray 10/04/18 14:26 CONCLUSION: No acute abnormality is seen. ECG Data Attestation: I personally reviewed and interpreted this ECG as follows: Interpretation: Twelve-lead EKG was reviewed by me. Normal sinus rhythm, normal axis, nonspecific ST-T wave changes, tachycardia. Heart rate of 121 bpm Discharge Plan Discharge Disposition Patient Disposition: 30 Still Patient Physicians Team ED Provider: Nikki Nielson Primary Care Provider: Primary Care Allie Yeboah Attending Provider: Pushpa Estrada Other Providers: Raul Le ; Danyel Stone ; Neha Gómez ; Terry Almanzar Status ED Status: Left Department Discharge Information Discharge Date/Time: 10/02/18 06:11
[2018-10-02 06:14] LABS: Amphetamine Screen,Urine Neg (Neg); Barbiturate Screen,Urine Pos (Neg); Cannabinoid Screen,Urine Neg (Neg); Cocaine Screen,Urine Neg (Neg)
[2018-10-02 06:17] LABS: Bilirubin,Urine Negative (Negative); Clarity,Urine Hazy (Clear); Color,Urine Yellow (Yellw/Straw); Glucose,Urine (UA) Negative (Negative); Hyaline Casts,Urine 16 /lpf (0-3); Leukocyte Esterase,Urine Trace (Negative); Mucus,Urine Few /lpf (Occasional); Nitrite,Urine Negative (Negative); Specific Gravity,Urine 1.017 (1.002-1.035); Squamous Epithelial Cell,Urine 2 /hpf (0-5)
[2018-10-02 06:20] LABS: Opiate Screen,Urine Neg (Neg)
[2018-10-02] MEDS: Sod Chloride 0.9% Inj 1,000 ML IV.CONT SCH ×2 (06:28→16:02)
[2018-10-02] MEDS: Senna/Docusate Sodium 8.6/50 MG Tablet PO SCH ×2 (10:07→21:18)
--- NOTE | 2018-10-02 12:12 | ECG ---
Date Performed: 10/02/2018 Time Performed: 03:45:22 PTAGE: 52 years EKG: SINUS TACHYCARDIA WITH OCCASIONAL VENTRICULAR PREMATURE COMPLEXES NONSPECIFIC T-WAVE ABNORM ALITY ABNORMAL RHYTHM ECG NO PREVIOUS TRACING DOCTOR: Lul Ibarra Interpretating Date/Time 10/02/2018 12:07:44
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
--- NOTE | 2018-10-02 14:59 | MB ---
cc: Raul Le MD, Camille MD DATE: 10/02/2018 REQUESTING PHYSICIAN: Mattie Grant MD. REASON FOR VISIT: Urinary tract infection, extended-spectrum beta-lactamase, antibiotic recommendation. HISTORY OF PRESENT ILLNESS: This is a 52-year-old white female, who presented to the emergency department with altered mental status. She was recently seen in the hospital and urine culture was taken and came back with extended-spectrum beta-lactamase Escherichia coli. She was put on Macrobid before the final report of the urine culture became available. The Macrobid was given during an emergency evaluation on 09/29/2018. She had presented with psychiatric symptoms and was felt to be manic. She was noted to have bipolar disorder. Her urine culture came back showing ESBL Escherichia coli and that is the reason why this consultation is requested. The patient currently sitting up in a chair. She is awake and alert. She tells me that she gets occasional chills. She does not seem to be confused currently. She is afebrile. Her white blood cell count is elevated at 13.0. Blood culture taken were taken today. This consultation was requested because of the positive urine culture with resistant bacteria. PAST MEDICAL HISTORY: Hypothyroidism, migraines, pulmonary embolism, TIA, and bowel obstruction. PAST SURGICAL HISTORY: Abdominal surgery for fistula. ALLERGIES: CEPHALEXIN, CODEINE, KETOROLAC, PENICILLIN, ADHESIVE, . MEDICATIONS: 1. Dulcolax. 2. Lin-Colace. 3. Sodium chloride. 4. Gentamicin. One dose of gentamicin was given. SOCIAL HISTORY: The patient is . No tobacco. No alcohol. No history of illicit drug use. FAMILY HISTORY: Noncontributory. REVIEW OF SYSTEMS: Significant for dysuria, urinary frequency, and chills. Otherwise, negative on a 10-point review. PHYSICAL EXAMINATION: GENERAL: She is a well-developed female, who is in no acute distress. She is awake and alert and oriented. VITAL SIGNS: Temperature 97.4, BP 115/63, respirations 16, heart rate 104. HEENT: Head is atraumatic. Extraocular movements are grossly intact. Pupils reactive to light. No icterus. Oropharynx moist mucosa without visible lesions. NECK: Supple. No adenopathy. LUNGS: Slight rhonchi at the bases. HEART: Regular S1 and S2, without audible murmurs, rubs or gallops. ABDOMEN: Bowel sounds present. Soft, midabdominal ulcerated wound is superficial and has good granulation tissue. No visible erythema. RECTAL: Not performed. EXTREMITIES: No clubbing or cyanosis. The left leg is wrapped in a surgical splint and a surgical dressing. SKIN: No diffuse rash. NEUROLOGIC: Nonfocal. PSYCHIATRIC: The patient is calm and cooperative. LABORATORY DATA: WBC is 15.0, platelets 387, creatinine 1.25. Estimated GFR 45. Sodium 145. ASSESSMENT: 1. Urinary tract infection due to extended-spectrum beta-lactamase Escherichia coli. 2. Acute kidney disease. The patient does have a GFR of 45. Previous estimated GFR on 09/24/2018 was 89. 3. Possible early sepsis. Heart rate is 104, along with elevated white count and urinary tract infection. RECOMMENDATIONS: 1. Begin ertapenem. 2. Monitor the kidney function. 3. Get a urine culture in a couple of days to check for response to antibiotic. 4. Monitor white blood cell count. Thank you for the consultation. The patient's progress will be monitored and further recommendations will be given upon followup. MD CIARA Allen/em , 12:57 PM , 01:10 PM
[2018-10-02] MEDS: Metoprolol Tartrate 25 MG Tablet PO SCH (21:17)
[2018-10-03] MEDS: Sod Chloride 0.9% Inj 1,000 ML IV.CONT SCH ×3 (00:41→20:02)
[2018-10-03 05:15] LABS: Baso # (Auto) 0.2 th/mm3 (0.0-0.2); Baso % (Auto) 2.7 % (0.0-2.0); Eos # (Auto) 0.2 th/mm3 (0.0-0.4); Eos % (Auto) 2.2 % (0.0-4.0); Hematocrit 34.3 % (35.0-46.0); Hemoglobin 11.2 gm/dL (11.6-15.3); Lymph # (Auto) 1.6 th/mm3 (1.0-4.8); Lymph % (Auto) 16.9 % (9.0-44.0); Mean Corpuscular HGB Conc 32.7 % (32.0-36.0); Mean Corpuscular Hemoglobin 31.4 pg (27.0-34.0); Mean Corpuscular Volume 96.1 fL (80.0-100.0); Mean Platelet Volume 9.8 fL (7.0-11.0); Mono # (Auto) 0.9 th/mm3 (0.0-0.9); Mono % (Auto) 9.5 % (0.0-8.0); Neut # (Auto) 6.4 th/mm3 (1.8-7.7); Neut % (Auto) 68.7 % (16.0-70.0); Platelet Count 327 th/mm3 (150-450); Red Blood Count 3.57 mil/mm3 (4.00-5.30); Red Cell Distribution Width 16.1 % (11.6-17.2); White Blood Count 9.3 th/mm3 (4.0-11.0)
[2018-10-03 05:23] LABS: Alanine Aminotransferase 19 U/L (10-53); Albumin 2.5 g/dL (3.4-5.0); Anion Gap 13 meq/L (5-15); Aspartate Aminotransferase 30 U/L (15-37); Blood Urea Nitrogen 13 mg/dL (7-18); Calcium 7.6 mg/dL (8.5-10.1); Carbon Dioxide 22.8 meq/L (21.0-32.0); Chloride 108 meq/L (98-107); Glomerular Filtration Rate 85 mL/min (>89); Glucose,Random 72 mg/dL (74-106); Potassium 3.9 meq/L (3.5-5.1)
[2018-10-03 05:25] LABS: Alkaline Phosphatase 114 U/L (45-117)
[2018-10-03 05:28] LABS: Sodium 144 meq/L (136-145)
[2018-10-03] MEDS: Metoprolol Tartrate 25 MG Tablet PO SCH ×2 (09:48→20:03)
[2018-10-03] MEDS: Senna/Docusate Sodium 8.6/50 MG Tablet PO SCH ×2 (09:48→20:04)
--- NOTE | 2018-10-03 10:56 | P.PN ---
Subjective Interval history: More awake and alert In bed says she feesl very tired. No fever or chills overnight Has abd wound no pain No n/v/d/c Physical Exam Vital signs: Vital Signs 10/02/18 12:00 10/02/18 16:00 10/02/18 19:59 Temperature 98.3 F 97.5 F L 98.3 F Pulse Rate 122 H 121 H 130 H Respiratory Rate 18 18 18 Blood Pressure 154/70 H 126/70 120/56 L Pulse Oximetry 97 100 98 10/02/18 20:00 10/03/18 00:00 10/03/18 00:05 Temperature 98.3 F Pulse Rate 132 H 108 H 101 H Respiratory Rate 16 Blood Pressure 134/79 Pulse Oximetry 98 10/03/18 04:00 10/03/18 08:00 Temperature 99.1 F 97.3 F L Pulse Rate 108 H 112 H Respiratory Rate 16 16 Blood Pressure 137/69 133/65 Pulse Oximetry 100 100 Intake & Output 10/02/18 10/03/18 10/03/18 18:59 06:59 18:59 Intake Total 1808 / 1808 1000 / 1000 Balance 1808 / 1808 1000 / 1000 Weight 58.5 kg Intake: IV 1100 / 1100 1000 / 1000 NS Inj 1,000 ML @ 100 mls/hr IV 1000 / 1000 1000 / 1000 .CONT .Q10H [facility] Rx#:[id number] INVanz Inj 1,000 MG In NS Inj 100 / 100 100 ML @ 200 mls/hr IV.SIG Q24H [facility] Rx#:[id number] Oral 708 / 708 Other: # Voids 6 # Incontinent Voids 2 Narrative: GENERAL: Middle-aged white female in no acute distress, mildly anxious but calm/ pleasant. at bedside. SKIN: Abd open wound with granulation tissue healing. Focused skin assessment warm and dry. HEENT: PERRLA, EOMI. No scleral icterus or conjunctival pallor. No lid lag or facial droop. CARDIOVASCULAR: Regular rate and rhythm. No obvious murmurs to auscultation. No chest tenderness to palpation. RESPIRATORY: No obvious rhonchi or wheezing. Clear to auscultation. Breath sounds equal bilaterally. GASTROINTESTINAL: Abdomen soft, non-tender, nondistended. BS normal. Abdominal wound open, chronic, appears unchanged, no signs of infection. MUSCULOSKELETAL: Extremities without clubbing, cyanosis, or edema. No obvious deformities. NEUROLOGICAL: Awake, alert, confused, anxious. No focal neurologic deficits. Moving both upper and lower extremities spontaneously. PSYCHIATRIC: Appropriate mood and affect. Insight and judgment normal. - Urinary Catheter Management Straight Cath placed during this visit: yes Reason for continuing: Not indwelling catheter Insertion date: 10/02/18 Insertion time: 05:40 Results - Labs CBC & Chem 7: 10/03/18 04:26 10/03/18 04:26 Laboratory Results - last 24 hr 10/02/18 10/03/18 10/03/18 15:19 04:26 04:26 WBC 9.3 RBC 3.57 L Hgb 11.2 L Hct 34.3 L MCV 96.1 MCH 31.4 MCHC 32.7 RDW 16.1 Plt Count 327 MPV 9.8 Neut % (Auto) 68.7 Lymph % (Auto) 16.9 [place] % (Auto) 9.5 H Eos % (Auto) 2.2 Baso % (Auto) 2.7 H Neut # (Auto) 6.4 Lymph # (Auto) 1.6 [place] # (Auto) 0.9 Eos # (Auto) 0.2 Baso # (Auto) 0.2 WBC Differential . Differential Comment Auto diff final Sodium 144 Potassium 3.9 Chloride 108 H Carbon Dioxide 22.8 Anion Gap 13 BUN 13 Creatinine 0.72 Estimated GFR 85 L POC Glucose 122 H Random Glucose 72 L Calcium 7.6 L Total Bilirubin 0.4 AST 30 ALT 19 Alkaline Phosphatase 114 Total Protein 7.0 D Albumin 2.5 L Assessment and Plan - Assessment (1) Encephalopathy Code(s): G93.40 - Encephalopathy, unspecified Status: Acute (2) Opioid dependence Code(s): F11.20 - Opioid dependence, uncomplicated Status: Acute (3) UTI (urinary tract infection) Code(s): N39.0 - Urinary tract infection, site not specified Status: Acute (4) Open abdominal wall wound Code(s): S31.109A - Unspecified open wound of abdominal wall, unspecified quadrant without penetration into peritoneal cavity, initial encounter Status : Chronic (5) Foot fracture Code(s): S92.909A - Unspecified fracture of unspecified foot, initial encounter for closed fracture Status: Acute (6) LUI (acute kidney injury) Code(s): N17.9 - Acute kidney failure, unspecified Status: Acute - Plan Encephalopathy: acute episode of bizarre behavior-putting purse in the microwave, likely multifactorial-acute UTI, underlying Psych disorder, possible opioid withdrawal and dehydration. CT Head w/ no acute findings, images reviewed. Neuro checks. IV Abx for UTI, IVF for hydration. Ativan prn for agitation/anxiety. Recent ER visit 09/29 for psych eval due to manic symptoms and hallucination-consult Psych for further eval. Seen by psych not an indication for IP psych hospitalization UDS pending. Opioid Dependence: previous admit 09/20-09/24, found to have significant opioid dependence, weaned off meds and d/c'd w/ no opioids, tachycardic on arrival- possibly related to withdrawal. Ativan prn. Abdominal Wall Infection: Chronic. Stable. Healing well UTI: U/a w/ UTI from 09/29, cultures +ESBL E.Coli, had been on Macrobid previously, s/p Gent in ER, MICs reviewed, limited options for outpatient management, will Consult ID for further eval/recommendations regarding antibiotic regimen, especially in light of LUI Seen by ID specialist Dr Le appreciate recs, IV abx Ertapenem. Plan to repeat urine cx on 10/05 U cx , blood cx pending./ Obtain abd wound cx and consult wound care for eval LUI: Creatinine 1.25, previously 0.77 on 09/29/18, IVF for hydration, monitor I/ O, repeat labs in am, caution w/ nephrotoxic agents. Foot Fx: Left foot 2nd/3rd/4th toe fractures, s/p splint on previous ER visit, outpatient follow up w/ Dr. Truong as scheduled. DVT Prophylaxis: SCD/Teds Social work for d/c planning as needed. Case discussed w/ ER physician at length, labs/records/imaging reviewed by me. (4) Open abdominal wall wound Qualifiers:
[2018-10-04] MEDS ORDERED: Metoprolol Tartrate 25 MG Tablet PO ONE (04:31)
[2018-10-04] MEDS: Sod Chloride 0.9% Inj 1,000 ML IV.CONT SCH ×2 (06:32→18:31)
[2018-10-04] MEDS: Metoprolol Tartrate 25 MG Tablet PO SCH ×2 (08:21→20:29)
[2018-10-04] MEDS: Senna/Docusate Sodium 8.6/50 MG Tablet PO SCH ×2 (08:21→20:29)
--- NOTE | 2018-10-04 10:36 | P.PN ---
Subjective Interval history: The patient is in bed. She does not have any pain at this time. No fever or chills overnight. No nausea or vomiting. She is eating fairly well. Patient is not compliant with her weightbearing. Her other spatial scientist was consulted for further recommendations. Physical Exam Vital signs: Vital Signs 10/03/18 12:00 10/03/18 15:22 10/03/18 16:00 Temperature 97.4 F L 98.7 F Pulse Rate 98 H 108 H 118 H Respiratory Rate 17 20 Blood Pressure 138/71 125/74 Pulse Oximetry 100 96 10/03/18 19:23 10/03/18 20:03 10/03/18 23:51 Temperature 97.3 F L Pulse Rate 133 H 114 H 138 H Respiratory Rate 18 Blood Pressure 142/76 H Pulse Oximetry 97 10/04/18 00:00 10/04/18 03:54 10/04/18 04:00 Temperature 98.5 F 98.6 F Pulse Rate 124 H 118 H 119 H Respiratory Rate 20 16 Blood Pressure 135/68 118/57 L Pulse Oximetry 96 99 10/04/18 08:00 10/04/18 09:00 Temperature 97.4 F L Pulse Rate 115 H 117 H Respiratory Rate 16 Blood Pressure 128/58 L Pulse Oximetry 96 Intake & Output 10/03/18 10/04/18 10/04/18 18:59 06:59 18:59 Intake Total 1100 / 1100 2480 / 2480 Balance 1100 / 1100 2480 / 2480 Weight 58.3 kg Intake: IV 1100 / 1100 1999 / 1999 NS Inj 1,000 ML @ 100 mls/hr IV 1000 / 1000 1999 / 1999 .CONT .Q10H MARIELLA Rx#:[id number] INVanz Inj 1,000 MG In NS Inj 100 / 100 100 ML @ 200 mls/hr IV.SIG Q24H MARIELLA Rx#:[id number] Oral 480 / 480 Other: # Voids 7 # Urine Diapers 3 Date of Last Bowel Movement 10/02/18 10/04/18 # Bowel Movements 7 Narrative: GENERAL: Middle-aged white female in no acute distress SKIN: Abd open wound with granulation tissue healing. Focused skin assessment warm and dry. CARDIOVASCULAR: Regular rate and rhythm. No obvious murmurs to auscultation. No chest tenderness to palpation. RESPIRATORY: No obvious rhonchi or wheezing. Clear to auscultation. Breath sounds equal bilaterally. GASTROINTESTINAL: Abdomen soft, non-tender, nondistended. BS normal. Abdominal wound open, chronic, appears unchanged, no signs of infection. MUSCULOSKELETAL: Extremities without clubbing, cyanosis, or edema. No obvious deformities. NEUROLOGICAL: Awake, alert, confused, anxious. No focal neurologic deficits. Moving both upper and lower extremities spontaneously. - Urinary Catheter Management Straight Cath placed during this visit: yes Reason for continuing: Not indwelling catheter Insertion date: 10/02/18 Insertion time: 05:40 Results - Labs CBC & Chem 7: 10/03/18 04:26 10/03/18 04:26 Microbiology 10/03/18 11:27 Wound - Abdominal Gram Stain - Final 10/02/18 03:15 Blood - Peripheral Aerobic Blood Culture - Preliminary No growth in 1 day 10/02/18 03:15 Blood - Peripheral Anaerobic Blood Culture - Preliminary No growth in 1 day 10/02/18 03:20 Blood - Peripheral Aerobic Blood Culture - Preliminary No growth in 1 day 10/02/18 03:20 Blood - Peripheral Anaerobic Blood Culture - Preliminary No growth in 1 day Assessment and Plan - Assessment (1) Encephalopathy Code(s): G93.40 - Encephalopathy, unspecified Status: Acute (2) Opioid dependence Code(s): F11.20 - Opioid dependence, uncomplicated Status: Acute (3) UTI (urinary tract infection) Code(s): N39.0 - Urinary tract infection, site not specified Status: Acute (4) Open abdominal wall wound Code(s): S31.109A - Unspecified open wound of abdominal wall, unspecified quadrant without penetration into peritoneal cavity, initial encounter Status : Chronic (5) Foot fracture Code(s): S92.909A - Unspecified fracture of unspecified foot, initial encounter for closed fracture Status: Acute (6) LUI (acute kidney injury) Code(s): N17.9 - Acute kidney failure, unspecified Status: Acute - Plan Encephalopathy: acute episode of bizarre behavior-putting purse in the microwave, likely multifactorial-acute UTI, underlying Psych disorder, possible opioid withdrawal and dehydration. CT Head w/ no acute findings, images reviewed. Neuro checks. IV Abx for UTI, IVF for hydration. Ativan prn for agitation/anxiety. Recent ER visit 09/29 for psych eval due to manic symptoms and hallucination-consult Psych for further eval. Seen by psych not an indication for IP psych hospitalization UDS pending. Opioid Dependence: previous admit 09/20-09/24, found to have significant opioid dependence, weaned off meds and d/c'd w/ no opioids, tachycardic on arrival- possibly related to withdrawal. Ativan prn. Abdominal Wall Infection: Chronic. Stable. Healing well UTI: U/a w/ UTI from 09/29, cultures +ESBL E.Coli, had been on Macrobid previously, s/p Gent in ER, MICs reviewed, limited options for outpatient management, will Consult ID for further eval/recommendations regarding antibiotic regimen, especially in light of LUI Seen by ID specialist Dr Le appreciate recs, IV abx Ertapenem. Plan to repeat urine cx on 10/05 U cx , blood cx pending./ Obtain abd wound cx and consult wound care for eval LUI: Creatinine 1.25, previously 0.77 on 09/29/18, IVF for hydration, monitor I/ O, repeat labs in am, caution w/ nephrotoxic agents. Foot Fx: Left foot 2nd/3rd/4th toe fractures, s/p splint on previous ER visit, consult Dr. Truong as patient is not compliant with weightbearing DVT Prophylaxis: SCD/Teds Social work for d/c planning as needed. Discussed with the patient, nurse discharge plan Discharge plan not ready for discharge needs clearance from infectious disease. Will need to repeat urine cultures per infectious disease recommendations. Also other spatial scientist consulted as patient is not compliant with weightbearing for further recommendations (4) Open abdominal wall wound Qualifiers:
--- NOTE | 2018-10-04 14:41 | P.PN ---
Subjective Interval history: Patient noted unresponsive. Family at bedside was feeding patient when she became unresponsive. POss patient aspirated. Patient was suctioned at bedside by the nurse. Patient is more awake and alert. No seizure witnessed. However she is alert by name and date of . Says she is in [place]. Denies any chest pain or shortness of breath. Blood pressure is into higher side. Saturating well on room air. Does not appear short of breath at this time. Heart rate is in 130s Physical Exam Vital signs: Vital Signs 10/03/18 15:22 10/03/18 16:00 10/03/18 19:23 Temperature 98.7 F 97.3 F L Pulse Rate 108 H 118 H 133 H Respiratory Rate 20 18 Blood Pressure 125/74 142/76 H Pulse Oximetry 96 97 10/03/18 20:03 10/03/18 23:51 10/04/18 00:00 Temperature 98.5 F Pulse Rate 114 H 138 H 124 H Respiratory Rate 20 Blood Pressure 135/68 Pulse Oximetry 96 10/04/18 03:54 10/04/18 04:00 10/04/18 08:00 Temperature 98.6 F 97.4 F L Pulse Rate 118 H 119 H 115 H Respiratory Rate 16 16 Blood Pressure 118/57 L 128/58 L Pulse Oximetry 99 96 10/04/18 09:00 10/04/18 12:00 10/04/18 14:27 Temperature 98.5 F Pulse Rate 117 H 107 H Respiratory Rate 16 Blood Pressure 126/66 Pulse Oximetry 96 97 Intake & Output 10/03/18 10/04/18 10/04/18 18:59 06:59 18:59 Intake Total 1100 / 1100 2480 / 2480 Balance 1100 / 1100 2480 / 2480 Weight 58.3 kg Intake: IV 1100 / 1100 1999 / 1999 NS Inj 1,000 ML @ 100 mls/hr IV 1000 / 1000 1999 / 1999 .CONT .Q10H MARIELLA Rx#:[id number] INVanz Inj 1,000 MG In NS Inj 100 / 100 100 ML @ 200 mls/hr IV.SIG Q24H MARIELLA Rx#:[id number] Oral 480 / 480 Other: # Voids 7 # Urine Diapers 3 Date of Last Bowel Movement 10/02/18 10/04/18 # Bowel Movements 7 Narrative: GENERAL: Middle-aged white female, initially unresponsive however became responsive after suctioning food in her mouth, patient by name and date of only. With altered mental status alert and oriented says she is in Boris SKIN: Abd open wound with granulation tissue healing. Focused skin assessment warm and dry. CARDIOVASCULAR: Regular rate and rhythm. No obvious murmurs to auscultation. No chest tenderness to palpation. RESPIRATORY: No obvious rhonchi or wheezing. Clear to auscultation. Breath sounds equal bilaterally. GASTROINTESTINAL: Abdomen soft, non-tender, nondistended. BS normal. Abdominal wound open, chronic, appears unchanged, no signs of infection. MUSCULOSKELETAL: Extremities without clubbing, cyanosis, or edema. No obvious deformities. NEUROLOGICAL: Awake, alert, confused, as above. Following some commands. No focal neurologic deficits. Moving both upper and lower extremities spontaneously. - Urinary Catheter Management Straight Cath placed during this visit: yes Reason for continuing: Not indwelling catheter Insertion date: 10/02/18 Insertion time: 05:40 Results - Labs CBC & Chem 7: 10/03/18 04:26 10/03/18 04:26 Laboratory Results - last 24 hr 10/04/18 14:07 POC Glucose 107 Microbiology 10/03/18 11:27 Wound - Abdominal Gram Stain - Final 10/03/18 11:27 Wound - Abdominal Wound Culture - Preliminary Rare growth normal skin bridgett at 24 hours 10/02/18 03:15 Blood - Peripheral Aerobic Blood Culture - Preliminary No growth in 2 days 10/02/18 03:15 Blood - Peripheral Anaerobic Blood Culture - Preliminary No growth in 2 days 10/02/18 03:20 Blood - Peripheral Aerobic Blood Culture - Preliminary No growth in 2 days 10/02/18 03:20 Blood - Peripheral Anaerobic Blood Culture - Preliminary No growth in 2 days Assessment and Plan - Assessment (1) Encephalopathy Code(s): G93.40 - Encephalopathy, unspecified Status: Acute (2) Opioid dependence Code(s): F11.20 - Opioid dependence, uncomplicated Status: Acute (3) UTI (urinary tract infection) Code(s): N39.0 - Urinary tract infection, site not specified Status: Acute (4) Open abdominal wall wound Code(s): S31.109A - Unspecified open wound of abdominal wall, unspecified quadrant without penetration into peritoneal cavity, initial encounter Status : Chronic (5) Foot fracture Code(s): S92.909A - Unspecified fracture of unspecified foot, initial encounter for closed fracture Status: Acute (6) LUI (acute kidney injury) Code(s): N17.9 - Acute kidney failure, unspecified Status: Acute - Plan Encephalopathy: acute episode of bizarre behavior-putting purse in the microwave, likely multifactorial-acute UTI, underlying Psych disorder, possible opioid withdrawal and dehydration. CT Head w/ no acute findings, images reviewed. Neuro checks. IV Abx for UTI, IVF for hydration. Ativan prn for agitation/anxiety. Recent ER visit 09/29 for psych eval due to manic symptoms and hallucination-consult Psych for further eval. Seen by psych not an indication for IP psych hospitalization UDS pending. Acute encephalopathy patient was found unresponsive while she was eating. We will do EEG, Will check CT scan of the head stat. Vital signs fairly stable except heart rate noted in the 130s. We will do EKG we will continue to monitor on telemetry. Johan was called as well. POss aspirated will do CXR Will check labs stat cbc, cmp Will consult neurology Opioid Dependence: previous admit 09/20-09/24, found to have significant opioid dependence, weaned off meds and d/c'd w/ no opioids, tachycardic on arrival- possibly related to withdrawal. Ativan prn. Off narcotics and did nto receive any BZs today Abdominal Wall Infection: Chronic. Stable. Healing well UTI: U/a w/ UTI from 09/29, cultures +ESBL E.Coli, had been on Macrobid previously, s/p Gent in ER, MICs reviewed, limited options for outpatient management, will Consult ID for further eval/recommendations regarding antibiotic regimen, especially in light of LUI Seen by ID specialist Dr Le appreciate recs, IV abx Ertapenem. Plan to repeat urine cx on 10/05 U cx , blood cx pending./ Obtain abd wound cx and consult wound care for eval LUI: Creatinine 1.25, previously 0.77 on 09/29/18, IVF for hydration, monitor I/ O, repeat labs in am, caution w/ nephrotoxic agents. Foot Fx: Left foot 2nd/3rd/4th toe fractures, s/p splint on previous ER visit, consult Dr. Truong as patient is not compliant with weightbearing DVT Prophylaxis: SCD/Teds Social work for d/c planning as needed. Discussed with the patient, nurse discharge plan Discharge plan not ready for discharge needs clearance from infectious disease. Will need to repeat urine cultures per infectious disease recommendations. Also bookmobile clerk consulted as patient is not compliant with weightbearing for further recommendation. Adrianet as above (4) Open abdominal wall wound Qualifiers:
--- NOTE | 2018-10-04 15:00 | XR ---
EXAM DATE: 10/04/2018 2:49 PM EST AGE/SEX: 52 years / Female INDICATIONS: Short of breath. CLINICAL DATA: This is the patient's subsequent encounter. Patient reports that signs and symptoms h ave been present for 1 day and indicates a pain score of 0/10. MEDICAL/SURGICAL HISTORY: None. None. [place] [facility] [place]. . FINDINGS: The heart size is normal. The lungs are grossly clear. Clips are seen in the left upper quadrant of t he abdomen. No effusion is seen. There are old healed right rib fractures. CONCLUSION: No acute abnormality is seen. Electronically signed by: Avinash Salazar MD 10/04/2018 2:59 PM EST
[2018-10-04] MEDS ORDERED: levETIRAcetam 1000mg/100mL Inj 100 ML IV.SIG ONE (15:19)
--- NOTE | 2018-10-04 16:38 | CT ---
EXAM DATE: 10/04/2018 4:32 PM EST AGE/SEX: 52 years / Female INDICATIONS: Altered mental status. CLINICAL DATA: This is the patient's initial encounter. Patient reports that signs and symptoms have been present for 1 day and indicates a pain score of 0/10. MEDICAL/SURGICAL HISTORY: Transient ischemic attack. Pulmonary embolism. None. RADIATION DOSE: 46.55 CTDI (mGy) COMPARISON: [facility] – [place], [place] HEAD W/O CONTRAST, 10/02/2018. . TECHNIQUE: CT of the head without contrast. Using automated exposure control and adjustment of the mA and/or kV according to patient size, radiation dose was kept as low as reasonably achievable to ob tain optimal diagnostic quality images. DICOM format image data is available electronically for revi ew and comparison. FINDINGS: Cerebrum: The ventricles are normal for age. No evidence of midline shift, mass lesion, hemorrhage or acute infarction. No extraaxial fluid collections are seen. Posterior Fossa: The cerebellum and brainstem are intact. The 4th ventricle is midline. The cerebe llopontine angle is unremarkable. Extracranial: The visualized portion of the orbits is intact. Skull: The calvaria is intact. No evidence of skull fracture. CONCLUSION: 1. No acute intracranial abnormality. . Electronically signed by: Newton Ramirez MD 10/04/2018 4:36 PM EST
[2018-10-04 16:42] LABS: Baso # (Auto) 0.1 th/mm3 (0.0-0.2); Baso % (Auto) 1.4 % (0.0-2.0); Eos % (Auto) 0.2 % (0.0-4.0); Hematocrit 28.4 % (35.0-46.0); Hemoglobin 9.5 gm/dL (11.6-15.3); Lymph # (Auto) 1.2 th/mm3 (1.0-4.8); Lymph % (Auto) 19.3 % (9.0-44.0); Mean Corpuscular HGB Conc 33.7 % (32.0-36.0); Mean Corpuscular Hemoglobin 32.4 pg (27.0-34.0); Mean Corpuscular Volume 96.2 fL (80.0-100.0); Mean Platelet Volume 9.6 fL (7.0-11.0); Mono # (Auto) 0.5 th/mm3 (0.0-0.9); Mono % (Auto) 8.6 % (0.0-8.0); Neut # (Auto) 4.5 th/mm3 (1.8-7.7); Neut % (Auto) 70.5 % (16.0-70.0); Platelet Count 308 th/mm3 (150-450); Red Blood Count 2.95 mil/mm3 (4.00-5.30); Red Cell Distribution Width 16.2 % (11.6-17.2); White Blood Count 6.4 th/mm3 (4.0-11.0)
[2018-10-04 17:21] LABS: Alanine Aminotransferase 16 U/L (10-53); Albumin 2.1 g/dL (3.4-5.0); Alkaline Phosphatase 93 U/L (45-117); Anion Gap 11 meq/L (5-15); Aspartate Aminotransferase 16 U/L (15-37); Blood Urea Nitrogen 8 mg/dL (7-18); Calcium 7.2 mg/dL (8.5-10.1); Carbon Dioxide 23.4 meq/L (21.0-32.0); Chloride 109 meq/L (98-107); Glomerular Filtration Rate Greater Than 89 mL/min (>89); Glucose,Random 88 mg/dL (74-106); Sodium 143 meq/L (136-145)
[2018-10-04 17:31] LABS: Potassium 2.8 meq/L (3.5-5.1)
--- NOTE | 2018-10-04 18:02 | P.PNWCN ---
Wound Care Nurse Consult Description: Received wound management consult for Abdominal wound from Doctor Estrada Communicated with: Doctor Estrada and Thalia Ruano RN Recommendation: Please cleanse wound to Abdomen with normal saline only and pat dry. Apply Santyl ointment harris thickness to wound bed and cover with fluffed moistened 2x2 gauze. Secure dressing with Optifoam gentle border. Please spray periwound with Cavilon skin barrier film before applying adhesive dressing. Change dressing daily Wound/Pressure Injury - Wound Midline Abdomen Wound Assessment: Admission (Post surgical closure of fistula from another facility) Requested from Provider a Wound Care Consult: Yes Length (cm): 9 (~9cm) Width (cm): 5 (~5cm) Depth (cm): 1 (~1cm) Wound Bed Appearance: Red, Yellow Wound Bed Appearance: Wound bed presents with ~60% red non granulation tissue and ~40% yellow slough Surrounding Tissue Appearance: Shiny, Taut Surrounding Tissue Temperature: Cool Drainage Description: Serosanguinous Drainage Amount: Scant Drainage Odor: No Odor Dressing Status: Reinforced Cover Dressing: bordered gauze Wound Dressing Change Date: 10/04/18 Wound Margin Description: Well defined - Additional Information Patient seen on [address] [place] [address] for evaluation of abdominal wound. Patient is post ictal per SEPIDEH Noyola [address] [place] [address]. RN gentle peeled back bordered gauze to reveal wound that presents with little change from previous wound care inpatient assessment from last admission. RN applied dressing back in place, full approximated wound measurements and description noted above. Precise wound measurements could not be completed at this time due to patient's post ictal condition. Recommendations for wound care are also noted above.
[2018-10-04] MEDS: Collagenase Oint 30 GM Tube TOPICAL SCH (18:37)
[2018-10-04] MEDS ORDERED: Magnesium Oxide 400 MG Tablet PO ONE (18:45)
--- NOTE | 2018-10-04 19:09 | P.CON ---
History of Present Illness Service: Foot and Ankle Surgery/Podiatry Consult date: 10/04/18 Requesting Physician: Pushpa Estrada Reason for Consult: Left foot metatarsal head fractures Primary Care Provider: No Primary Care Physician Chief Complaint: Left foot pain with splint present History of Present Illness: Podiatry consulted for this is a 52-year-old female with a PMH of HTN, Hypothyroidism, TIA, Migraine, H/o Bowel Obstruction w/ Fistula and Open Abdominal Wound and Bipolar Disorder who was brought to the ER by EMS for AMS for left foot metatarsal head fractures. Patient has not undergone surgical intervention by Dr. Truong as reported in previous notes. Patient is unable to articulate at this time, nurse present bedside states patient had a seizure approximately 2 hours ago. [facility] - History History Provided By: Patient, Significant Other - Medical History Medical History: Medical History (Last Updated 10/03/18 @ 10:44 by Kimberlyn Pacheco) MDRO (multiple drug resistant organisms) resistance Onset Date: ~09/29/18 Bowel obstruction Hypothyroidism Migraine Pulmonary embolism TIA (transient ischemic attack) - Surgical History Surgical History: Surgical History (Last Reviewed 10/02/18 @ 09:02 by Erik Loving) H/O abdominal surgery - Family History Family History: Family History (Last Reviewed 09/30/18 @ 05:27 by Nikki Nielson MD) Other No pertinent family history - Tobacco History Second Hand Smoke Exposure: No Smoking Status: Never smoker - Alcohol History How Often Do You Have a Drink Containing Alcohol: Never - Substance Use History Substance History: No History of Abuse - Immunization History Tetanus Immunization: Unsure Hx Influenza Vaccine This Season: No Medications and Allergies Active Medications: Active Medications Acetaminophen (Tylenol) 650 mg PO Q4H PRN PRN Reason: Temp > 100.4 Al Hydroxide/Mg Hydroxide (Milk Of Magnesia Liq) 30 ml PO Q12H PRN PRN Reason: Mild Constipation Bisacodyl (Dulcolax Supp) 10 mg RECTAL DAILY PRN PRN Reason: SEVERE CONSITIPATION Collagenase (Santyl Oint) 1 applicatio TOPICAL DAILY [facility] Last Admin: 10/04/18 18:37 Dose: 1 applicatio Sodium Chloride (Ns Inj) 1,000 mls @ 100 mls/hr IV.CONT .Q10H [facility] Last Admin: 10/04/18 18:31 Dose: 100 mls/hr Ertapenem 1,000 mg/ Sodium (Chloride) 100 mls @ 200 mls/hr IV.SIG Q24H MARIELLA Last Infusion: 10/04/18 17:15 Dose: Infused Levetiracetam 500 mg/ Sodium (Chloride) 105 mls @ 400 mls/hr IV.SIG Q12H MARIELLA Lactulose (Lactulose Liq) 30 ml PO DAILY PRN PRN Reason: SEVERE CONSITIPATION Lorazepam (Ativan Inj) 1 mg IV.PUSH Q2H PRN PRN Reason: AGITATION/ANXIETY Last Admin: 10/04/18 15:23 Dose: 1 mg Metoprolol Tartrate (Lopressor) 50 mg PO BID MARIELLA Ondansetron HCl (Zofran Inj) 4 mg IV.PUSH Q6H PRN PRN Reason: NAUSEA OR VOMITING Potassium Chloride (K-Dur) 40 meq PO Q2H [facility] Stop: 10/04/18 20:31 Last Admin: 10/04/18 18:38 Dose: 40 meq Senna/Docusate Sodium (Lin-Colace) 1 tab PO BID [facility] Last Admin: 10/04/18 08:21 Dose: Not Given Sennosides (Senokot) 17.2 mg PO Q12H PRN PRN Reason: Moderate Constipation Sodium Chloride (Ns Flush) 2 ml IV.FLUSH PRN PRN PRN Reason: FLUSH AFTER USING IV ACCESS Last Admin: 10/04/18 04:05 Dose: 2 ml Allergies Allergy/AdvReac Type Severity Reaction Status Date / Time adhesive Allergy Itching Verified 09/29/18 15:29 bee venom protein (honey bee) Allergy Unconscious Verified 09/26/18 01:15 cephalexin [From Keflex] Allergy Anaphylaxis Verified 09/26/18 01:15 codeine Allergy Itching Verified 09/26/18 01:15 ketorolac [From Toradol] Allergy Weakness Verified 09/26/18 02:14 Penicillins Allergy Itching Verified 09/26/18 01:15 Home Medications Medication Instructions Recorded Confirmed Type amitriptyline 200 mg PO DAILY 09/20/18 10/02/18 History baclofen 20 mg PO TID 09/20/18 10/02/18 History levothyroxine 50 mcg PO DAILY 09/20/18 10/02/18 History metoprolol tartrate 25 mg PO BID 09/20/18 10/02/18 History kiawwthzer-[id number]-iplq 2 cap PO Q4H PRN 09/26/18 10/02/18 History [Fioricet] pyridostigmine bromide 60 mg PO QID 09/26/18 10/02/18 History sumatriptan succinate 100 mg PO Q2-4H PRN 09/26/18 10/02/18 History fluticasone [Flonase Allergy 50 mg INTRANASAL DAILY 09/29/18 10/02/18 History Relief] nitrofurantoin monohyd/m-cryst 100 mg PO BID 09/29/18 10/02/18 History [Macrobid] Physical Exam Vital signs: Vital Signs 10/03/18 19:23 10/03/18 20:03 10/03/18 23:51 Temperature 97.3 F L Pulse Rate 133 H 114 H 138 H Respiratory Rate 18 Blood Pressure 142/76 H Pulse Oximetry 97 10/04/18 00:00 10/04/18 03:54 10/04/18 04:00 Temperature 98.5 F 98.6 F Pulse Rate 124 H 118 H 119 H Respiratory Rate 20 16 Blood Pressure 135/68 118/57 L Pulse Oximetry 96 99 10/04/18 08:00 10/04/18 09:00 10/04/18 12:00 Temperature 97.4 F L 98.5 F Pulse Rate 115 H 117 H 107 H Respiratory Rate 16 16 Blood Pressure 128/58 L 126/66 Pulse Oximetry 96 96 10/04/18 14:07 10/04/18 14:12 10/04/18 14:27 Temperature Pulse Rate 113 H 135 H Respiratory Rate 21 Blood Pressure 157/76 H 150/72 H Pulse Oximetry 97 10/04/18 16:00 Temperature 98.5 F Pulse Rate 107 H Respiratory Rate 16 Blood Pressure 126/66 Pulse Oximetry 96 Intake & Output 10/03/18 10/04/18 10/04/18 18:59 06:59 18:59 Intake Total 1100 / 1100 2480 / 2480 1200 / 1200 Balance 1100 / 1100 2480 / 2480 1200 / 1200 Weight 58.3 kg Intake: IV 1100 / 1100 2000 / 2000 1200 / 1200 NS Inj 1,000 ML @ 100 mls/hr IV 1000 / 1000 1999 / 1999 1000 / 1000 .CONT .Q10H MARIELLA Rx#:[id number] INVanz Inj 1,000 MG In NS Inj 100 / 100 100 / 100 100 ML @ 200 mls/hr IV.SIG Q24H MARIELLA Rx#:[id number] Keppra 1000 mg/100 mL Premix 100 / 100 100 ML @ 400 mls/hr IV.SIG ONCE ONE Rx#:[id number] Oral 480 / 480 Other: # Voids 7 # Urine Diapers 3 Date of Last Bowel Movement 10/02/18 10/04/18 10/04/18 # Bowel Movements 7 Narrative: GENERAL: This is a well-nourished, well-developed patient, in no apparent distress. SKIN: Intact HEAD: Atraumatic. EYES: Pupils equal round and reactive. ENT: Airway patent. NECK: Trachea midline. RESPIRATORY: Nonlabored breathing. MUSCULOSKELETAL:. Negative Homans sign bilaterally. NEUROLOGICAL: Awake and alert. Normal speech. Lower extremity physical exam: Vascular: Dorsalis pedis 2/4, posterior tibial 2/4. Capillary refill time within normal limits to digits x5 bilateral foot. Edema present to left foot with ecchymosis present. Neuro: Gross sensation intact to bilateral lower extremity. No hyperalgesia noted to bilateral lower extremity Dermatology: Normal temperature and turgor to bilateral lower extremity. Musculoskeletal: Tender to palpation to left foot. - Urinary Catheter Management Straight Cath placed during this visit: yes Reason for continuing: Not indwelling catheter Insertion date: 10/02/18 Insertion time: 05:40 Results - Labs CBC & Chem 7: 10/04/18 16:02 10/04/18 16:02 Labs: Laboratory Results - last 24 hr 10/04/18 10/04/18 10/04/18 14:07 16:02 16:02 WBC 6.4 RBC 2.95 L Hgb 9.5 L Hct 28.4 L MCV 96.2 MCH 32.4 MCHC 33.7 RDW 16.2 Plt Count 308 MPV 9.6 Neut % (Auto) 70.5 H Lymph % (Auto) 19.3 Beckham % (Auto) 8.6 H Eos % (Auto) 0.2 Baso % (Auto) 1.4 Neut # (Auto) 4.5 Lymph # (Auto) 1.2 Beckham # (Auto) 0.5 Eos # (Auto) 0.0 Baso # (Auto) 0.1 WBC Differential . Differential Comment Auto diff final Sodium 143 Potassium 2.8 L* D Chloride 109 H Carbon Dioxide 23.4 Anion Gap 11 BUN 8 Creatinine 0.47 L Estimated GFR Greater than 89 POC Glucose 107 Random Glucose 88 Calcium 7.2 L* Prot Corrected Calcium 7.8 L Total Bilirubin 0.2 AST 16 ALT 16 Alkaline Phosphatase 93 Total Protein 6.0 L D Albumin 2.1 L - Imaging Impressions Head CT 10/04/18 14:25 CONCLUSION: 1. No acute intracranial abnormality. . Chest X-Ray 10/04/18 14:26 CONCLUSION: No acute abnormality is seen. Assessment and Plan - Plan 52 year old female with left foot metatarsal head fractures Please wrap left foot with BORIS wrap to knee CAM walker/Walking boot Recommend patient heel weight bear with walker assist Patient to follow up in office within 2 weeks of discharge
--- NOTE | 2018-10-04 21:35 | MB ---
cc: Terry Almanzar MD, PhD DATE: 10/04/2018 REASON FOR CONSULTATION: Mental status change. HISTORY OF PRESENT ILLNESS: Ms. Morrison is a 52-year-old female, who was brought to the hospital after she developed confusion over the weekend. Her son states that on Tuesday, she is very confused, not acting normally, but this improved on Tuesday to the point where he was able to go to work. Then, on Tuesday evening apparently, the neighbors called 911 when they saw that she was outside walking around the yard very confused, disoriented, and she came to the hospital. An EEG done today showed possible subclinical seizure activity, but the official reading of the EEG is pending. Nonetheless, she was given Ativan and this EEG activity subsided. She has been placed on Keppra. Mental status appears to be doing better at the present time. PAST MEDICAL HISTORY: She has a history of hypothyroidism, hypertension, TIA, migraine, bowel obstruction with the fistula, open abdominal wound, and a history of bipolar disorder. CURRENT MEDICATIONS: 1. Tylenol. 2. Dulcolax. 3. Santyl. 4. Lactulose. 5. Keppra 500 mg IV every 12 hours. 6. Ativan p.r.n. 7. Metoprolol 50 mg b.i.d. 8. Zofran p.r.n. 9. K-Dur 40 mEq every 2 hours. 10. Senokot. NEUROLOGIC EXAMINATION: VITAL SIGNS: Her blood pressure is 150/72, pulse is 135, respirations 16, and temperature 98 degrees. HIGHER CORTICAL FUNCTION: At this time, she is alert. She is disoriented to place, but is oriented to date and to self. She has poor recent memory. She recalls past events fairly well. She will follow commands. Cranial nerves intact. Motor exam is normal with no focal deficit. LABORATORY DATA: The white count is 13,000, hemoglobin 11.8, hematocrit 36%, platelets 287,000. Sodium is 145, potassium 3.5, chloride 108, CO2 is 21.3. The BUN is 18, creatinine 1.25, GFR is 45, glucose is 122, AST 31, ALT is 20. TSH 0.677. Urinalysis: The pH is 5, specific gravity 1.017, ketones are 20, WBC is 3. Tox screen positive for barbiturates. CT brain: No acute change present. IMPRESSION: 1. Mental status change, possible complex partial seizures. I will review the EEG. Would recommend at changing the Keppra to 500 mg every 6 hours. I would like to repeat an EEG tomorrow. Also, MRI of the brain. At this time, she is not having any symptoms to suggest CABLE SPLICING TECHNICIAN infection. She is afebrile. She does have headache, but there is no nuchal rigidity. The patient does relate that she was getting some chills. With no other obvious cause of seizures, we also recommend lumbar puncture to rule out CABLE SPLICING TECHNICIAN infection encephalitis. We will start her on acyclovir pending results of the CSF and MRI studies. Terry Almanzar MD, PhD ALEKS/carmen , 08:07 PM , 08:14 PM
[2018-10-04] MEDS: SODIUM CHLOR 0.9% IV.SIG SCH (21:41)
[2018-10-04] MEDS: ACYCLOVIR IV.SIG SCH (21:41)
[2018-10-05] MEDS: Sod Chloride 0.9% Inj 1,000 ML IV.CONT SCH ×2 (04:49→15:59)
[2018-10-05] MEDS: SODIUM CHLOR 0.9% IV.SIG SCH ×2 (05:27→16:40)
[2018-10-05] MEDS: ACYCLOVIR IV.SIG SCH ×2 (05:27→16:40)
--- NOTE | 2018-10-05 07:48 | MG ---
cc: Guanako Peres MD EEG RECORD NUMBER: [id number] amplitude. Frontal sharp waves, background theta, but mainly delta activity occurring. Bilateral frontal central phase reversal occurring at times. Sharp high amplitude activity 20-70 microvolts epoch 34, rhythmic epoch 55 off and on, and noted to have some eye fluttering. Sensation to sharp activity around epoch 104, mainly delta and spindles. Single EKG showing sinus rhythm. INTERPRETATION: Bursts of frontal discharges off and on, with cessation towards the end of the recording. May be seen with subclinical status. Clinical correlation. MD MICHELE Whiting/jose/edson , 07:16 PM , 07:21 PM
[2018-10-05] MEDS: Senna/Docusate Sodium 8.6/50 MG Tablet PO SCH ×2 (08:13→20:04)
[2018-10-05] MEDS: Collagenase Oint 30 GM Tube TOPICAL SCH (08:14)
[2018-10-05] MEDS: Metoprolol Tartrate 25 MG Tablet PO SCH ×2 (08:14→20:04)
[2018-10-05] MEDS ORDERED: Potassium Bicarbonate 25 MEQ Effervescent Tablet PO ONE (08:20)
[2018-10-05] MEDS: Magnesium Oxide 400 MG Tablet PO SCH (08:48)
--- NOTE | 2018-10-05 10:05 | P.RAD ---
Post Procedure Progress Note - Pre Procedure Diagnosis (1) Encephalopathy - Post Procedure Diagnosis (1) Encephalopathy - Procedure Information Procedure Date: 10/05/18 Supervising Radiologist: Nilay Dougherty MD Estimated blood loss (mL): 0 Anesthesia: Local - Plan of Activity Patient to Unit: Nursing Unit Patient Condition: Fair Additional Comments: Lp completed without difficulty. 20cc of clear csf removed Full report to follow See PACS Report for procedural detail/treatment.
[2018-10-05 10:44] LABS: Total Protein,CSF 41.2 mg/dL (15.0-45.0)
[2018-10-05 11:04] LABS: Neutrophils,CSF 0 %
[2018-10-05 11:05] LABS: RBC on Tube 4 0 /mm3
[2018-10-05] MEDS ORDERED: Gadobutrol PF 2 MMOL/2 ML Vial (for RAD) IV.SIG ONE (11:30)
--- NOTE | 2018-10-05 12:00 | MR ---
EXAM DATE: 10/05/2018 11:38 AM EST AGE/SEX: 52 years / Female INDICATIONS: Altered mental status. CLINICAL DATA: This is the patient's subsequent encounter. Patient reports that signs and symptoms h ave been present for 3 days and indicates a pain score of 0/10. MEDICAL/SURGICAL HISTORY: Renal disease. Blood disorder. Hysterectomy. section. Gas tric bypass. COMPARISON: [facility] – [place], CT HEAD W/O CONTRAST, 10/04/2018. . TECHNIQUE: Multiplanar, multisequence examination of the brain was performed without and with 6 ml Ga davist (gadobutrol) contrast as a single exam dose. FINDINGS: Cerebrum: The ventricles are normal for age. No evidence of midline shift, mass lesion, hemorrhage or acute infarction. No extraaxial fluid collections are seen. The pituitary gland and suprasellar cistern are normal in configuration. There is mild symmetric hyperintensity of the basal ganglia bila terally on the T1-weighted images. White Matter: No significant signal abnormalities are seen in the white matter. Posterior Fossa: The cerebellum and brainstem are intact. The 4th ventricle is midline. The cerebel lopontine angle is unremarkable. The cerebellar tonsils are normal in position. Diffusion Imaging: No focal areas of restricted diffusion are seen. No evidence of acute infarction . Extracranial: The visualized portions of the orbits and paranasal sinuses are unremarkable. Post Contrast: No abnormal areas of parenchymal or dural enhancement. No evidence of blood-brain ba rrier breakdown. CONCLUSION: 1. No acute intracranial findings. 2. Nonspecific mild hyperintensity of the basal ganglia on the T1-weighted images only. Likely an in cidental finding. Electronically signed by: Mao De Los Santos MD 10/05/2018 11:59 AM EST
--- NOTE | 2018-10-05 14:19 | P.PN ---
Subjective Interval history: Patient is still confused. No seizures overnight. Knows her name. Denies any chest pain or shortness of breath no nausea or vomiting. Had a bowel movement during EEG study Physical Exam Vital signs: Vital Signs 10/04/18 14:27 10/04/18 16:00 10/04/18 20:00 Temperature 98.5 F 97.8 F Pulse Rate 112 H 124 H Respiratory Rate 16 18 Blood Pressure 126/66 126/59 L Pulse Oximetry 97 96 98 10/05/18 00:00 10/05/18 04:00 10/05/18 07:27 Temperature 98.1 F 97.8 F 98.2 F Pulse Rate 114 H 105 H 120 H Respiratory Rate 18 17 Blood Pressure 122/59 L 124/77 122/64 Pulse Oximetry 99 99 98 10/05/18 08:00 Temperature Pulse Rate 125 H Respiratory Rate Blood Pressure Pulse Oximetry Intake & Output 10/04/18 10/05/18 10/05/18 18:59 06:59 18:59 Intake Total 1640 / 1640 1773.4 / 1773.4 Output Total 300 / 300 Balance 1640 / 1640 1473.4 / 1473.4 Weight 60 kg Intake: IV 1200 / 1200 1533.4 / 1533.4 NS Inj 1,000 ML @ 100 mls/hr IV 1000 / 1000 1000 / 1000 .CONT .Q10H MARIELLA Rx#:[id number] Zovirax Inj 585 MG In NS Inj 323.4 / 323.4 150 ML @ 161.7 mls/hr IV.SIG Q8H MARIELLA Rx#:[id number] INVanz Inj 1,000 MG In NS Inj 100 / 100 100 ML @ 200 mls/hr IV.SIG Q24H MARIELLA Rx#:[id number] Keppra 1000 mg/100 mL Premix 100 / 100 100 ML @ 400 mls/hr IV.SIG ONCE ONE Rx#:[id number] Keppra Inj 500 MG In NS Inj 100 210 / 210 ML @ 400 mls/hr IV.SIG Q6HR MARIELLA Rx#:[id number] Oral 440 / 440 240 / 240 Output: Urine 300 / 300 Other: # Voids 4 2 # Incontinent Voids 1 Date of Last Bowel Movement 10/04/18 10/05/18 # Bowel Movements 2 0 # Incontinent Bowel Movements 2 Narrative: GENERAL: Middle-aged white female, confused/lethargic. SKIN: Abd open wound with granulation tissue healing. Focused skin assessment warm and dry. CARDIOVASCULAR: Regular rate and rhythm. No obvious murmurs to auscultation. No chest tenderness to palpation. RESPIRATORY: No obvious rhonchi or wheezing. Clear to auscultation. Breath sounds equal bilaterally. GASTROINTESTINAL: Abdomen soft, non-tender, nondistended. BS normal. Abdominal wound open, chronic, appears unchanged, no signs of infection. MUSCULOSKELETAL: Extremities without clubbing, cyanosis, or edema. No obvious deformities. NEUROLOGICAL:Confused, sleepy. Moving both upper and lower extremities spontaneously. - Urinary Catheter Management Straight Cath placed during this visit: yes Reason for continuing: Not indwelling catheter Insertion date: 10/02/18 Insertion time: 05:40 Results - Labs CBC & Chem 7: 10/04/18 16:02 10/05/18 15:21 Laboratory Results - last 24 hr 10/04/18 10/04/18 10/04/18 14:07 16:02 16:02 WBC 6.4 RBC 2.95 L Hgb 9.5 L Hct 28.4 L MCV 96.2 MCH 32.4 MCHC 33.7 RDW 16.2 Plt Count 308 MPV 9.6 Neut % (Auto) 70.5 H Lymph % (Auto) 19.3 [place] % (Auto) 8.6 H Eos % (Auto) 0.2 Baso % (Auto) 1.4 Neut # (Auto) 4.5 Lymph # (Auto) 1.2 [place] # (Auto) 0.5 Eos # (Auto) 0.0 Baso # (Auto) 0.1 WBC Differential . Differential Comment Auto diff final Sodium 143 Potassium 2.8 L* D Chloride 109 H Carbon Dioxide 23.4 Anion Gap 11 BUN 8 Creatinine 0.47 L Estimated GFR Greater than 89 POC Glucose 107 Random Glucose 88 Calcium 7.2 L* Prot Corrected Calcium 7.8 L Total Bilirubin 0.2 AST 16 ALT 16 Alkaline Phosphatase 93 Total Protein 6.0 L D Albumin 2.1 L CSF Volume (1) CSF Supernat Color (1) CSF Gross Blood (1) CSF Volume (2) CSF Supernat Color (2) CSF Gross Blood (2) CSF Volume (3) CSF Supernat Color (3) CSF Gross Blood (3) CSF Volume (4) CSF Supernat Color (4) CSF Gross Blood (4) CSF WBC (4) CSF RBC (4) CSF Neutrophils % CSF Glucose CSF Total Protein 10/05/18 10/05/18 09:55 09:55 WBC RBC Hgb Hct MCV MCH MCHC RDW Plt Count MPV Neut % (Auto) Lymph % (Auto) [place] % (Auto) Eos % (Auto) Baso % (Auto) Neut # (Auto) Lymph # (Auto) [place] # (Auto) Eos # (Auto) Baso # (Auto) WBC Differential Differential Comment Sodium Potassium Chloride Carbon Dioxide Anion Gap BUN Creatinine Estimated GFR POC Glucose Random Glucose Calcium Prot Corrected Calcium Total Bilirubin AST ALT Alkaline Phosphatase Total Protein Albumin CSF Volume (1) 4.5 CSF Supernat Color (1) Clear CSF Gross Blood (1) 0 CSF Volume (2) 4.5 CSF Supernat Color (2) Clear CSF Gross Blood (2) 0 CSF Volume (3) 4.5 CSF Supernat Color (3) Clear CSF Gross Blood (3) 0 CSF Volume (4) 5.0 CSF Supernat Color (4) Clear CSF Gross Blood (4) 0 CSF WBC (4) 0 CSF RBC (4) 0 CSF Neutrophils % 0 CSF Glucose 53 CSF Total Protein 41.2 Microbiology 10/05/18 09:55 Lumbar Puncture Gram Stain - Final 10/02/18 03:15 Blood - Peripheral Aerobic Blood Culture - Preliminary No growth in 3 days 10/02/18 03:15 Blood - Peripheral Anaerobic Blood Culture - Preliminary No growth in 3 days 10/02/18 03:20 Blood - Peripheral Aerobic Blood Culture - Preliminary No growth in 3 days 10/02/18 03:20 Blood - Peripheral Anaerobic Blood Culture - Preliminary No growth in 3 days 10/03/18 11:27 Wound - Abdominal Gram Stain - Final 10/03/18 11:27 Wound - Abdominal Wound Culture - Preliminary Rare growth normal skin bridgett No anaerobes isolated - Imaging Impressions Head CT 10/04/18 14:25 CONCLUSION: 1. No acute intracranial abnormality. . Chest X-Ray 10/04/18 14:26 CONCLUSION: No acute abnormality is seen. Head MRI 10/05/18 00:00 CONCLUSION: 1. No acute intracranial findings. 2. Nonspecific mild hyperintensity of the basal ganglia on the T1-weighted images only. Likely an incidental finding. Assessment and Plan - Assessment (1) Encephalopathy Code(s): G93.40 - Encephalopathy, unspecified Status: Acute (2) Opioid dependence Code(s): F11.20 - Opioid dependence, uncomplicated Status: Acute (3) UTI (urinary tract infection) Code(s): N39.0 - Urinary tract infection, site not specified Status: Acute (4) Open abdominal wall wound Code(s): S31.109A - Unspecified open wound of abdominal wall, unspecified quadrant without penetration into peritoneal cavity, initial encounter Status : Chronic (5) Foot fracture Code(s): S92.909A - Unspecified fracture of unspecified foot, initial encounter for closed fracture Status: Acute (6) LUI (acute kidney injury) Code(s): N17.9 - Acute kidney failure, unspecified Status: Acute - Plan Encephalopathy: acute episode of bizarre behavior-putting purse in the microwave, likely multifactorial-acute UTI, underlying Psych disorder, possible opioid withdrawal and dehydration. CT Head w/ no acute findings, images reviewed. Neuro checks. IV Abx for UTI, IVF for hydration. Ativan prn for agitation/anxiety. Recent ER visit 09/29 for psych eval due to manic symptoms and hallucination-consult Psych for further eval. Seen by psych not an indication for IP psych hospitalization UDS pending. Acute encephalopathy patient was found unresponsive while she was eating on . EEG ordered and reviewed with poss seizure activity CT scan of the head, MRI per neuro. Will consult neurology, appreciate recs LP with CSF analysis pending Repeat EEG per neuro Started on kepra, loaded with Keppra 1000 mg IV . Kepra increased to 500 mg Q6Hrs per neuro recommendations Start IV abx and also acyclovir for poss meningitis /encephalitis Consult ID specialist Severe hypokalemia K 2.7 replace L and monitor lytes. Check mag and phos as replace Opioid Dependence: previous admit 09/20-09/24, found to have significant opioid dependence, weaned off meds and d/c'd w/ no opioids, tachycardic on arrival- possibly related to withdrawal. Ativan prn. Off narcotics and did nto receive any BZs today Abdominal Wall Infection: Chronic. Stable. Healing well UTI: U/a w/ UTI from 09/29, cultures +ESBL E.Coli, had been on Macrobid previously, s/p Gent in ER, MICs reviewed, limited options for outpatient management, will Consult ID for further eval/recommendations regarding antibiotic regimen, especially in light of LUI Seen by ID specialist Dr Le appreciate recs, IV abx Ertapenem. Plan to repeat urine cx on 10/05 U cx , blood cx pending./ Obtain abd wound cx and consult wound care for eval LUI: Creatinine 1.25, previously 0.77 on 09/29/18, IVF for hydration, monitor I/ O, repeat labs in am, caution w/ nephrotoxic agents. Foot Fx: Left foot 2nd/3rd/4th toe fractures, s/p splint on previous ER visit, consult Dr. Truong as patient is not compliant with weightbearing. Seen by powder hand appreciate input. DVT Prophylaxis: SCD/Teds Social work for d/c planning as needed. Discussed with the patient, nurse Discharge plan: not ready for discharge, pending improvement, needs clearance from infectious disease, neurology. Will need to repeat urine cultures per infectious disease recommendations. Patient admitted inpatient as patient with seizures, neurology consulted also with poss encephalitis/meningitis , had LP done , imaging per neuro (4) Open abdominal wall wound Qualifiers:
--- NOTE | 2018-10-05 15:51 | P.PNID ---
Subjective Remarks: Patient is awake. Follows commands and has no complaints. Afebrile. Denies PACK. This is a 52-year-old white female, who presented to the emergency department with altered mental status. She was recently seen in the hospital and urine culture was taken and came back with extended-spectrum beta-lactamase Escherichia coli. She was put on Macrobid before the final report of the urine culture became available. The Macrobid was given during an emergency evaluation on 09/29/2018. She had presented with psychiatric symptoms and was felt to be manic. She was noted to have bipolar disorder. Her urine culture came back showing ESBL Escherichia coli and that is the reason why this consultation is requested. The patient currently sitting up in a chair. She is awake and alert. She tells me that she gets occasional chills. She does not seem to be confused currently. She is afebrile. Her white blood cell count is elevated at 13.0. Blood culture taken were taken today. This consultation was requested because of the positive urine culture with resistant bacteria. Past Medical History: PAST MEDICAL HISTORY: Hypothyroidism, migraines, pulmonary embolism, TIA, and bowel obstruction. Allergies/Adverse Reactions: Allergies adhesive Allergy (Verified 09/29/18 15:29) Itching bee venom protein (honey bee) Allergy (Verified 09/26/18 01:15) Unconscious cephalexin [From Keflex] Allergy (Verified 09/26/18 01:15) Anaphylaxis codeine Allergy (Verified 09/26/18 01:15) Itching ketorolac [From Toradol] Allergy (Verified 09/26/18 02:14) Weakness PT STATES POSSIBLE REACTION FROM TORADOL CAUSED STROKE LIKE SYMPTOMS CAUSING HER TO BE STROKE ALERTED. Penicillins Allergy (Verified 09/26/18 01:15) Itching Objective Vital Signs 10/04/18 16:00 10/04/18 20:00 10/05/18 00:00 Temperature 98.5 F 97.8 F 98.1 F Pulse Rate 112 H 124 H 114 H Respiratory Rate 16 18 18 Blood Pressure 126/66 126/59 L 122/59 L Pulse Oximetry 96 98 99 10/05/18 04:00 10/05/18 07:27 10/05/18 08:00 Temperature 97.8 F 98.2 F Pulse Rate 105 H 120 H 125 H Respiratory Rate 17 Blood Pressure 124/77 122/64 Pulse Oximetry 99 98 Intake & Output 10/04/18 10/05/18 10/05/18 18:59 06:59 18:59 Intake Total 1640 / 1640 1773.4 / 1773.4 600 / 600 Output Total 300 / 300 Balance 1640 / 1640 1473.4 / 1473.4 600 / 600 Weight 60 kg Intake: IV 1200 / 1200 1533.4 / 1533.4 600 / 600 NS Inj 1,000 ML @ 100 mls/hr IV 1000 / 1000 1000 / 1000 600 / 600 .CONT .Q10H MARIELLA Rx#:[id number] Zovirax Inj 585 MG In NS Inj 323.4 / 323.4 150 ML @ 161.7 mls/hr IV.SIG Q8H MARIELLA Rx#:[id number] INVanz Inj 1,000 MG In NS Inj 100 / 100 100 ML @ 200 mls/hr IV.SIG Q24H MARIELLA Rx#:[id number] Keppra 1000 mg/100 mL Premix 100 / 100 100 ML @ 400 mls/hr IV.SIG ONCE ONE Rx#:[id number] Keppra Inj 500 MG In NS Inj 100 210 / 210 ML @ 400 mls/hr IV.SIG Q6HR MARIELLA Rx#:[id number] Oral 440 / 440 240 / 240 Output: Urine 300 / 300 Other: # Voids 4 2 # Incontinent Voids 1 Date of Last Bowel Movement 10/04/18 10/05/18 # Bowel Movements 2 0 # Incontinent Bowel Movements 2 10/05/18 09:55 Cerebral Spinal Fluid - Lumbar Puncture Acid Fast Bacilli Smear - Pending 10/05/18 09:55 Cerebral Spinal Fluid - Lumbar Puncture Mycobacterial Culture - Pending 10/05/18 09:55 Lumbar Puncture Gram Stain - Final 10/05/18 09:55 Lumbar Puncture CSF Culture - Pending 10/02/18 03:15 Blood - Peripheral Aerobic Blood Culture - Preliminary No growth in 3 days 10/02/18 03:15 Blood - Peripheral Anaerobic Blood Culture - Preliminary No growth in 3 days 10/02/18 03:20 Blood - Peripheral Aerobic Blood Culture - Preliminary No growth in 3 days 10/02/18 03:20 Blood - Peripheral Anaerobic Blood Culture - Preliminary No growth in 3 days 10/05/18 09:55 Cerebral Spinal Fluid - Lumbar Puncture Fungal Smear - Pending 10/05/18 09:55 Cerebral Spinal Fluid - Lumbar Puncture Fungal Culture - Pending 10/03/18 11:27 Wound - Abdominal Gram Stain - Final 10/03/18 11:27 Wound - Abdominal Wound Culture - Preliminary Rare growth normal skin bridgett No anaerobes isolated Lab - Hematology Results 10/04/18 16:02 WBC 6.4 RBC 2.95 L Hgb 9.5 L Hct 28.4 L MCV 96.2 MCH 32.4 MCHC 33.7 RDW 16.2 Plt Count 308 MPV 9.6 Neut % (Auto) 70.5 H Lymph % (Auto) 19.3 [place]y % (Auto) 8.6 H Eos % (Auto) 0.2 Baso % (Auto) 1.4 Neut # (Auto) 4.5 Lymph # (Auto) 1.2 Eddy # (Auto) 0.5 Eos # (Auto) 0.0 Baso # (Auto) 0.1 WBC Differential . Differential Comment Auto diff final Lab - Chemistry Results 10/04/18 10/04/18 14:07 16:02 Sodium 143 Potassium 2.8 L* D Chloride 109 H Carbon Dioxide 23.4 Anion Gap 11 BUN 8 Creatinine 0.47 L Estimated GFR Greater than 89 POC Glucose 107 Random Glucose 88 Calcium 7.2 L* Prot Corrected Calcium 7.8 L Total Bilirubin 0.2 AST 16 ALT 16 Alkaline Phosphatase 93 Total Protein 6.0 L D Albumin 2.1 L Imaging: ITS Impressions Head CT 10/04/18 14:25 CONCLUSION: 1. No acute intracranial abnormality. . Chest X-Ray 10/04/18 14:26 CONCLUSION: No acute abnormality is seen. Head MRI 10/05/18 00:00 CONCLUSION: 1. No acute intracranial findings. 2. Nonspecific mild hyperintensity of the basal ganglia on the T1-weighted images only. Likely an incidental finding. Physical Exam: PHYSICAL EXAMINATION: GENERAL: No acute distress. She is awake and alert and oriented. HEENT: Head is atraumatic. Extraocular movements are grossly intact. Pupils reactive to light. No icterus. Oropharynx moist mucosa without visible lesions. NECK: Supple. No adenopathy. LUNGS: Clear BS. HEART: Regular S1 and S2, without audible murmurs, rubs or gallops. ABDOMEN: Bowel sounds present. Soft, midabdominal ulcerated wound is superficial and has good granulation tissue. No visible erythema. EXTREMITIES: No clubbing or cyanosis. SKIN: No diffuse rash. NEUROLOGIC: Nonfocal. PSYCHIATRIC: Calm and cooperative. Assessment and Plan - Plan ASSESSMENT: 1. Urinary tract infection due to extended-spectrum beta-lactamase Escherichia coli. 2. Acute kidney disease. Improved. 3. Possible early sepsis on admission. Heart rate is 104, along with elevated white count and urinary tract infection. RECOMMENDATIONS: 1. Stop ertapenem. 2. Follow repeat urine culture.
[2018-10-05 16:55] LABS: Alanine Aminotransferase 18 U/L (10-53); Albumin 2.5 g/dL (3.4-5.0); Alkaline Phosphatase 109 U/L (45-117); Anion Gap 8 meq/L (5-15); Aspartate Aminotransferase 28 U/L (15-37); Blood Urea Nitrogen 4 mg/dL (7-18); Calcium 8.1 mg/dL (8.5-10.1); Carbon Dioxide 24.7 meq/L (21.0-32.0); Chloride 106 meq/L (98-107); Glomerular Filtration Rate Greater Than 89 mL/min (>89); Glucose,Random 89 mg/dL (74-106); Potassium 4.2 meq/L (3.5-5.1); Sodium 139 meq/L (136-145); Total Protein 6.9 g/dL (6.4-8.2)
--- NOTE | 2018-10-05 20:55 | P.PNNEU ---
Subjective Subjective Comments: mental status improving today Active Medications: Active Medications Acetaminophen (Tylenol) 650 mg PO Q4H PRN PRN Reason: Temp > 100.4 Al Hydroxide/Mg Hydroxide (Milk Of Magnesia Liq) 30 ml PO Q12H PRN PRN Reason: Mild Constipation Bisacodyl (Dulcolax Supp) 10 mg RECTAL DAILY PRN PRN Reason: SEVERE CONSITIPATION Calcium Carbonate (Tums Chew) 500 mg CHEW BID [facility] Last Admin: 10/05/18 20:04 Dose: 500 mg Collagenase (Santyl Oint) 1 applicatio TOPICAL DAILY [facility] Last Admin: 10/05/18 08:14 Dose: 1 applicatio Sodium Chloride (Ns Inj) 1,000 mls @ 100 mls/hr IV.CONT .Q10H [facility] Last Infusion: 10/05/18 19:37 Dose: 100 mls/hr Levetiracetam 500 mg/ Sodium (Chloride) 105 mls @ 400 mls/hr IV.SIG Q6HR [facility] Last Infusion: 10/05/18 19:10 Dose: Infused Acyclovir Sodium 585 mg/ (Sodium Chloride) 161.7 mls @ 161.7 mls/hr IV.SIG Q8H [facility] Lactulose (Lactulose Liq) 30 ml PO DAILY PRN PRN Reason: SEVERE CONSITIPATION Lorazepam (Ativan Inj) 1 mg IV.PUSH Q2H PRN PRN Reason: AGITATION/ANXIETY Last Admin: 10/05/18 01:11 Dose: 1 mg Magnesium Oxide (Mag-Ox) 400 mg PO DAILY [facility] Stop: 10/09/18 09:01 Last Admin: 10/05/18 08:48 Dose: 400 mg Metoprolol Tartrate (Lopressor) 50 mg PO BID [facility] Last Admin: 10/05/18 20:04 Dose: 50 mg Ondansetron HCl (Zofran Inj) 4 mg IV.PUSH Q6H PRN PRN Reason: NAUSEA OR VOMITING Senna/Docusate Sodium (Lin-Colace) 1 tab PO BID [facility] Last Admin: 10/05/18 20:04 Dose: 1 tab Sennosides (Senokot) 17.2 mg PO Q12H PRN PRN Reason: Moderate Constipation Sodium Chloride (Ns Flush) 2 ml IV.FLUSH PRN PRN PRN Reason: FLUSH AFTER USING IV ACCESS Last Admin: 10/04/18 04:05 Dose: 2 ml Allergies/Adverse Reactions: Allergies Allergy/AdvReac Type Severity Reaction Status Date / Time adhesive Allergy Itching Verified 09/29/18 15:29 bee venom protein (honey bee) Allergy Unconscious Verified 09/26/18 01:15 cephalexin [From Keflex] Allergy Anaphylaxis Verified 09/26/18 01:15 codeine Allergy Itching Verified 09/26/18 01:15 ketorolac [From Toradol] Allergy Weakness Verified 09/26/18 02:14 Penicillins Allergy Itching Verified 09/26/18 01:15 Physical Exam Vital signs: Vital Signs 10/05/18 00:00 10/05/18 04:00 10/05/18 07:27 Temperature 98.1 F 97.8 F 98.2 F Pulse Rate 114 H 105 H 120 H Respiratory Rate 18 17 Blood Pressure 122/59 L 124/77 122/64 Pulse Oximetry 99 99 98 10/05/18 08:00 10/05/18 16:00 Temperature 98.4 F Pulse Rate 125 H 100 H Respiratory Rate 18 Blood Pressure 118/62 Pulse Oximetry 98 Intake & Output 10/05/18 10/05/18 10/06/18 06:59 18:59 06:59 Intake Total 1773.4 / 1773.4 1241.7 / 1241.7 105 / 105 Output Total 300 / 300 Balance 1473.4 / 1473.4 1241.7 / 1241.7 105 / 105 Weight 60 kg Intake: IV 1533.4 / 1533.4 761.7 / 761.7 105 / 105 NS Inj 1,000 ML @ 100 mls/hr IV 1000 / 1000 600 / 600 .CONT .Q10H [facility] Rx#:[id number] Zovirax Inj 585 MG In NS Inj 323.4 / 323.4 161.7 / 161.7 150 ML @ 161.7 mls/hr IV.SIG Q8H [facility] Rx#:[id number] Keppra Inj 500 MG In NS Inj 100 210 / 210 105 / 105 ML @ 400 mls/hr IV.SIG Q6HR [facility] Rx#:[id number] Oral 240 / 240 480 / 480 Output: Urine 300 / 300 Other: # Voids 2 3 # Incontinent Voids 1 Date of Last Bowel Movement 10/05/18 10/05/18 # Bowel Movements 0 2 # Incontinent Bowel Movements 2 - Routine Neurological Exam alert, oriented times three, follow commands CN intact MOTOR no focal deficits - Urinary Catheter Management Straight Cath placed during this visit: yes Reason for continuing: Not indwelling catheter Insertion date: 10/02/18 Insertion time: 05:40 Objective Radiology Results: MRI brain--normal for age Laboratory Results - last 24 hr 10/05/18 10/05/18 10/05/18 09:55 09:55 15:21 Sodium 139 Potassium 4.2 D Chloride 106 Carbon Dioxide 24.7 Anion Gap 8 BUN 4 L Creatinine 0.62 Estimated GFR Greater than 89 Random Glucose 89 Calcium 8.1 L D Total Bilirubin 0.2 AST 28 ALT 18 Alkaline Phosphatase 109 Total Protein 6.9 D Albumin 2.5 L CSF Volume (1) 4.5 CSF Supernat Color (1) Clear CSF Gross Blood (1) 0 CSF Volume (2) 4.5 CSF Supernat Color (2) Clear CSF Gross Blood (2) 0 CSF Volume (3) 4.5 CSF Supernat Color (3) Clear CSF Gross Blood (3) 0 CSF Volume (4) 5.0 CSF Supernat Color (4) Clear CSF Gross Blood (4) 0 CSF WBC (4) 0 CSF RBC (4) 0 CSF Neutrophils % 0 CSF Glucose 53 CSF Total Protein 41.2 Microbiology 10/05/18 09:55 Gram Stain - Final Lumbar Puncture 10/02/18 03:15 Aerobic Blood Culture - Preliminary Blood - Peripheral No growth in 3 days Anaerobic Blood Culture - Preliminary No growth in 3 days 10/02/18 03:20 Aerobic Blood Culture - Preliminary Blood - Peripheral No growth in 3 days Anaerobic Blood Culture - Preliminary No growth in 3 days 10/03/18 11:27 Gram Stain - Final Wound - Abdominal Wound Culture - Preliminary Rare growth normal skin bridgett No anaerobes isolated Review/Management - Diagnosis (1) Seizures Code(s): R56.9 - Unspecified convulsions Status: Acute Current Visit: Yes - Review/Management Plan: complex partial sz---improving on keppra Recommend stop acyclovir if CSF HSV negative
--- NOTE | 2018-10-05 22:42 | MG ---
cc: Guanako Peres MD EEG RECORD NUMBER: [id number] DESCRIPTION: 4-5 Hz posterior rhythm with admixed beta activity. Occasional frontal bursts. Eye movement artifact. Good EEG variability reactivity. Bursts of rhythmic theta occurring epoch 78, followed by rapid burst of theta at epoch 81, lasting for about 10-20 seconds. Bilateral frontal central phase reversal seen at epoch 91. Phase reversals left frontal epoch 96. There is reversal at C3 epoch 115. Limited driving with photic stimulation. Single lead EKG showing sinus rhythm. INTERPRETATION: A couple of brief episodes of rhythmic activity, which may signify seizure activity in addition to phase reversals in the left greater than right frontocentral region occurring in an isolated fashion; however, improved EEG from previous. Clinical correlation. MD MICHELE Whiting/jose , 10:25 PM , 10:30 PM
[2018-10-06] MEDS: Sod Chloride 0.9% Inj 1,000 ML IV.CONT SCH ×4 (00:10→18:44)
[2018-10-06] MEDS: SODIUM CHLOR 0.9% IV.SIG SCH ×3 (00:32→17:28)
[2018-10-06] MEDS: ACYCLOVIR IV.SIG SCH ×3 (00:32→17:28)
--- NOTE | 2018-10-06 07:31 | IR ---
EXAM DATE: 10/05/2018 10:26 AM EST AGE/SEX: 52 years / Female INDICATIONS: Patient presents with Alter Mental Status in need of a Lumbar Puncture to rule out infe ction. CLINICAL DATA: This is the patient's initial encounter. Patient reports that signs and symptoms have been present for 3 days and indicates a pain score of 4/10. MEDICAL/SURGICAL HISTORY: Hypothyroidism. Bowel Obstruction, Migraine, Pulmonary Embolism, TIA. . Abdominal surgery. COMPARISON: No prior exams available for comparison. FLUORO TIME (min): 0.7 IMAGE SERIES: 1 ACCESS SITE: L3-4 LUMBAR PUNCTURE TIME: 0955 hours FLUID: Total volume of 20 cc of clear fluid was removed. Fluid was sent to lab for ordered studies. ; . . PROCEDURE: 1. Fluoroscopic guided lumbar puncture. The risks, benefits and alternatives to the procedure were explained and verbal and written consent w as obtained. The site was prepped in sterile fashion. Full sterile technique was used, including ca p, mask, sterile gloves and gown and a large sterile sheet. Hand hygiene and 2% chlorhexidine and/or betadine/alcohol prep was utilized per protocol for cutaneous antisepsis. The skin and subcutaneous tissues were infiltrated with local anesthetic solution. With fluoroscopic guidance the lumbar thecal sac was punctured at the level above. The fluid describ ed above was removed without difficulty. The patient tolerated the procedure well and there were no complications. CONCLUSION: 1. Uncomplicated fluoroscopically guided lumbar puncture. Electronically signed by: Nilay Dougherty MD 10/06/2018 7:29 AM EST
[2018-10-06] MEDS: Collagenase Oint 30 GM Tube TOPICAL SCH (08:45)
[2018-10-06] MEDS: Magnesium Oxide 400 MG Tablet PO SCH (08:45)
[2018-10-06] MEDS: Metoprolol Tartrate 25 MG Tablet PO SCH ×2 (08:45→20:36)
[2018-10-06] MEDS: Senna/Docusate Sodium 8.6/50 MG Tablet PO SCH ×2 (08:46→20:36)
[2018-10-06 08:53] LABS: Baso # (Auto) 0.1 th/mm3 (0.0-0.2); Baso % (Auto) 1.7 % (0.0-2.0); Eos # (Auto) 0.4 th/mm3 (0.0-0.4); Eos % (Auto) 4.9 % (0.0-4.0); Hematocrit 33.4 % (35.0-46.0); Hemoglobin 11.2 gm/dL (11.6-15.3); Lymph # (Auto) 1.7 th/mm3 (1.0-4.8); Lymph % (Auto) 21.7 % (9.0-44.0); Mean Corpuscular HGB Conc 33.5 % (32.0-36.0); Mean Corpuscular Hemoglobin 32.1 pg (27.0-34.0); Mean Platelet Volume 9.9 fL (7.0-11.0); Mono # (Auto) 0.8 th/mm3 (0.0-0.9); Mono % (Auto) 10.3 % (0.0-8.0); Neut # (Auto) 4.9 th/mm3 (1.8-7.7); Neut % (Auto) 61.4 % (16.0-70.0); Platelet Count 343 th/mm3 (150-450); Red Blood Count 3.48 mil/mm3 (4.00-5.30); Red Cell Distribution Width 16.1 % (11.6-17.2)
[2018-10-06 09:25] LABS: Albumin 2.4 g/dL (3.4-5.0); Anion Gap 8 meq/L (5-15); Aspartate Aminotransferase 27 U/L (15-37); Calcium 7.9 mg/dL (8.5-10.1); Carbon Dioxide 26.8 meq/L (21.0-32.0); Chloride 108 meq/L (98-107); Glomerular Filtration Rate Greater Than 89 mL/min (>89); Glucose,Random 65 mg/dL (74-106); Magnesium 1.6 mg/dL (1.5-2.5); Sodium 143 meq/L (136-145)
--- NOTE | 2018-10-06 09:31 | P.PNIM ---
Subjective Interval history: f/u; encephalopathy in no acute distress. awake and alert. no reported seizures over night. no new complaints. Physical Exam Vital signs: Vital Signs 10/05/18 16:00 10/05/18 20:00 10/06/18 00:00 Temperature 98.4 F 98.5 F 98.5 F Pulse Rate 100 H 114 H 97 H Respiratory Rate 18 20 Blood Pressure 118/62 115/69 115/57 L Pulse Oximetry 98 97 95 10/06/18 04:00 Temperature 98.1 F Pulse Rate 90 Respiratory Rate 18 Blood Pressure 107/58 L Pulse Oximetry 98 Intake & Output 10/05/18 10/06/18 10/06/18 18:59 06:59 18:59 Intake Total 1241.7 / 1241.7 836.7 / 836.7 Output Total 750 / 750 Balance 1241.7 / 1241.7 86.7 / 86.7 Weight 60.5 kg Intake: IV 761.7 / 761.7 476.7 / 476.7 NS Inj 1,000 ML @ 100 mls/hr IV 600 / 600 .CONT .Q10H [facility] Rx#:[id number] Zovirax Inj 585 MG In NS Inj 161.7 / 161.7 161.7 / 161.7 150 ML @ 161.7 mls/hr IV.SIG Q8H [facility] Rx#:[id number] Keppra Inj 500 MG In NS Inj 100 315 / 315 ML @ 400 mls/hr IV.SIG Q6HR [facility] Rx#:[id number] Oral 480 / 480 360 / 360 Output: Urine 750 / 750 Other: # Voids 3 Date of Last Bowel Movement 10/05/18 10/06/18 10/05/18 # Bowel Movements 2 1 - Constitutional no acute distress - Routine Respiratory Exam Present: CTA bilaterally - Routine Cardiovascular Exam Present: RRR - Routine Abdominal Exam Present: soft - Routine Extremities Exam Comments: no pedal edema. - Routine Neurological Exam Present: alert, oriented X3 - Urinary Catheter Management Straight Cath placed during this visit: yes Reason for continuing: Not indwelling catheter Insertion date: 10/02/18 Insertion time: 05:40 Results - Labs CBC & Chem 7: 10/06/18 06:50 10/06/18 06:50 Laboratory Results - last 24 hr 10/05/18 10/05/1818 09:55 09:55 15:21 WBC RBC Hgb Hct MCV MCH MCHC RDW Plt Count MPV Neut % (Auto) Lymph % (Auto) [place] % (Auto) Eos % (Auto) Baso % (Auto) Neut # (Auto) Lymph # (Auto) [place] # (Auto) Eos # (Auto) Baso # (Auto) WBC Differential Differential Comment Sodium 139 Potassium 4.2 D Chloride 106 Carbon Dioxide 24.7 Anion Gap 8 BUN 4 L Creatinine 0.62 Estimated GFR Greater than 89 Random Glucose 89 Calcium 8.1 L D Magnesium Total Bilirubin 0.2 AST 28 ALT 18 Alkaline Phosphatase 109 Total Protein 6.9 D Albumin 2.5 L CSF Volume (1) 4.5 CSF Supernat Color (1) Clear CSF Gross Blood (1) 0 CSF Volume (2) 4.5 CSF Supernat Color (2) Clear CSF Gross Blood (2) 0 CSF Volume (3) 4.5 CSF Supernat Color (3) Clear CSF Gross Blood (3) 0 CSF Volume (4) 5.0 CSF Supernat Color (4) Clear CSF Gross Blood (4) 0 CSF WBC (4) 0 CSF RBC (4) 0 CSF Neutrophils % 0 CSF Glucose 53 CSF Total Protein 41.2 10/06/18 10/06/18 06:50 06:50 WBC 8.0 RBC 3.48 L Hgb 11.2 L Hct 33.4 L MCV 96.0 MCH 32.1 MCHC 33.5 RDW 16.1 Plt Count 343 MPV 9.9 Neut % (Auto) 61.4 Lymph % (Auto) 21.7 [place] % (Auto) 10.3 H Eos % (Auto) 4.9 H Baso % (Auto) 1.7 Neut # (Auto) 4.9 Lymph # (Auto) 1.7 [place] # (Auto) 0.8 Eos # (Auto) 0.4 Baso # (Auto) 0.1 WBC Differential . Differential Comment Auto diff final Sodium 143 Potassium 4.0 Chloride 108 H Carbon Dioxide 26.8 Anion Gap 8 BUN Creatinine 0.54 Estimated GFR Greater than 89 Random Glucose 65 L Calcium 7.9 L Magnesium 1.6 Total Bilirubin AST 27 ALT Alkaline Phosphatase Total Protein Albumin 2.4 L CSF Volume (1) CSF Supernat Color (1) CSF Gross Blood (1) CSF Volume (2) CSF Supernat Color (2) CSF Gross Blood (2) CSF Volume (3) CSF Supernat Color (3) CSF Gross Blood (3) CSF Volume (4) CSF Supernat Color (4) CSF Gross Blood (4) CSF WBC (4) CSF RBC (4) CSF Neutrophils % CSF Glucose CSF Total Protein Microbiology 10/05/18 09:55 Cerebral Spinal Fluid - Lumbar Puncture Acid Fast Bacilli Smear - Final No acid fast bacilli seen 10/03/18 11:27 Wound - Abdominal Gram Stain - Final 10/03/18 11:27 Wound - Abdominal Wound Culture - Final Rare growth normal skin bridgett No anaerobes isolated 10/05/18 09:55 Lumbar Puncture Gram Stain - Final 10/05/18 09:55 Lumbar Puncture CSF Culture - Preliminary No growth in 24 hours 10/02/18 03:15 Blood - Peripheral Aerobic Blood Culture - Preliminary No growth in 3 days 10/02/18 03:15 Blood - Peripheral Anaerobic Blood Culture - Preliminary No growth in 3 days 10/02/18 03:20 Blood - Peripheral Aerobic Blood Culture - Preliminary No growth in 3 days 10/02/18 03:20 Blood - Peripheral Anaerobic Blood Culture - Preliminary No growth in 3 days - Imaging Impressions Head MRI 10/05/18 00:00 CONCLUSION: 1. No acute intracranial findings. 2. Nonspecific mild hyperintensity of the basal ganglia on the T1-weighted images only. Likely an incidental finding. Lumbar Puncture Fluoroscopy 10/05/18 00:00 CONCLUSION: 1. Uncomplicated fluoroscopically guided lumbar puncture. Assessment and Plan - Assessment (1) Encephalopathy Code(s): G93.40 - Encephalopathy, unspecified Status: Acute (2) Opioid dependence Code(s): F11.20 - Opioid dependence, uncomplicated Status: Acute (3) UTI (urinary tract infection) Code(s): N39.0 - Urinary tract infection, site not specified Status: Acute (4) Open abdominal wall wound Code(s): S31.109A - Unspecified open wound of abdominal wall, unspecified quadrant without penetration into peritoneal cavity, initial encounter Status : Chronic (5) Foot fracture Code(s): S92.909A - Unspecified fracture of unspecified foot, initial encounter for closed fracture Status: Acute (6) LUI (acute kidney injury) Code(s): N17.9 - Acute kidney failure, unspecified Status: Acute - Plan Encephalopathy: acute episode of bizarre behavior-putting purse in the microwave, likely multifactorial-acute UTI, underlying Psych disorder, possible opioid withdrawal and dehydration. CT/MRI Head w/ no acute findingsSeen by psych not an indication for IP psych hospitalization. evaluated by neurology and started on Keppra. s/p LP; culture negative so far; Herpes PCR pending; continue IV Acyclovir till resulted. UTI with ESBL- E-coli Ertapenem was stopped- awaiting the repeated UC. ID following. Severe hypokalemia -replaced. Opioid Dependence: previous admit 09/20-09/24, found to have significant opioid dependence, weaned off meds and d/c'd w/ no opioids, tachycardic on arrival- possibly related to withdrawal. Ativan prn. Off narcotics . Abdominal Wall Infection: Chronic. Stable. Healing well LUI: Creatinine 1.25, previously 0.77 on 09/29/18, IVF for hydration, monitor I/ O, repeat labs in am, caution w/ nephrotoxic agents. Foot Fx: Left foot 2nd/3rd/4th toe fractures, s/p splint on previous ER visit, consulted Dr. Truong as patient is not compliant with weightbearing. Seen by yard brakeman appreciate input. DVT Prophylaxis: SCD/Teds Social work for d/c planning as needed. Discharge Planning: within the next 24-48 hrs- pending the LP and UC final results. (4) Open abdominal wall wound Qualifiers:
[2018-10-06 09:33] LABS: Alanine Aminotransferase 18 U/L (10-53); Alkaline Phosphatase 103 U/L (45-117); Blood Urea Nitrogen 3 mg/dL (7-18); Total Protein 6.8 g/dL (6.4-8.2)
--- NOTE | 2018-10-06 13:20 | P.PNID ---
Subjective Remarks: Patient is awake. No complains. Afebrile. Denies PACK. Denies dysuria. Repeat urine culture is pending. This is a 52-year-old white female, who presented to the emergency department with altered mental status. She was recently seen in the hospital and urine culture was taken and came back with extended-spectrum beta-lactamase Escherichia coli. She was put on Macrobid before the final report of the urine culture became available. Past Medical History: PAST MEDICAL HISTORY: Hypothyroidism, migraines, pulmonary embolism, TIA, and bowel obstruction. Allergies/Adverse Reactions: Allergies adhesive Allergy (Verified 09/29/18 15:29) Itching bee venom protein (honey bee) Allergy (Verified 09/26/18 01:15) Unconscious cephalexin [From Keflex] Allergy (Verified 09/26/18 01:15) Anaphylaxis codeine Allergy (Verified 09/26/18 01:15) Itching ketorolac [From Toradol] Allergy (Verified 09/26/18 02:14) Weakness PT STATES POSSIBLE REACTION FROM TORADOL CAUSED STROKE LIKE SYMPTOMS CAUSING HER TO BE STROKE ALERTED. Penicillins Allergy (Verified 09/26/18 01:15) Itching Objective Vital Signs 10/05/18 16:00 10/05/18 20:00 10/06/18 00:00 Temperature 98.4 F 98.5 F 98.5 F Pulse Rate 100 H 114 H 97 H Respiratory Rate 18 20 Blood Pressure 118/62 115/69 115/57 L Pulse Oximetry 98 97 95 10/06/18 04:00 10/06/18 08:00 10/06/18 12:00 Temperature 98.1 F 98 F 98.4 F Pulse Rate 90 101 H 91 H Respiratory Rate 18 17 17 Blood Pressure 107/58 L 120/63 126/59 L Pulse Oximetry 98 99 98 Intake & Output 10/05/18 10/06/18 10/06/18 18:59 06:59 18:59 Intake Total 1241.7 / 1241.7 836.7 / 836.7 161.7 / 161.7 Output Total 750 / 750 Balance 1241.7 / 1241.7 86.7 / 86.7 161.7 / 161.7 Weight 60.5 kg Intake: IV 761.7 / 761.7 476.7 / 476.7 161.7 / 161.7 NS Inj 1,000 ML @ 100 mls/hr IV 600 / 600 .CONT .Q10H [facility] Rx#:[id number] Zovirax Inj 585 MG In NS Inj 161.7 / 161.7 161.7 / 161.7 161.7 / 161.7 150 ML @ 161.7 mls/hr IV.SIG Q8H [facility] Rx#:[id number] Keppra Inj 500 MG In NS Inj 100 315 / 315 ML @ 400 mls/hr IV.SIG Q6HR [facility] Rx#:[id number] Oral 480 / 480 360 / 360 Output: Urine 750 / 750 Other: # Voids 3 Date of Last Bowel Movement 10/05/18 10/06/18 10/05/18 # Bowel Movements 2 1 10/02/18 03:15 Blood - Peripheral Aerobic Blood Culture - Preliminary No growth in 4 days 10/02/18 03:15 Blood - Peripheral Anaerobic Blood Culture - Preliminary No growth in 4 days 10/02/18 03:20 Blood - Peripheral Aerobic Blood Culture - Preliminary No growth in 4 days 10/02/18 03:20 Blood - Peripheral Anaerobic Blood Culture - Preliminary No growth in 4 days 10/05/18 09:55 Cerebral Spinal Fluid - Lumbar Puncture Acid Fast Bacilli Smear - Final No acid fast bacilli seen 10/05/18 09:55 Cerebral Spinal Fluid - Lumbar Puncture Mycobacterial Culture - Pending 10/03/18 11:27 Wound - Abdominal Gram Stain - Final 10/03/18 11:27 Wound - Abdominal Wound Culture - Final Rare growth normal skin bridgett No anaerobes isolated 10/05/18 09:55 Lumbar Puncture Gram Stain - Final 10/05/18 09:55 Lumbar Puncture CSF Culture - Preliminary No growth in 24 hours 10/05/18 16:21 Clean Catch Urine Urine Culture - Pending 10/05/18 09:55 Cerebral Spinal Fluid - Lumbar Puncture Fungal Smear - Pending 10/05/18 09:55 Cerebral Spinal Fluid - Lumbar Puncture Fungal Culture - Pending Lab - Hematology Results 10/04/18 10/06/18 16:02 06:50 WBC 6.4 8.0 RBC 2.95 L 3.48 L Hgb 9.5 L 11.2 L Hct 28.4 L 33.4 L MCV 96.2 96.0 MCH 32.4 32.1 MCHC 33.7 33.5 RDW 16.2 16.1 Plt Count 308 343 MPV 9.6 9.9 Neut % (Auto) 70.5 H 61.4 Lymph % (Auto) 19.3 21.7 [place] % (Auto) 8.6 H 10.3 H Eos % (Auto) 0.2 4.9 H Baso % (Auto) 1.4 1.7 Neut # (Auto) 4.5 4.9 Lymph # (Auto) 1.2 1.7 [place] # (Auto) 0.5 0.8 Eos # (Auto) 0.0 0.4 Baso # (Auto) 0.1 0.1 WBC Differential . . Differential Comment Auto diff final Auto diff final Lab - Chemistry Results 10/04/18 10/04/18 10/05/18 14:07 16:02 15:21 Sodium 143 139 Potassium 2.8 L* D 4.2 D Chloride 109 H 106 Carbon Dioxide 23.4 24.7 Anion Gap 11 8 BUN 8 4 L Creatinine 0.47 L 0.62 Estimated GFR Greater than 89 Greater than 89 POC Glucose 107 Random Glucose 88 89 Calcium 7.2 L* 8.1 L D Prot Corrected Calcium 7.8 L Magnesium Total Bilirubin 0.2 0.2 AST 16 28 ALT 16 18 Alkaline Phosphatase 93 109 Total Protein 6.0 L D 6.9 D Albumin 2.1 L 2.5 L 10/06/18 06:50 Sodium 143 Potassium 4.0 Chloride 108 H Carbon Dioxide 26.8 Anion Gap 8 BUN 3 L Creatinine 0.54 Estimated GFR Greater than 89 POC Glucose Random Glucose 65 L Calcium 7.9 L Prot Corrected Calcium Magnesium 1.6 Total Bilirubin 0.3 AST 27 ALT 18 Alkaline Phosphatase 103 Total Protein 6.8 Albumin 2.4 L Imaging: ITS Impressions Head CT 10/04/18 14:25 CONCLUSION: 1. No acute intracranial abnormality. . Chest X-Ray 10/04/18 14:26 CONCLUSION: No acute abnormality is seen. Head MRI 10/05/18 00:00 CONCLUSION: 1. No acute intracranial findings. 2. Nonspecific mild hyperintensity of the basal ganglia on the T1-weighted images only. Likely an incidental finding. Lumbar Puncture Fluoroscopy 10/05/18 00:00 CONCLUSION: 1. Uncomplicated fluoroscopically guided lumbar puncture. Physical Exam: PHYSICAL EXAMINATION: GENERAL: No acute distress. She is awake and alert and oriented. HEENT: Head is atraumatic. Extraocular movements are grossly intact. Pupils reactive to light. No icterus. Oropharynx moist mucosa without visible lesions. NECK: Supple. No adenopathy. LUNGS: Clear BS. HEART: Regular S1 and S2, without audible murmurs, rubs or gallops. ABDOMEN: Bowel sounds present. Soft, Non tender. EXTREMITIES: No clubbing or cyanosis. SKIN: No diffuse rash. NEUROLOGIC: Nonfocal. PSYCHIATRIC: Calm and cooperative. Assessment and Plan - Plan ASSESSMENT: 1. Urinary tract infection due to extended-spectrum beta-lactamase Escherichia coli. 2. Acute kidney disease. Improved. RECOMMENDATIONS: Okay to discharge without antibiotics if the urine culture is negative. Otherwise call ID wardrobe image consultant if needed.
[2018-10-06] MEDS: levETIRAcetam 250 MG Tablet PO SCH (19:05)
[2018-10-07] MEDS: Sod Chloride 0.9% Inj 1,000 ML IV.CONT SCH ×3 (04:08→23:47)
--- NOTE | 2018-10-07 08:24 | P.PNIM ---
Subjective Interval history: f/u; encephalopathy in no acute distress. awake and alert. denies pain. no fever. Physical Exam Vital signs: Vital Signs 10/06/18 12:00 10/06/18 16:00 10/06/18 20:00 Temperature 98.4 F 99 F 98.2 F Pulse Rate 86 95 H 83 Respiratory Rate 17 16 14 Blood Pressure 126/59 L 116/60 111/57 L Pulse Oximetry 98 98 96 10/07/18 00:00 10/07/18 04:00 Temperature 98.1 F 97.9 F Pulse Rate 92 H 98 H Respiratory Rate 12 16 Blood Pressure 129/61 130/60 Pulse Oximetry 100 97 Intake & Output 10/06/18 10/07/18 10/07/18 18:59 06:59 18:59 Intake Total 2248.4 / 2248.4 1380 / 1380 Output Total 1000 / 1000 Balance 1248.4 / 1248.4 1380 / 1380 Weight 64.2 kg Intake: IV 1428.4 / 1428.4 900 / 900 NS Inj 1,000 ML @ 100 mls/hr IV 1000 / 1000 900 / 900 .CONT .Q10H MARIELLA Rx#:[id number] Zovirax Inj 585 MG In NS Inj 323.4 / 323.4 150 ML @ 161.7 mls/hr IV.SIG Q8H MARIELLA Rx#:[id number] Keppra Inj 500 MG In NS Inj 100 105 / 105 ML @ 400 mls/hr IV.SIG Q6HR MARIELLA Rx#:[id number] Oral 820 / 820 480 / 480 Output: Urine 1000 / 1000 Other: # Voids 5 Date of Last Bowel Movement 10/05/18 10/05/18 # Bowel Movements 1 4 - Constitutional no acute distress - Routine Respiratory Exam Present: CTA bilaterally - Routine Cardiovascular Exam Present: RRR - Routine Abdominal Exam Present: soft - Routine Extremities Exam Comments: no pedal edema. - Routine Neurological Exam Present: alert - Urinary Catheter Management Straight Cath placed during this visit: yes Reason for continuing: Not indwelling catheter Insertion date: 10/02/18 Insertion time: 05:40 Results - Labs CBC & Chem 7: 10/06/18 06:50 10/06/18 06:50 Laboratory Results - last 24 hr 10/05/18 10/06/18 10/06/18 09:55 06:50 06:50 WBC 8.0 RBC 3.48 L Hgb 11.2 L Hct 33.4 L MCV 96.0 MCH 32.1 MCHC 33.5 RDW 16.1 Plt Count 343 MPV 9.9 Neut % (Auto) 61.4 Lymph % (Auto) 21.7 [place] % (Auto) 10.3 H Eos % (Auto) 4.9 H Baso % (Auto) 1.7 Neut # (Auto) 4.9 Lymph # (Auto) 1.7 [place] # (Auto) 0.8 Eos # (Auto) 0.4 Baso # (Auto) 0.1 WBC Differential . Differential Comment Auto diff final Sodium 143 Potassium 4.0 Chloride 108 H Carbon Dioxide 26.8 Anion Gap 8 BUN 3 L Creatinine 0.54 Estimated GFR Greater than 89 Random Glucose 65 L Calcium 7.9 L Magnesium 1.6 Total Bilirubin 0.3 AST 27 ALT 18 Alkaline Phosphatase 103 Total Protein 6.8 Albumin 2.4 L CSF Herpes I DNA (PCR) Negative CSF Herpes II DNA (PCR) Negative Stl C.difficile DNA Amp St C. diff Tox Epid 027 10/06/18 16:33 WBC RBC Hgb Hct MCV MCH MCHC RDW Plt Count MPV Neut % (Auto) Lymph % (Auto) [place] % (Auto) Eos % (Auto) Baso % (Auto) Neut # (Auto) Lymph # (Auto) [place] # (Auto) Eos # (Auto) Baso # (Auto) WBC Differential Differential Comment Sodium Potassium Chloride Carbon Dioxide Anion Gap BUN Creatinine Estimated GFR Random Glucose Calcium Magnesium Total Bilirubin AST ALT Alkaline Phosphatase Total Protein Albumin CSF Herpes I DNA (PCR) CSF Herpes II DNA (PCR) Stl C.difficile DNA Amp Negative St C. diff Tox Epid 027 Negative Microbiology 10/05/18 09:55 Lumbar Puncture Gram Stain - Final 10/05/18 09:55 Lumbar Puncture CSF Culture - Preliminary No growth in 48 hours 10/05/18 09:55 Cerebral Spinal Fluid - Lumbar Puncture Fungal Smear - Final No fungal elements seen 10/02/18 03:15 Blood - Peripheral Aerobic Blood Culture - Preliminary No growth in 4 days 10/02/18 03:15 Blood - Peripheral Anaerobic Blood Culture - Preliminary No growth in 4 days 10/02/18 03:20 Blood - Peripheral Aerobic Blood Culture - Preliminary No growth in 4 days 10/02/18 03:20 Blood - Peripheral Anaerobic Blood Culture - Preliminary No growth in 4 days 10/05/18 09:55 Cerebral Spinal Fluid - Lumbar Puncture Acid Fast Bacilli Smear - Final No acid fast bacilli seen 10/03/18 11:27 Wound - Abdominal Gram Stain - Final 10/03/18 11:27 Wound - Abdominal Wound Culture - Final Rare growth normal skin bridgett No anaerobes isolated Assessment and Plan - Assessment (1) Encephalopathy Code(s): G93.40 - Encephalopathy, unspecified Status: Acute (2) Opioid dependence Code(s): F11.20 - Opioid dependence, uncomplicated Status: Acute (3) UTI (urinary tract infection) Code(s): N39.0 - Urinary tract infection, site not specified Status: Acute (4) Open abdominal wall wound Code(s): S31.109A - Unspecified open wound of abdominal wall, unspecified quadrant without penetration into peritoneal cavity, initial encounter Status : Chronic (5) Foot fracture Code(s): S92.909A - Unspecified fracture of unspecified foot, initial encounter for closed fracture Status: Acute (6) LUI (acute kidney injury) Code(s): N17.9 - Acute kidney failure, unspecified Status: Acute - Plan Encephalopathy: acute episode of bizarre behavior-putting purse in the microwave, likely multifactorial-acute UTI, underlying Psych disorder, possible opioid withdrawal and dehydration. CT/MRI Head w/ no acute findings- Seen by psych not an indication for IP psych hospitalization. evaluated by neurology and started on Keppra. s/p LP; culture negative so far; Herpes negative; IV Acyclovir was dc';ed. UTI with ESBL- E-coli Ertapenem was stopped- awaiting the repeated UC. ID follow-up appreciated. Severe hypokalemia -replaced. Opioid Dependence: previous admit 09/20-09/24, found to have significant opioid dependence, weaned off meds and d/c'd w/ no opioids, tachycardic on arrival- possibly related to withdrawal. Ativan prn. Off narcotics . Abdominal Wall Infection: Chronic. Stable. Healing well LUI: improved. Foot Fx: Left foot 2nd/3rd/4th toe fractures, s/p splint on previous ER visit, consulted Dr. Truong as patient is not compliant with weightbearing. Seen by finisher hand appreciate input; recommended wrap left foot with BORIS wrap to knee / CAM walker/Walking boot / heel weight bear with walker assist and f/u as outpatient. DVT Prophylaxis: SCD/Teds Discharge Planning: dc to [place] within the next 24 hrs- if stable- pending the UC. (4) Open abdominal wall wound Qualifiers:
[2018-10-07] MEDS: Senna/Docusate Sodium 8.6/50 MG Tablet PO SCH ×2 (09:33→20:57)
[2018-10-07] MEDS: Metoprolol Tartrate 25 MG Tablet PO SCH ×2 (09:33→20:58)
[2018-10-07] MEDS: levETIRAcetam 250 MG Tablet PO SCH (09:33)
[2018-10-07] MEDS: Magnesium Oxide 400 MG Tablet PO SCH (09:33)
[2018-10-07] MEDS: Collagenase Oint 30 GM Tube TOPICAL SCH (09:34)
[2018-10-07 10:17] LABS: Baso # (Auto) 0.1 th/mm3 (0.0-0.2); Eos # (Auto) 0.1 th/mm3 (0.0-0.4); Eos % (Auto) 1.3 % (0.0-4.0); Hemoglobin 11.3 gm/dL (11.6-15.3); Lymph # (Auto) 0.7 th/mm3 (1.0-4.8); Mean Corpuscular HGB Conc 33.1 % (32.0-36.0); Mean Corpuscular Hemoglobin 31.6 pg (27.0-34.0); Mean Corpuscular Volume 95.4 fL (80.0-100.0); Mean Platelet Volume 9.3 fL (7.0-11.0); Mono # (Auto) 0.5 th/mm3 (0.0-0.9); Mono % (Auto) 7.3 % (0.0-8.0); Neut # (Auto) 4.9 th/mm3 (1.8-7.7); Neut % (Auto) 79.4 % (16.0-70.0); Platelet Count 375 th/mm3 (150-450); Red Blood Count 3.56 mil/mm3 (4.00-5.30); White Blood Count 6.2 th/mm3 (4.0-11.0)
[2018-10-07 10:35] LABS: Alanine Aminotransferase 15 U/L (10-53); Albumin 2.4 g/dL (3.4-5.0); Anion Gap 10 meq/L (5-15); Aspartate Aminotransferase 21 U/L (15-37); Blood Urea Nitrogen 4 mg/dL (7-18); Calcium 7.9 mg/dL (8.5-10.1); Carbon Dioxide 27.5 meq/L (21.0-32.0); Chloride 107 meq/L (98-107); Glomerular Filtration Rate Greater Than 89 mL/min (>89); Glucose,Random 80 mg/dL (74-106); Magnesium 1.5 mg/dL (1.5-2.5); Potassium 3.4 meq/L (3.5-5.1); Sodium 144 meq/L (136-145)
[2018-10-07 10:37] LABS: Alkaline Phosphatase 103 U/L (45-117); Total Protein 6.8 g/dL (6.4-8.2)
--- NOTE | 2018-10-07 11:05 | P.PNNEU ---
Subjective Subjective Comments: patient had generalized seizure today. self limited. Not actively seizing at present Active Medications: Active Medications Acetaminophen (Tylenol) 650 mg PO Q4H PRN PRN Reason: Temp > 100.4 Last Admin: 10/07/18 09:37 Dose: 650 mg Al Hydroxide/Mg Hydroxide (Milk Of Magnesia Liq) 30 ml PO Q12H PRN PRN Reason: Mild Constipation Bisacodyl (Dulcolax Supp) 10 mg RECTAL DAILY PRN PRN Reason: SEVERE CONSITIPATION Calcium Carbonate (Tums Chew) 500 mg CHEW BID [facility] Last Admin: 10/07/18 09:33 Dose: 500 mg Collagenase (Santyl Oint) 1 applicatio TOPICAL DAILY [facility] Last Admin: 10/07/18 09:34 Dose: 1 applicatio Sodium Chloride (Ns Inj) 1,000 mls @ 100 mls/hr IV.CONT .Q10H [facility] Last Admin: 10/07/18 04:08 Dose: 100 mls/hr Fosphenytoin Sodium 1,000 mgpe (/ Sodium Chloride) 70 mls @ 280 mls/hr IV.SIG ONCE ONE Stop: 10/07/18 11:09 Fosphenytoin Sodium 100 mgpe/ (Sodium Chloride) 52 mls @ 208 mls/hr IV.SIG Q8HR [facility]IELLA Levetiracetam (Keppra 1000 Mg/100 Ml Premix) 100 mls @ 400 mls/hr IV.SIG Q8HR MARIELLA Lactulose (Lactulose Liq) 30 ml PO DAILY PRN PRN Reason: SEVERE CONSITIPATION Lorazepam (Ativan Inj) 1 mg IV.PUSH Q2H PRN PRN Reason: AGITATION/ANXIETY Last Admin: 10/07/18 10:02 Dose: 1 mg Magnesium Oxide (Mag-Ox) 400 mg PO DAILY [facility] Stop: 10/09/18 09:01 Last Admin: 10/07/18 09:33 Dose: 400 mg Metoprolol Tartrate (Lopressor) 50 mg PO BID [facility] Last Admin: 10/07/18 09:33 Dose: 50 mg Ondansetron HCl (Zofran Inj) 4 mg IV.PUSH Q6H PRN PRN Reason: NAUSEA OR VOMITING Senna/Docusate Sodium (Lin-Colace) 1 tab PO BID [facility] Last Admin: 10/07/18 09:33 Dose: Not Given Sennosides (Senokot) 17.2 mg PO Q12H PRN PRN Reason: Moderate Constipation Sodium Chloride (Ns Flush) 2 ml IV.FLUSH PRN PRN PRN Reason: FLUSH AFTER USING IV ACCESS Last Admin: 10/04/18 04:05 Dose: 2 ml Allergies/Adverse Reactions: Allergies Allergy/AdvReac Type Severity Reaction Status Date / Time adhesive Allergy Itching Verified 09/29/18 15:29 bee venom protein (honey bee) Allergy Unconscious Verified 09/26/18 01:15 cephalexin [From Keflex] Allergy Anaphylaxis Verified 09/26/18 01:15 codeine Allergy Itching Verified 09/26/18 01:15 ketorolac [From Toradol] Allergy Weakness Verified 09/26/18 02:14 Penicillins Allergy Itching Verified 09/26/18 01:15 Physical Exam Vital signs: Vital Signs 10/06/18 12:00 10/06/18 16:00 10/06/18 20:00 Temperature 98.4 F 99 F 98.2 F Pulse Rate 86 95 H 83 Respiratory Rate 17 16 14 Blood Pressure 126/59 L 116/60 111/57 L Pulse Oximetry 98 98 96 10/07/18 00:00 10/07/18 04:00 10/07/18 08:00 Temperature 98.1 F 97.9 F 98.2 F Pulse Rate 92 H 98 H 117 H Respiratory Rate 12 16 20 Blood Pressure 129/61 130/60 138/67 Pulse Oximetry 100 97 96 Intake & Output 10/06/18 10/07/18 10/07/18 18:59 06:59 18:59 Intake Total 2248.4 / 2248.4 1380 / 1380 Output Total 1000 / 1000 Balance 1248.4 / 1248.4 1380 / 1380 Weight 64.2 kg Intake: IV 1428.4 / 1428.4 900 / 900 NS Inj 1,000 ML @ 100 mls/hr IV 1000 / 1000 900 / 900 .CONT .Q10H MARIELLA Rx#:[id number] Zovirax Inj 585 MG In NS Inj 323.4 / 323.4 150 ML @ 161.7 mls/hr IV.SIG Q8H [facility]IELLA Rx#:[id number] Keppra Inj 500 MG In NS Inj 100 105 / 105 ML @ 400 mls/hr IV.SIG Q6HR MARIELLA Rx#:[id number] Oral 820 / 820 480 / 480 Output: Urine 1000 / 1000 Other: # Voids 5 Date of Last Bowel Movement 10/05/18 10/05/18 # Bowel Movements 1 4 - Routine Neurological Exam lethargic but arouses easily and follow commands. CN intact MOTOR--generalized weak, move right upper > left upper extremity appears post ictal but no sign of active sz. - Urinary Catheter Management Straight Cath placed during this visit: yes Reason for continuing: Not indwelling catheter Insertion date: 10/02/18 Insertion time: 05:40 Objective Laboratory Results - last 24 hr 10/05/18 10/06/18 10/07/18 09:55 16:33 08:48 WBC 6.2 RBC 3.56 L Hgb 11.3 L Hct 34.0 L MCV 95.4 MCH 31.6 MCHC 33.1 RDW 16.0 Plt Count 375 MPV 9.3 Neut % (Auto) 79.4 H Lymph % (Auto) 11.0 [place] % (Auto) 7.3 Eos % (Auto) 1.3 Baso % (Auto) 1.0 Neut # (Auto) 4.9 Lymph # (Auto) 0.7 L [place] # (Auto) 0.5 Eos # (Auto) 0.1 Baso # (Auto) 0.1 WBC Differential . Differential Comment Auto diff final Sodium Potassium Chloride Carbon Dioxide Anion Gap BUN Creatinine Estimated GFR Random Glucose Calcium Magnesium Total Bilirubin AST ALT Alkaline Phosphatase Total Protein Albumin CSF Herpes I DNA (PCR) Negative CSF Herpes II DNA (PCR) Negative Stl C.difficile DNA Amp Negative St C. diff Tox Epid 027 Negative 10/07/18 08:48 WBC RBC Hgb Hct MCV MCH MCHC RDW Plt Count MPV Neut % (Auto) Lymph % (Auto) [place] % (Auto) Eos % (Auto) Baso % (Auto) Neut # (Auto) Lymph # (Auto) [place] # (Auto) Eos # (Auto) Baso # (Auto) WBC Differential Differential Comment Sodium 144 Potassium 3.4 L Chloride 107 Carbon Dioxide 27.5 Anion Gap 10 BUN 4 L Creatinine 0.50 Estimated GFR Greater than 89 Random Glucose 80 Calcium 7.9 L Magnesium 1.5 Total Bilirubin 0.2 AST 21 ALT 15 Alkaline Phosphatase 103 Total Protein 6.8 Albumin 2.4 L CSF Herpes I DNA (PCR) CSF Herpes II DNA (PCR) Stl C.difficile DNA Amp St C. diff Tox Epid 027 Microbiology 10/05/18 09:55 Gram Stain - Final Lumbar Puncture CSF Culture - Preliminary No growth in 48 hours 10/05/18 09:55 Fungal Smear - Final Cerebral Spinal Fluid - Lumbar Puncture No fungal elements seen 10/02/18 03:15 Aerobic Blood Culture - Preliminary Blood - Peripheral No growth in 4 days Anaerobic Blood Culture - Preliminary No growth in 4 days 10/02/18 03:20 Aerobic Blood Culture - Preliminary Blood - Peripheral No growth in 4 days Anaerobic Blood Culture - Preliminary No growth in 4 days 10/05/18 09:55 Acid Fast Bacilli Smear - Final Cerebral Spinal Fluid - Lumbar Puncture No acid fast bacilli seen 10/03/18 11:27 Gram Stain - Final Wound - Abdominal Wound Culture - Final Rare growth normal skin bridgett No anaerobes isolated Review/Management - Diagnosis (1) Seizures Code(s): R56.9 - Unspecified convulsions Status: Acute Current Visit: Yes - Review/Management Plan: add cerebyx to keppra and change keppra to iv check phenytoin level in am I agree with dc acyclovir with negative CSF.
[2018-10-07] MEDS ORDERED: Sodium Chloride 0.9% 2 ML Flush PRN IV.FLUSH (11:56)
[2018-10-07] MEDS ORDERED: Fosphenytoin Inj 1,000 MGPE in Sodium Chlor 0.9% Inj 50 ML IV.SIG ONE (12:00)
[2018-10-07] MEDS: Fosphenytoin Inj 100 MGPE in Sodium Chlor 0.9% Inj 50 ML IV.SIG SCH ×2 (14:12→21:00)
[2018-10-07] MEDS: levETIRAcetam 1000mg/100mL Inj 100 ML IV.SIG SCH ×2 (14:13→21:00)
[2018-10-07] MEDS: Sodium Chloride 0.9% 2 ML Flush BID IV.FLUSH SCH (20:58)
[2018-10-08] MEDS: levETIRAcetam 1000mg/100mL Inj 100 ML IV.SIG SCH (05:06)
[2018-10-08] MEDS: Fosphenytoin Inj 100 MGPE in Sodium Chlor 0.9% Inj 50 ML IV.SIG SCH (05:36)
[2018-10-08] MEDS: Metoprolol Tartrate 25 MG Tablet PO SCH ×2 (08:39→21:21)
[2018-10-08] MEDS: Senna/Docusate Sodium 8.6/50 MG Tablet PO SCH ×2 (08:39→21:22)
[2018-10-08 08:40] LABS: Baso # (Auto) 0.1 th/mm3 (0.0-0.2); Baso % (Auto) 1.5 % (0.0-2.0); Eos # (Auto) 0.3 th/mm3 (0.0-0.4); Eos % (Auto) 5.3 % (0.0-4.0); Hemoglobin 9.8 gm/dL (11.6-15.3); Lymph # (Auto) 1.1 th/mm3 (1.0-4.8); Lymph % (Auto) 16.2 % (9.0-44.0); Mean Corpuscular HGB Conc 33.7 % (32.0-36.0); Mean Corpuscular Hemoglobin 32.1 pg (27.0-34.0); Mean Corpuscular Volume 95.1 fL (80.0-100.0); Mean Platelet Volume 9.2 fL (7.0-11.0); Mono # (Auto) 0.8 th/mm3 (0.0-0.9); Mono % (Auto) 11.7 % (0.0-8.0); Neut # (Auto) 4.3 th/mm3 (1.8-7.7); Neut % (Auto) 65.3 % (16.0-70.0); Platelet Count 309 th/mm3 (150-450); Red Blood Count 3.04 mil/mm3 (4.00-5.30); Red Cell Distribution Width 15.8 % (11.6-17.2); White Blood Count 6.6 th/mm3 (4.0-11.0)
[2018-10-08] MEDS: Collagenase Oint 30 GM Tube TOPICAL SCH (08:40)
[2018-10-08] MEDS: Magnesium Oxide 400 MG Tablet PO SCH (08:40)
[2018-10-08] MEDS: Sodium Chloride 0.9% 2 ML Flush BID IV.FLUSH SCH ×2 (08:40→21:22)
[2018-10-08 09:01] LABS: Anion Gap 9 meq/L (5-15); Aspartate Aminotransferase 23 U/L (15-37); Blood Urea Nitrogen 5 mg/dL (7-18); Calcium 7.6 mg/dL (8.5-10.1); Chloride 111 meq/L (98-107); Glomerular Filtration Rate Greater Than 89 mL/min (>89); Glucose,Random 71 mg/dL (74-106); Magnesium 1.7 mg/dL (1.5-2.5); Potassium 3.4 meq/L (3.5-5.1); Sodium 146 meq/L (136-145)
[2018-10-08 09:03] LABS: Alanine Aminotransferase 13 U/L (10-53)
[2018-10-08 09:04] LABS: Alkaline Phosphatase 89 U/L (45-117); Phenytoin (Dilantin) 12.6 mcg/mL (10.0-20.0); Total Protein 5.6 g/dL (6.4-8.2)
[2018-10-08] MEDS: Sod Chloride 0.9% Inj 1,000 ML IV.CONT SCH ×2 (09:51→21:21)
--- NOTE | 2018-10-08 10:22 | P.PNIM ---
Subjective Interval history: f/u; seizure/encephalopathy in no acute distress. looks better today. no further seizures after the seizure that she had yesterday. no fever. Physical Exam Vital signs: Vital Signs 10/07/18 12:00 10/07/18 16:00 10/07/18 20:00 Temperature 97.4 F L 97.4 F L 98.0 F Pulse Rate 106 H 109 H 81 Respiratory Rate 20 20 18 Blood Pressure 114/58 L 100/50 L 110/57 L Pulse Oximetry 97 97 100 10/08/18 00:00 10/08/18 04:00 10/08/18 08:00 Temperature 97.8 F 98.0 F 97.8 F Pulse Rate 87 98 H 104 H Respiratory Rate 16 20 Blood Pressure 106/55 L 112/57 L 124/83 Pulse Oximetry 98 97 98 Intake & Output 10/07/18 10/08/18 10/08/18 18:59 06:59 18:59 Intake Total 1702 / 1702 2358 / 2358 396 / 396 Balance 1702 / 1702 2358 / 2358 396 / 396 Weight 64.2 kg Intake: IV 1222 / 1222 1908 / 1908 396 / 396 NS Inj 1,000 ML @ 100 mls/hr IV 1000 / 1000 1604 / 1604 396 / 396 .CONT .Q10H MARIELLA Rx#:[id number] Cerebyx Inj 100 MGPE In NS Inj 52 / 52 104 / 104 50 ML @ 208 mls/hr IV.SIG Q8HR MARIELLA Rx#:[id number] Cerebyx Inj 1,000 MGPE In NS 70 / 70 Inj 50 ML @ 280 mls/hr IV.SIG ONCE ONE Rx#:[id number] Keppra 1000 mg/100 mL Premix 100 / 100 200 / 200 100 ML @ 400 mls/hr IV.SIG Q8HR MARIELLA Rx#:[id number] Oral 480 / 480 450 / 450 Other: # Voids 0 Date of Last Bowel Movement 10/07/18 # Bowel Movements 0 - Constitutional no acute distress - Routine Respiratory Exam Present: CTA bilaterally - Routine Cardiovascular Exam Present: RRR - Routine Abdominal Exam Present: soft - Routine Extremities Exam Comments: no pedal edema. - Routine Neurological Exam Present: alert - Urinary Catheter Management Straight Cath placed during this visit: yes Reason for continuing: Not indwelling catheter Insertion date: 10/02/18 Insertion time: 05:40 Results - Labs CBC & Chem 7: 10/08/18 07:18 10/08/18 07:18 Laboratory Results - last 24 hr 10/07/18 10/08/18 10/08/18 08:48 07:18 07:18 WBC 6.6 RBC 3.04 L Hgb 9.8 L Hct 29.0 L MCV 95.1 MCH 32.1 MCHC 33.7 RDW 15.8 Plt Count 309 MPV 9.2 Neut % (Auto) 65.3 Lymph % (Auto) 16.2 [place] % (Auto) 11.7 H Eos % (Auto) 5.3 H Baso % (Auto) 1.5 Neut # (Auto) 4.3 Lymph # (Auto) 1.1 [place] # (Auto) 0.8 Eos # (Auto) 0.3 Baso # (Auto) 0.1 WBC Differential . Differential Comment Auto diff final Sodium 144 146 H Potassium 3.4 L 3.4 L Chloride 107 111 H Carbon Dioxide 27.5 26.0 Anion Gap 10 9 BUN 4 L 5 L Creatinine 0.50 0.48 L Estimated GFR Greater than 89 Greater than 89 Random Glucose 80 71 L Calcium 7.9 L 7.6 L Magnesium 1.5 1.7 Total Bilirubin 0.2 0.1 L AST 21 23 ALT 15 13 Alkaline Phosphatase 103 89 Total Protein 6.8 5.6 L D Albumin 2.4 L 2.0 L Phenytoin 12.6 Microbiology 10/05/18 16:21 Clean Catch Urine Urine Culture - Preliminary Group D Enterococcus 10/05/18 09:55 Lumbar Puncture Gram Stain - Final 10/05/18 09:55 Lumbar Puncture CSF Culture - Final No growth in 72 hours 10/02/18 03:15 Blood - Peripheral Aerobic Blood Culture - Final No growth in 5 days 10/02/18 03:15 Blood - Peripheral Anaerobic Blood Culture - Final No growth in 5 days 10/02/18 03:20 Blood - Peripheral Aerobic Blood Culture - Final No growth in 5 days 10/02/18 03:20 Blood - Peripheral Anaerobic Blood Culture - Final No growth in 5 days Assessment and Plan - Assessment (1) Encephalopathy Code(s): G93.40 - Encephalopathy, unspecified Status: Acute (2) Opioid dependence Code(s): F11.20 - Opioid dependence, uncomplicated Status: Acute (3) UTI (urinary tract infection) Code(s): N39.0 - Urinary tract infection, site not specified Status: Acute (4) Open abdominal wall wound Code(s): S31.109A - Unspecified open wound of abdominal wall, unspecified quadrant without penetration into peritoneal cavity, initial encounter Status : Chronic (5) Foot fracture Code(s): S92.909A - Unspecified fracture of unspecified foot, initial encounter for closed fracture Status: Acute (6) LUI (acute kidney injury) Code(s): N17.9 - Acute kidney failure, unspecified Status: Acute - Plan Encephalopathy: acute episode of bizarre behavior-putting purse in the microwave, likely multifactorial-acute UTI, underlying Psych disorder, possible opioid withdrawal and dehydration. CT/MRI Head w/ no acute findings- Seen by psych not an indication for IP psych hospitalization. evaluated by neurology and started on Keppra. s/p LP; culture negative so far; Herpes negative; IV Acyclovir was dc';ed. seizure back on IV Keppra- started on Fosphenytoin after she had a seizure on 10/07. neurology f/u appreciated. UTI with ESBL- E-coli Ertapenem was stopped- awaiting the repeated UC. ID follow-up appreciated. hypokalemia -will replace as needed. Opioid Dependence: previous admit 09/20-09/24, found to have significant opioid dependence, weaned off meds and d/c'd w/ no opioids, tachycardic on arrival- possibly related to withdrawal. Ativan prn. Off narcotics . Abdominal Wall Infection: Chronic. Stable. Healing well LUI: improved. Foot Fx: Left foot 2nd/3rd/4th toe fractures, s/p splint on previous ER visit, consulted Dr. Truong as patient is not compliant with weightbearing. Seen by tablet coater appreciate input; recommended wrap left foot with BORIS wrap to knee / CAM walker/Walking boot / heel weight bear with walker assist and f/u as outpatient. DVT Prophylaxis: SCD/Teds Discharge Planning: dc to [place] within the next 24 hrs- if stable/ seizure free- pending the UC and neurology clearance. (4) Open abdominal wall wound Qualifiers:
--- NOTE | 2018-10-08 12:31 | P.PNNEU ---
Subjective Subjective Comments: Subjective Cross cover Patient states she is a history of seizures was on Topamax in the past relocated from [place] area has not been taking it. She tolerated it well. She has a history of migraines as well. Active Medications: Active Medications Acetaminophen (Tylenol) 650 mg PO Q4H PRN PRN Reason: Temp > 100.4 Last Admin: 10/07/18 09:37 Dose: 650 mg Al Hydroxide/Mg Hydroxide (Milk Of Magnesia Liq) 30 ml PO Q12H PRN PRN Reason: Mild Constipation Bisacodyl (Dulcolax Supp) 10 mg RECTAL DAILY PRN PRN Reason: SEVERE CONSITIPATION Calcium Carbonate (Tums Chew) 500 mg CHEW BID [facility] Last Admin: 10/08/18 08:40 Dose: 500 mg Collagenase (Santyl Oint) 1 applicatio TOPICAL DAILY [facility] Last Admin: 10/08/18 08:40 Dose: 1 applicatio Sodium Chloride (Ns Inj) 1,000 mls @ 100 mls/hr IV.CONT .Q10H [facility] Last Admin: 10/08/18 09:51 Dose: 100 mls/hr Fosphenytoin Sodium 100 mgpe/ (Sodium Chloride) 52 mls @ 208 mls/hr IV.SIG Q8HR [facility] Last Infusion: 10/08/18 05:50 Dose: Infused Levetiracetam (Keppra 1000 Mg/100 Ml Premix) 100 mls @ 400 mls/hr IV.SIG Q8HR [facility] Last Infusion: 10/08/18 05:36 Dose: Infused Lactulose (Lactulose Liq) 30 ml PO DAILY PRN PRN Reason: SEVERE CONSITIPATION Lorazepam (Ativan Inj) 1 mg IV.PUSH Q2H PRN PRN Reason: AGITATION/ANXIETY Last Admin: 10/07/18 20:58 Dose: 1 mg Magnesium Oxide (Mag-Ox) 400 mg PO DAILY [facility] Stop: 10/09/18 09:01 Last Admin: 10/08/18 08:40 Dose: 400 mg Metoprolol Tartrate (Lopressor) 50 mg PO BID [facility] Last Admin: 10/08/18 08:39 Dose: 50 mg Ondansetron HCl (Zofran Inj) 4 mg IV.PUSH Q6H PRN PRN Reason: NAUSEA OR VOMITING Senna/Docusate Sodium (Lin-Colace) 1 tab PO BID [facility] Last Admin: 10/08/18 08:39 Dose: Not Given Sennosides (Senokot) 17.2 mg PO Q12H PRN PRN Reason: Moderate Constipation Sodium Chloride (Ns Flush) 2 ml IV.FLUSH BID [facility] Last Admin: 10/08/18 08:40 Dose: Not Given Sodium Chloride (Ns Flush) 2 ml IV.FLUSH PRN PRN PRN Reason: FLUSH AFTER USING IV ACCESS Allergies/Adverse Reactions: Allergies Allergy/AdvReac Type Severity Reaction Status Date / Time adhesive Allergy Itching Verified 09/29/18 15:29 bee venom protein (honey bee) Allergy Unconscious Verified 09/26/18 01:15 cephalexin [From Keflex] Allergy Anaphylaxis Verified 09/26/18 01:15 codeine Allergy Itching Verified 09/26/18 01:15 ketorolac [From Toradol] Allergy Weakness Verified 09/26/18 02:14 Penicillins Allergy Itching Verified 09/26/18 01:15 Review of Systems All other systems reviewed negative except as stated in HPI Physical Exam Vital signs: Vital Signs 10/07/18 16:00 10/07/18 20:00 10/08/18 00:00 Temperature 97.4 F L 98.0 F 97.8 F Pulse Rate 109 H 81 87 Respiratory Rate 20 18 Blood Pressure 100/50 L 110/57 L 106/55 L Pulse Oximetry 97 100 98 10/08/18 04:00 10/08/18 08:00 10/08/18 11:49 Temperature 98.0 F 97.8 F Pulse Rate 98 H 104 H Respiratory Rate 16 20 Blood Pressure 112/57 L 124/83 Pulse Oximetry 97 98 98 Intake & Output 10/07/18 10/08/18 10/08/18 18:59 06:59 18:59 Intake Total 1702 / 1702 2358 / 2358 396 / 396 Balance 1702 / 1702 2358 / 2358 396 / 396 Weight 64.2 kg Intake: IV 1222 / 1222 1908 / 1908 396 / 396 NS Inj 1,000 ML @ 100 mls/hr IV 1000 / 1000 1604 / 1604 396 / 396 .CONT .Q10H [facility] Rx#:[id number] Cerebyx Inj 100 MGPE In NS Inj 52 / 52 104 / 104 50 ML @ 208 mls/hr IV.SIG Q8HR [facility] Rx#:[id number] Cerebyx Inj 1,000 MGPE In NS 70 / 70 Inj 50 ML @ 280 mls/hr IV.SIG ONCE ONE Rx#:[id number] Keppra 1000 mg/100 mL Premix 100 / 100 200 / 200 100 ML @ 400 mls/hr IV.SIG Q8HR [facility] Rx#:[id number] Oral 480 / 480 450 / 450 Other: # Voids 0 Date of Last Bowel Movement 10/07/18 # Bowel Movements 0 Narrative: GENERAL: in NAD, sitting up in chair SKIN: Warm and dry. HEAD: Atraumatic. Normocephalic. EYES: Pupils equal and round. No scleral icterus. ENT: No nasal bleeding or discharge. NECK: Trachea midline. No JVD. RESPIRATORY: No accessory muscle use. MUSCULOSKELETAL: Fractured left foot in boot NEUROLOGICAL: Awake alert oriented x3, pleasant, appropriate, no aphasia, extraocular was intact no facial asymmetry tongue midline strength 5 out of 5 upper lower limbs with exception of foot she had fracture and is in a boot gait not assessed secondary fall risk PSYCHIATRIC: Appropriate mood and affect; insight and judgment normal. - Constitutional no acute distress - Routine HEENT Exam Head: Present: normocephalic Eye: Present: EOMI - Urinary Catheter Management Straight Cath placed during this visit: yes Reason for continuing: Not indwelling catheter Insertion date: 10/02/18 Insertion time: 05:40 Objective Laboratory Results - last 24 hr 10/08/18 10/08/18 07:18 07:18 WBC 6.6 RBC 3.04 L Hgb 9.8 L Hct 29.0 L MCV 95.1 MCH 32.1 MCHC 33.7 RDW 15.8 Plt Count 309 MPV 9.2 Neut % (Auto) 65.3 Lymph % (Auto) 16.2 [place] % (Auto) 11.7 H Eos % (Auto) 5.3 H Baso % (Auto) 1.5 Neut # (Auto) 4.3 Lymph # (Auto) 1.1 [place] # (Auto) 0.8 Eos # (Auto) 0.3 Baso # (Auto) 0.1 WBC Differential . Differential Comment Auto diff final Sodium 146 H Potassium 3.4 L Chloride 111 H Carbon Dioxide 26.0 Anion Gap 9 BUN 5 L Creatinine 0.48 L Estimated GFR Greater than 89 Random Glucose 71 L Calcium 7.6 L Magnesium 1.7 Total Bilirubin 0.1 L AST 23 ALT 13 Alkaline Phosphatase 89 Total Protein 5.6 L D Albumin 2.0 L Phenytoin 12.6 Microbiology 10/05/18 16:21 Urine Culture - Preliminary Clean Catch Urine Group D Enterococcus 10/05/18 09:55 Gram Stain - Final Lumbar Puncture CSF Culture - Final No growth in 72 hours 10/02/18 03:15 Aerobic Blood Culture - Final Blood - Peripheral No growth in 5 days Anaerobic Blood Culture - Final No growth in 5 days 10/02/18 03:20 Aerobic Blood Culture - Final Blood - Peripheral No growth in 5 days Anaerobic Blood Culture - Final No growth in 5 days Review/Management - Diagnosis (1) Seizures Code(s): R56.9 - Unspecified convulsions Status: Acute Current Visit: Yes (2) History of splenectomy Code(s): Z90.81 - Acquired absence of spleen Status: Chronic Current Visit: No (3) History of gastric bypass Code(s): Z98.84 - Bariatric surgery status Status: Chronic Current Visit: No (4) Chronic pain Code(s): G89.29 - Other chronic pain Status: Chronic Current Visit: No - Review/Management Plan: Continue on Dilantin for now Level therapeutic We will change Keppra to Topamax that she was taking Topamax before with good results and it also helped her migraine headaches She is doing well today neurologically No driving, operating any heavy machinery or dangerous machinery, swimming alone for at least 6 months of being seizure, spell free. (4) Chronic pain Qualifiers: Chronic pain type: chronic pain syndrome Qualified Code(s): G89.4 - Chronic pain syndrome
[2018-10-08] MEDS: Phenytoin Susp 100 MG/4 ML UDC PO SCH ×2 (13:19→17:10)
[2018-10-08] MEDS: Topiramate 25 MG Tablet PO SCH ×2 (13:24→21:22)
--- NOTE | 2018-10-08 15:56 | ECG ---
Date Performed: 10/07/2018 Time Performed: 13:23:37 PTAGE: 52 years EKG: Sinus rhythm NORMAL ECG PREVIOUS TRACING : 10/02/2018 03.45 Compared to previous tracing, heart rate is slower, PVC's h ave resolved an the ST-T changes have improved. DOCTOR: Marcellus Tafoya Interpretating Date/Time 10/08/2018 15:55:15
[2018-10-09 05:09] LABS: Hematocrit 32.5 % (35.0-46.0); Hemoglobin 10.7 gm/dL (11.6-15.3); Mean Corpuscular Hemoglobin 32.1 pg (27.0-34.0); Mean Corpuscular Volume 97.3 fL (80.0-100.0); Platelet Count 372 th/mm3 (150-450); Red Blood Count 3.34 mil/mm3 (4.00-5.30); White Blood Count 9.5 th/mm3 (4.0-11.0)
[2018-10-09] MEDS: Sod Chloride 0.9% Inj 1,000 ML IV.CONT SCH ×3 (05:36→21:12)
--- NOTE | 2018-10-09 09:23 | P.PNIM ---
Subjective Interval history: f/u; seizure in no acute distress. looks and feels better today. no seizures since yesterday. no new complaints. Physical Exam Vital signs: Vital Signs 10/08/18 11:49 10/08/18 12:00 10/08/18 15:45 Temperature 98.0 F Pulse Rate 93 H Respiratory Rate 20 Blood Pressure 116/71 Pulse Oximetry 98 98 98 10/08/18 16:00 10/08/18 20:00 10/09/18 00:00 Temperature 98.0 F 97.5 F L 98.2 F Pulse Rate 103 H 110 H 86 Respiratory Rate 20 19 19 Blood Pressure 118/64 109/59 L 112/62 Pulse Oximetry 98 99 98 10/09/18 04:00 10/09/18 08:00 Temperature 98.0 F 98.8 F Pulse Rate 100 H 104 H Respiratory Rate 19 18 Blood Pressure 112/69 127/60 Pulse Oximetry 99 99 Intake & Output 10/08/18 10/09/18 10/09/18 18:59 06:59 18:59 Intake Total 996 / 996 3000 / 3000 Output Total 600 / 600 Balance 396 / 396 3000 / 3000 Weight 59.7 kg Intake: IV 396 / 396 1999 / 1999 NS Inj 1,000 ML @ 100 mls/hr IV 396 / 396 1999 / 1999 .CONT .Q10H [facility] Rx#:[id number] Oral 600 / 600 1000 / 1000 Output: Urine 600 / 600 Other: # Voids 4 # Bowel Movements 2 3 - Constitutional no acute distress - Routine Respiratory Exam Present: CTA bilaterally - Routine Cardiovascular Exam Present: RRR - Routine Abdominal Exam Present: soft - Routine Extremities Exam Comments: no pedal edema. - Routine Neurological Exam Present: alert, oriented X3 - Urinary Catheter Management Straight Cath placed during this visit: yes Reason for continuing: Not indwelling catheter Insertion date: 10/02/18 Insertion time: 05:40 Results - Labs CBC & Chem 7: 10/09/18 04:00 10/08/18 07:18 Laboratory Results - last 24 hr 10/08/18 10/09/18 13:40 04:00 WBC 9.5 RBC 3.34 L Hgb 10.7 L Hct 32.5 L MCV 97.3 MCH 32.1 MCHC 33.0 RDW 16.0 Plt Count 372 MPV 9.0 Prelim Diff (Auto) Manual diff required Differential Comment . Phenytoin 12.4 Microbiology 10/05/18 16:21 Clean Catch Urine Urine Culture - Preliminary Group D Enterococcus 10/05/18 09:55 Lumbar Puncture Gram Stain - Final 10/05/18 09:55 Lumbar Puncture CSF Culture - Final No growth in 72 hours Assessment and Plan - Assessment (1) Encephalopathy Code(s): G93.40 - Encephalopathy, unspecified Status: Acute (2) Opioid dependence Code(s): F11.20 - Opioid dependence, uncomplicated Status: Acute (3) UTI (urinary tract infection) Code(s): N39.0 - Urinary tract infection, site not specified Status: Acute (4) Open abdominal wall wound Code(s): S31.109A - Unspecified open wound of abdominal wall, unspecified quadrant without penetration into peritoneal cavity, initial encounter Status : Chronic (5) Foot fracture Code(s): S92.909A - Unspecified fracture of unspecified foot, initial encounter for closed fracture Status: Acute (6) LUI (acute kidney injury) Code(s): N17.9 - Acute kidney failure, unspecified Status: Acute - Plan Encephalopathy: acute episode of bizarre behavior-putting purse in the microwave, likely multifactorial-acute UTI, underlying Psych disorder, possible opioid withdrawal and dehydration. seems to be improving. CT/MRI Head w/ no acute findings- Seen by psych not an indication for IP psych hospitalization. evaluated by neurology and initially started on Keppra; now on Dilantin and Topamax. s/p LP; culture negative so far; Herpes negative; IV Acyclovir was dc';ed. seizure initially on Keppra- now on Dilantin and Topamax. neurology f/u appreciated. UTI with ESBL- E-coli Ertapenem was stopped- repeated UC with group D Enterococcus. ID follow-up appreciated. hypokalemia -replaced. Opioid Dependence: previous admit 09/20-09/24, found to have significant opioid dependence, weaned off meds and d/c'd w/ no opioids, tachycardic on arrival- possibly related to withdrawal. Ativan prn. Off narcotics . Abdominal Wall Infection: Chronic. Stable. Healing well LUI: improved. Foot Fx: Left foot 2nd/3rd/4th toe fractures, s/p splint on previous ER visit, consulted Dr. Truong as patient is not compliant with weightbearing. Seen by board design engineer appreciate input; recommended wrap left foot with BORIS wrap to knee / CAM walker/Walking boot / heel weight bear with walker assist and f/u as outpatient. DVT Prophylaxis: SCD/Teds Discharge Planning: dc to [place] today if cleared by neurology and ID. see med list. d/w the patient. (4) Open abdominal wall wound Qualifiers:
[2018-10-09 09:30] LABS: Eosinophils 4 % (0-4); Lymphocytes 18 % (9-44); Monocytes 1 % (0-8); Platelet Estimate Normal (Normal); Platelet Morphology Normal (Normal)
--- NOTE | 2018-10-09 10:30 | P.DS ---
Date of admission: 10/05/18 14:22 Primary care physician: No Primary Care Physician Brief History from admission: This is a 52-year-old female with a PMH of HTN, Hypothyroidism, TIA, Migraine, H /o Bowel Obstruction w/ Fistula and Open Abdominal Wound and Bipolar Disorder who was brought to the ER by EMS for AMS. Per report, pt's neighbors called due to bizarre behavior-putting her purse in the microwave, cleaning the house w / alcohol wipes. Multiple ER presentations/admissions recently...Previous admit 09/20-09/24/18 for abdominal wound w/ fistula s/p eval by Dr. Chang w/ surgery and d/c'd on Flagyl, also noted to have significant Opioid Dependence and all opioids discontinued at the time of discharge. Seen in ER on 09/26/18 for c/o headache, CT Head negative and d/c'd home. Seen again 09/30/18 for migraine after Fioricet/Sumatriptan w/ no relief and d/c'd home. Seen on for voluntary Psych eval as pt reporting manic episode w/ hallucinations, stated she was told she had Bipolar Disorder but has not been on medication, ultimately left before Psych eval. Also found to have 2nd/3rd/4th fractures left foot, s/p splint w/ instructions to follow w/ Dr. Truong as outpatient. Seen again on 09/30/18 for c/o generalized pain, U/a from 09/29 + and pt d/c'd on Macrobid. at bedside states he took pt to on 09/30 for another evaluation and was again told she had UTI and was d/c'd home. Today, states pt had been doing better, he went to work this evening and when he returned home found that she had been brought here. Pt not providing meaningful history. Does admit to feeling confused and "not myself". On arrival, BP 143/64, HR 123, O2 sat 98% on RA, Afebrile. WBC 13. INR 1.0. Creatinine 1.25, previously 0.77 on 09/29/2018. Troponin negative. Alcohol negative. CT Head negative. Review of urine culture from 09/29 w/ ESBL +E. Coli , s/p Gent in ER. DS: Diagnosis - Discharge Diagnosis (1) Encephalopathy Status: Acute (2) Opioid dependence Status: Acute (3) UTI (urinary tract infection) Status: Acute (4) Open abdominal wall wound Status: Chronic (5) Foot fracture Status: Acute (6) LUI (acute kidney injury) Status: Acute DS: Summary Hospital Course: Encephalopathy: acute episode of bizarre behavior-putting purse in the microwave, likely multifactorial-acute UTI, underlying Psych disorder, possible opioid withdrawal and dehydration. seems to be improving. CT/MRI Head w/ no acute findings- Seen by psych not an indication for IP psych hospitalization. evaluated by neurology and initially started on Keppra; now on Dilantin and Topamax. s/p LP; culture negative so far; Herpes negative; IV Acyclovir was dc';ed. seizure initially on Keppra- now on Dilantin and Topamax. neurology f/u appreciated. UTI with ESBL- E-coli Ertapenem was stopped- repeated UC with group D Enterococcus. ID follow-up appreciated. hypokalemia -replaced. Opioid Dependence: previous admit 09/20-09/24, found to have significant opioid dependence, weaned off meds and d/c'd w/ no opioids, tachycardic on arrival- possibly related to withdrawal. Ativan prn. Off narcotics . Abdominal Wall Infection: Chronic. Stable. Healing well LUI: improved. Foot Fx: Left foot 2nd/3rd/4th toe fractures, s/p splint on previous ER visit, consulted Dr. Truong as patient is not compliant with weightbearing. Seen by human resource management instructor appreciate input; recommended wrap left foot with BORIS wrap to knee / CAM walker/Walking boot / heel weight bear with walker assist and f/u as outpatient. DVT Prophylaxis: SCD/Teds - Time Spent with Patient Total time spent providing and/or coordinating discharge services: Less than 30 minutes - Quality: VTE Deep Vein Thrombosis/Pulmonary Embolism Present on Admission: No Exam Vital signs: Vital Signs 10/08/18 11:49 10/08/18 12:00 10/08/18 15:45 Temperature 98.0 F Pulse Rate 93 H Respiratory Rate 20 Blood Pressure 116/71 Pulse Oximetry 98 98 98 10/08/18 16:00 10/08/18 20:00 10/09/18 00:00 Temperature 98.0 F 97.5 F L 98.2 F Pulse Rate 103 H 110 H 86 Respiratory Rate 20 19 19 Blood Pressure 118/64 109/59 L 112/62 Pulse Oximetry 98 99 98 10/09/18 04:00 10/09/18 08:00 Temperature 98.0 F 98.8 F Pulse Rate 100 H 104 H Respiratory Rate 19 18 Blood Pressure 112/69 127/60 Pulse Oximetry 99 99 Intake & Output 10/08/18 10/09/18 10/09/18 18:59 06:59 18:59 Intake Total 996 / 996 3000 / 3000 Output Total 600 / 600 Balance 396 / 396 3000 / 3000 Weight 59.7 kg Intake: IV 396 / 396 1999 NS Inj 1,000 ML @ 100 mls/hr IV 396 / 396 1999 .CONT .Q10H [facility] Rx#:[id number] Oral 600 / 600 1000 / 1000 Output: Urine 600 / 600 Other: # Voids 4 # Bowel Movements 2 3 - Constitutional no acute distress - Routine Respiratory Exam Present: CTA bilaterally - Routine Cardiovascular Exam Present: RRR - Routine Abdominal Exam Present: soft - Routine Extremities Exam Comments: no pedal edema. - Routine Neurological Exam Present: alert, oriented X3 Results Procedures completed during hospitalization: LP Labs on day of discharge: Labs from last 24 hours 10/09/18 10/08/18 04:00 13:40 WBC 9.5 RBC 3.34 L Hgb 10.7 L Hct 32.5 L MCV 97.3 MCH 32.1 MCHC 33.0 RDW 16.0 Plt Count 372 MPV 9.0 Prelim Diff (Auto) Manual diff required WBC Differential Manual diff final Seg Neuts % (Manual) 76 H Lymphocytes % (Manual) 18 Monocytes % (Manual) 1 Eosinophils % (Manual) 4 Basophils % (Manual) 1 Abs Neuts (Manual) 7.2 Differential Comment . Platelet Estimate Normal Platelet Morphology Normal Phenytoin 12.4 - Impressions ITS Impressions Head CT 10/04/18 14:25 CONCLUSION: 1. No acute intracranial abnormality. . Chest X-Ray 10/04/18 14:26 CONCLUSION: No acute abnormality is seen. Head MRI 10/05/18 00:00 CONCLUSION: 1. No acute intracranial findings. 2. Nonspecific mild hyperintensity of the basal ganglia on the T1-weighted images only. Likely an incidental finding. Lumbar Puncture Fluoroscopy 10/05/18 00:00 CONCLUSION: 1. Uncomplicated fluoroscopically guided lumbar puncture. Discharge Plan - Discharge Disposition Patient Disposition: [facility] Rehab Inpatient - Discharge Condition Condition: Fair - Physicians Team Primary Care Provider: Primary Care Allie Yeboah Attending Provider: Kelvin Bonilla Other Providers: Raul Le MD ; Danyel Stone MD ; Neha Gómez DPM ; Terry Almanzar MD, PhD
[2018-10-09] MEDS: Phenytoin Susp 100 MG/4 ML UDC PO SCH ×3 (10:39→17:43)
[2018-10-09] MEDS: Metoprolol Tartrate 25 MG Tablet PO SCH ×2 (10:44→21:07)
[2018-10-09] MEDS: Sodium Chloride 0.9% 2 ML Flush BID IV.FLUSH SCH ×2 (10:44→21:08)
[2018-10-09] MEDS: Magnesium Oxide 400 MG Tablet PO SCH (10:44)
[2018-10-09] MEDS: Topiramate 25 MG Tablet PO SCH ×2 (10:45→21:08)
[2018-10-09] MEDS: Senna/Docusate Sodium 8.6/50 MG Tablet PO SCH ×2 (10:45→21:08)
[2018-10-09] MEDS: Collagenase Oint 30 GM Tube TOPICAL SCH (10:46)
--- NOTE | 2018-10-09 12:21 | P.PNID ---
Subjective Remarks: Patient is awake. She has no complaints. Afebrile. Denies PACK. Denies dysuria. Repeat urine culture has 10 - 25,00 cols of Enterococcus. This is a 52-year-old white female, who presented to the emergency department with altered mental status. She was recently seen in the hospital and urine culture was taken and came back with extended-spectrum beta-lactamase Escherichia coli. She was put on Macrobid before the final report of the urine culture became available. Past Medical History: PAST MEDICAL HISTORY: Hypothyroidism, migraines, pulmonary embolism, TIA, and bowel obstruction. Allergies/Adverse Reactions: Allergies adhesive Allergy (Verified 09/29/18 15:29) Itching bee venom protein (honey bee) Allergy (Verified 09/26/18 01:15) Unconscious cephalexin [From Keflex] Allergy (Verified 09/26/18 01:15) Anaphylaxis codeine Allergy (Verified 09/26/18 01:15) Itching ketorolac [From Toradol] Allergy (Verified 09/26/18 02:14) Weakness PT STATES POSSIBLE REACTION FROM TORADOL CAUSED STROKE LIKE SYMPTOMS CAUSING HER TO BE STROKE ALERTED. Penicillins Allergy (Verified 09/26/18 01:15) Itching Objective Vital Signs 10/08/18 15:45 10/08/18 16:00 10/08/18 20:00 Temperature 98.0 F 97.5 F L Pulse Rate 103 H 110 H Respiratory Rate 20 19 Blood Pressure 118/64 109/59 L Pulse Oximetry 98 98 99 10/09/18 00:00 10/09/18 04:00 10/09/18 08:00 Temperature 98.2 F 98.0 F 98.8 F Pulse Rate 86 100 H 104 H Respiratory Rate 19 19 18 Blood Pressure 112/62 112/69 127/60 Pulse Oximetry 98 99 99 Intake & Output 10/08/18 10/09/18 10/09/18 18:59 06:59 18:59 Intake Total 996 / 996 3000 / 3000 Output Total 600 / 600 Balance 396 / 396 3000 / 3000 Weight 59.7 kg Intake: IV 396 / 396 1999 NS Inj 1,000 ML @ 100 mls/hr IV 396 / 396 1999 .CONT .Q10H [facility] Rx#:[id number] Oral 600 / 600 1000 / 1000 Output: Urine 600 / 600 Other: # Voids 4 # Bowel Movements 2 3 10/05/18 16:21 Clean Catch Urine Urine Culture - Final Enterococcus faecium 10/05/18 09:55 Lumbar Puncture Gram Stain - Final 10/05/18 09:55 Lumbar Puncture CSF Culture - Final No growth in 72 hours 10/02/18 03:15 Blood - Peripheral Aerobic Blood Culture - Final No growth in 5 days 10/02/18 03:15 Blood - Peripheral Anaerobic Blood Culture - Final No growth in 5 days 10/02/18 03:20 Blood - Peripheral Aerobic Blood Culture - Final No growth in 5 days 10/02/18 03:20 Blood - Peripheral Anaerobic Blood Culture - Final No growth in 5 days 10/05/18 09:55 Cerebral Spinal Fluid - Lumbar Puncture Fungal Smear - Final No fungal elements seen 10/05/18 09:55 Cerebral Spinal Fluid - Lumbar Puncture Fungal Culture - Pending 10/05/18 09:55 Cerebral Spinal Fluid - Lumbar Puncture Acid Fast Bacilli Smear - Final No acid fast bacilli seen 10/05/18 09:55 Cerebral Spinal Fluid - Lumbar Puncture Mycobacterial Culture - Pending 10/03/18 11:27 Wound - Abdominal Gram Stain - Final 10/03/18 11:27 Wound - Abdominal Wound Culture - Final Rare growth normal skin bridgett No anaerobes isolated Lab - Hematology Results 10/08/18 10/09/18 07:18 04:00 WBC 6.6 9.5 RBC 3.04 L 3.34 L Hgb 9.8 L 10.7 L Hct 29.0 L 32.5 L MCV 95.1 97.3 MCH 32.1 32.1 MCHC 33.7 33.0 RDW 15.8 16.0 Plt Count 309 372 MPV 9.2 9.0 Prelim Diff (Auto) Manual diff required Neut % (Auto) 65.3 Lymph % (Auto) 16.2 [place] % (Auto) 11.7 H Eos % (Auto) 5.3 H Baso % (Auto) 1.5 Neut # (Auto) 4.3 Lymph # (Auto) 1.1 [place] # (Auto) 0.8 Eos # (Auto) 0.3 Baso # (Auto) 0.1 WBC Differential . Manual diff final Seg Neuts % (Manual) 76 H Lymphocytes % (Manual) 18 Monocytes % (Manual) 1 Eosinophils % (Manual) 4 Basophils % (Manual) 1 Abs Neuts (Manual) 7.2 Differential Comment Auto diff final . Platelet Estimate Normal Platelet Morphology Normal Lab - Chemistry Results 10/08/18 07:18 Sodium 146 H Potassium 3.4 L Chloride 111 H Carbon Dioxide 26.0 Anion Gap 9 BUN 5 L Creatinine 0.48 L Estimated GFR Greater than 89 Random Glucose 71 L Calcium 7.6 L Magnesium 1.7 Total Bilirubin 0.1 L AST 23 ALT 13 Alkaline Phosphatase 89 Total Protein 5.6 L D Albumin 2.0 L Imaging: ITS Impressions Head CT 10/04/18 14:25 CONCLUSION: 1. No acute intracranial abnormality. . Chest X-Ray 10/04/18 14:26 CONCLUSION: No acute abnormality is seen. Head MRI 10/05/18 00:00 CONCLUSION: 1. No acute intracranial findings. 2. Nonspecific mild hyperintensity of the basal ganglia on the T1-weighted images only. Likely an incidental finding. Lumbar Puncture Fluoroscopy 10/05/18 00:00 CONCLUSION: 1. Uncomplicated fluoroscopically guided lumbar puncture. Physical Exam: PHYSICAL EXAMINATION: GENERAL: No acute distress.Awake and alert and oriented. HEENT: Head is atraumatic. Extraocular movements are grossly intact. Pupils reactive to light. No icterus. Oropharynx moist mucosa without visible lesions. NECK: Supple. No adenopathy. LUNGS: Clear BS. HEART: Regular S1 and S2, without audible murmurs, rubs or gallops. ABDOMEN: Bowel sounds present. Soft, No tenderness. EXTREMITIES: No clubbing or cyanosis. SKIN: No diffuse rash. NEUROLOGIC: Nonfocal. PSYCHIATRIC: Calm and cooperative. Assessment and Plan - Plan ASSESSMENT: 1. Urinary tract infection due to extended-spectrum beta-lactamase Escherichia coli. Treated. Repeat urine culture has Enterococcus < 100,000 and patient is asymptomatic. 2. Acute kidney disease. Improved. RECOMMENDATIONS: Okay to discharge without antibiotics.
[2018-10-10] MEDS: Sod Chloride 0.9% Inj 1,000 ML IV.CONT SCH ×2 (06:31→07:15)
[2018-10-10] MEDS: Phenytoin Susp 100 MG/4 ML UDC PO SCH (09:21)
[2018-10-10] MEDS: Metoprolol Tartrate 25 MG Tablet PO SCH (09:22)
[2018-10-10] MEDS: Topiramate 25 MG Tablet PO SCH (09:22)
[2018-10-10] MEDS: Sodium Chloride 0.9% 2 ML Flush BID IV.FLUSH SCH (09:22)
[2018-10-10] MEDS: Collagenase Oint 30 GM Tube TOPICAL SCH (09:23)
[2018-10-10] MEDS: Senna/Docusate Sodium 8.6/50 MG Tablet PO SCH (09:24)
--- NOTE | 2018-10-10 11:01 | P.PNIM ---
Subjective Interval history: f/u; seizure in no acute distress. overall doing fine. no seizures over night. d/w the RN and no acute issues. wants to go home today. Physical Exam Vital signs: Vital Signs 10/09/18 12:00 10/09/18 16:00 10/09/18 20:00 Temperature 98.6 F 99.3 F 99.2 F Pulse Rate 78 99 H 105 H Respiratory Rate 18 18 Blood Pressure 115/56 L 112/57 L 118/58 L Pulse Oximetry 99 97 97 10/10/18 00:00 10/10/18 04:00 10/10/18 08:00 Temperature 98.5 F 98.8 F 98.3 F Pulse Rate 86 90 115 H Respiratory Rate 18 20 20 Blood Pressure 109/52 L 125/58 L 135/63 Pulse Oximetry 96 97 97 Intake & Output 10/09/18 10/10/18 10/10/18 18:59 06:59 18:59 Intake Total 2069 1020 / 1020 100 / 100 Output Total 850 / 850 Balance 2069 170 / 170 100 / 100 Weight 59.6 kg Intake: IV 1000 / 1000 900 / 900 100 / 100 NS Inj 1,000 ML @ 100 mls/hr IV 1000 / 1000 900 / 900 100 / 100 .CONT .Q10H MARIELLA Rx#:[id number] Oral 1070 / 1070 120 / 120 Output: Urine 850 / 850 Other: # Voids 5 Date of Last Bowel Movement 10/09/18 10/09/18 10/10/18 # Bowel Movements 1 - Constitutional no acute distress - Routine Respiratory Exam Present: CTA bilaterally - Routine Cardiovascular Exam Present: RRR - Routine Abdominal Exam Present: soft - Routine Extremities Exam Comments: no pedal edema. - Routine Neurological Exam Present: alert, oriented X3 - Urinary Catheter Management Straight Cath placed during this visit: yes Reason for continuing: Not indwelling catheter Insertion date: 10/02/18 Insertion time: 05:40 Results - Labs CBC & Chem 7: 10/09/18 04:00 10/08/18 07:18 Laboratory Results - last 24 hr 10/05/18 10/09/18 10/10/18 09:55 13:07 04:28 CSF Cryptococcus Ag Not detected Phenytoin 11.4 10.7 Microbiology 10/05/18 16:21 Clean Catch Urine Urine Culture - Final Enterococcus faecium - Procedures LP Assessment and Plan - Assessment (1) Encephalopathy Code(s): G93.40 - Encephalopathy, unspecified Status: Acute (2) Opioid dependence Code(s): F11.20 - Opioid dependence, uncomplicated Status: Acute (3) UTI (urinary tract infection) Code(s): N39.0 - Urinary tract infection, site not specified Status: Acute (4) Open abdominal wall wound Code(s): S31.109A - Unspecified open wound of abdominal wall, unspecified quadrant without penetration into peritoneal cavity, initial encounter Status : Chronic (5) Foot fracture Code(s): S92.909A - Unspecified fracture of unspecified foot, initial encounter for closed fracture Status: Acute (6) LUI (acute kidney injury) Code(s): N17.9 - Acute kidney failure, unspecified Status: Acute - Plan Encephalopathy: acute episode of bizarre behavior-putting purse in the microwave, likely multifactorial-acute UTI, underlying Psych disorder, possible opioid withdrawal and dehydration. seems to be improving. CT/MRI Head w/ no acute findings- Seen by psych not an indication for IP psych hospitalization. evaluated by neurology and initially started on Keppra; now on Dilantin and Topamax. s/p LP; culture negative so far; Herpes negative; IV Acyclovir was dc';ed. seizure initially on Keppra- now on Dilantin and Topamax. neurology f/u appreciated. UTI with ESBL- E-coli Ertapenem was stopped- repeated UC with group D Enterococcus. ID follow-up appreciated. hypokalemia -replaced. Opioid Dependence: previous admit 09/20-09/24, found to have significant opioid dependence, weaned off meds and d/c'd w/ no opioids, tachycardic on arrival- possibly related to withdrawal. Ativan prn. Off narcotics . Abdominal Wall Infection: Chronic. Stable. Healing well LUI: improved. Foot Fx: Left foot 2nd/3rd/4th toe fractures, s/p splint on previous ER visit, consulted Dr. Truong as patient is not compliant with weightbearing. Seen by automotive vehicle inspector appreciate input; recommended wrap left foot with BORIS wrap to knee / CAM walker/Walking boot / heel weight bear with walker assist and f/u as outpatient. DVT Prophylaxis: SCD/Teds Discharge Planning: dc home today. see med list. f/u; pcp, podiatry and neurology. d/w the patient and family. d/w the RN and the case management. (4) Open abdominal wall wound Qualifiers:
--- NOTE | 2018-10-10 11:09 | P.DCO ---
- Physical Therapy Order: Evaluate and treat - Home Health Nursing Order: Medical education, Signs/symptoms of disease process, Medication education-adverse effect, Nursing assessment with vital signs - Case Management Consult Case Management Consult-Home Health: Yes - Certification I have seen patient Jael Morrison on 10/10/18. My clinical findings support the need for the requested home health care services because: Limited mobility due to disease progression I certify that my clinical findings support that this patient is homebound because: Unsteady gait/balance
== END 2018-10-10 13:05 | disposition home health service (06) ==
LOC: NEPC 02:40 → INTOOBSV 04:32 → NEDA 04:32 → N04 06:00
PROVIDERS: ADMIT Internal Medicine; ATTEND Internal Medicine